=== PATIENT | female | born 2000 | race Caucasian/White ===

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

== ENCOUNTER → 2018-03-22 | Outpatient (CLI) | payer BC, OTHER ==
[2018-03-22 15:35] LABS: Basophils % (A) 0 %; Eosinophils % (A) 1 %; HCT 37.1 % (34.0-46.0); HGB 12.5 gm/dL (11.4-16.0); Lymphocytes # (A) 1.5 k/uL (1.0-4.8); Lymphocytes % (A) 26 %; MCH 30.4 pg (25.0-35.0); MCHC 33.5 g/dL (31.0-37.0); MCV 90.7 fL (80.0-100.0); Mean Platelet Volume 7.8; Monocytes # (A) 0.2 k/uL (0-1.0); Monocytes % (A) 4 %; Neutrophils # (A) 3.8 k/uL (1.3-7.7); Neutrophils % (A) 68 %; Platelet Count 226 k/uL (150-450); RBC 4.09 m/uL (3.80-5.40); RDW 12.9 % (11.5-15.5); WBC 5.6 k/uL (4.0-11.0)
== END | disposition home or self-care (01) ==
LOC: LABPAT 15:04
PROVIDERS: ATTEND Obstetrics & Gynecology
DX: Z01.812 Encounter for preprocedural laboratory examination (principal)
CPT/HCPCS: 36415; 85025

== ENCOUNTER → 2018-04-02 | Day surgery (SDC) | payer BC, OTHER ==
[2018-04-01 11:06] VITALS: BMI 29.2
[~2018-04-02] MED LIST: ACETAMINOPHEN IV (For NPO) 1,000 MG/100 ML VIAL ONE; BUPIVACAINE (PF) 0.25% 30 ML VIAL SQ ONE; DEXAMETHASONE SOD PHOSPHATE 10 MG/ML 1 ML VIAL IV ONE; GLYCOPYRROLATE 0.2 MG/ML 2 ML VIAL ONE; HYDROcodone/APAP 5-325MG 1 EACH TAB PO ONE; KETOROLAC 30 MG/ML 1 ML VIAL ONE; LACTATED RINGERS 1,000 ML IV SCH; LIDOCAINE 1% 20 ML VIAL (10MG/ML) FOR IV START INTRADERMA ONE; LIDOCAINE 1% INJ 10MG/ML (20 ML MDV) ONE; MEPERIDINE 50 MG/ML SYRINGE ONE; MIDAZOLAM 2 MG/2 ML VIAL IV PRN; MIDAZOLAM 2 MG/2 ML VIAL ONE; NEOSTIGMINE 1 MG/ML 10 ML VIAL ONE; ONDANSETRON 4 MG/2 ML VIAL IVP ONE; ONDANSETRON ODT 4 MG TAB PO ONE; PROPOFOL 10 MG/ML 20 ML VIAL IV ONE; Pre Op ABX Message 1 EACH MISC MISCELLANE ONE; ROCURONIUM BROMIDE 10 MG/ML 10 ML VIAL IV ONE; SCOPOLAMINE 1.5MG/72HR PATCH TRANSDERM ONE; fentaNYL (PF) 50 MCG/ML 2 ML AMP ONE
--- NOTE | 2018-04-02 08:24 | P.HPOB ---
History of Present Illness H&P Date: 04/02/18 Chief Complaint: ovarian cyst 17 year old G0 presents for laparoscopic aspiration of right ovarian cyst and possible oopherectomy, possible laparotomy. She has a 5.5cm right ovarian cyst. Review of Systems All systems: negative Constitutional: Denies chills, Denies fever Eyes: denies blurred vision, denies pain Ears, nose, mouth and throat: Denies headache, Denies sore throat Cardiovascular: Denies chest pain, Denies shortness of breath Respiratory: Denies cough Gastrointestinal: Denies abdominal pain, Denies diarrhea, Denies nausea, Denies vomiting Genitourinary: Denies dysuria, Denies hematuria Musculoskeletal: Denies myalgias Integumentary: Denies pruritus, Denies rash Neurological: Denies numbness, Denies weakness Psychiatric: Denies anxiety, Denies depression Endocrine: Denies fatigue, Denies weight change Past Medical History Past Medical History: No Reported History Additional Past Medical History / Comment(s): Hx bronchitis. History of Any Multi-Drug Resistant Organisms: MRSA Date of last positivie culture/infection: 2012 MDRO Source:: Right rib area Past Surgical History: No Surgical Hx Reported Additional Past Surgical History / Comment(s): Plastic surgery below right eye as an . Past Anesthesia/Blood Transfusion Reactions: No Reported Reaction Past Psychological History: No Psychological Hx Reported Smoking Status: Never smoker Past Alcohol Use History: None Reported Past Drug Use History: None Reported - Past Family History Mother Family Medical History: No Reported History Medications and Allergies Home Medications Medication Instructions Recorded Confirmed Type Acetaminophen Tab [Tylenol Tab] 650 mg PO Q4H PRN 04/01/18 04/01/18 History Allergies Allergy/AdvReac Type Severity Reaction Status Date / Time No Known Allergies Allergy Verified 04/01/18 10:55 Exam Osteopathic Statement: *. No significant issues noted on an osteopathic structural exam other than those noted in the History and Physical/Consult. Heart: Regular rate and rhythm Lungs: Clear to auscultation bilaterally Abdomen: Soft, mildly tender Extremities: Negative Homans sign Assessment and Plan (1) Right ovarian cyst Status: Acute Code(s): N83.201 - UNSPECIFIED OVARIAN CYST, RIGHT SIDE SNOMED Code(s): 59974311 Plan: 1. laparoscopic aspiration of right ovarian cyst, possible oopherectomy, possible laparotomy
[2018-04-02 10:56] VITALS: RESP 16
--- NOTE | 2018-04-02 12:47 | P.OP ---
Date of Procedure: 04/02/18 Preoperative Diagnosis: 1. right ovarian cyst Postoperative Diagnosis: 1. endometriosis Procedure(s) Performed: Diagnostic laparoscopy with cauterization of endometriosis Anesthesia: BREANN Surgeon: Maddy Plunkett Estimated Blood Loss (ml): 5 IV fluids (ml): 700 Urine output (ml): 150 Pathology: none sent Condition: stable Disposition: PACU Operative Findings: Evidence of ruptured right ovarian cyst, fluid in posterior cul-de-sac, endometriosis along the right uterosacral ligament and in the left ovarian fossa , and in the posterior cul-de-sac. Description of Procedure: Patient was taken to the operating room where general anesthesia was obtained without difficulty. She was prepped and draped in normal sterile fashion in the dorsal lithotomy position, legs placed in the Yoav stirrups. Bladder drained of all urine. [place] speculum placed in the vagina and the anterior lip the cervix was grasped with single-tooth tenaculum. The uterus is sounded to 7 cm and the kroner manipulator was placed. Attention was then turned to the abdomen and gloves were changed. A 10 mm infraumbilical incision was made the scalpel and 10 mm optical trocar was placed under direct visualization. A 5 mm suprapubic Incision was made and a 5 mm optical trocar was placed under direct visualization. Survey of the pelvis revealed enlarged bilateral ovaries. There was evidence of ruptured right ovarian cyst, with some areas of erythema on the right ovary. There was endometriosis seen on the right uterosacral ligaments, the left ovarian fossa and the posterior cul-de-sac. These areas were cauterized with the hook cautery. There was a moderate amount of clear fluid and the posterior cul-de-sac. The fluid was removed with suction. All instruments were then removed from the abdomen and vagina. The 10 mm infraumbilical incision was closed with 0 Vicryl and the fascial layer and then 4-0 Vicryl in a subcuticular fashion. The 5 mm incision was closed with 4-0 Vicryl in a subcuticular fashion. Patient tolerated procedure well, sponge and instrument counts correct 2 and she was taken to recovery room in stable condition.
[2018-04-02 13:03] VITALS: TEMP 97
[2018-04-02] MEDS: fentaNYL (PF) 50 MCG/ML 2 ML AMP IV PRN ×2 (13:08→13:19)
[2018-04-02 13:59] VITALS: BP 140/71; PULSE 70
== END | disposition home or self-care (01) ==
LOC: OR 09:41
PROVIDERS: ATTEND Obstetrics & Gynecology
DX: N80.1 Endometriosis of ovary (principal); Z86.14 Personal history of Methicillin resistant Staphylococcus aureus infection
CPT/HCPCS: 81025; 58662; J2250; J1100; J2710; J2175; J2405; J2001; J3010; J1885; J0131; J2704

== ENCOUNTER 2018-06-01 14:51 | Emergency (ER) | payer BC, OTHER ==
[2018-06-01 15:02] VITALS: BP 135/96; PULSE 62; RESP 16; TEMP 98.4
[2018-06-01] MEDS ORDERED: DIPH,PERTUS(ACELL)TETVAC-LF 0.5 ML VIAL IM ONE (15:11)
--- NOTE | 2018-06-01 15:23 | ED ---
General Adult HPI - General Chief complaint: Wound/Laceration Stated complaint: Foot laceration Time Seen by Provider: 06/01/18 15:09 Source: patient, RN notes reviewed Mode of arrival: ambulatory Limitations: no limitations - History of Present Illness Initial comments: Patient 17-year-old female presenting to the emergency room today with a chief complaint of needing a tetanus shot. Patient's does admit that 2 days ago she scraped her left pinky toe on a [place]roy car. She does admit that it did break the skin. She states appears to be healing well. She states that she knows that her tetanus is not up to date. Patient denies any other complaints or symptoms. - Related Data Home Medications Medication Instructions Recorded Confirmed Acetaminophen Tab [Tylenol Tab] 650 mg PO Q4H PRN 04/01/18 04/02/18 Previous Rx's Medication Instructions Recorded HYDROcodone/APAP 5-325MG [[place] 1 - 2 tab PO Q6HR PRN #20 tab 04/02/18 5-325] Ibuprofen [Motrin] 600 mg PO Q6HR PRN #30 tab 04/02/18 Allergies Allergy/AdvReac Type Severity Reaction Status Date / Time No Known Allergies Allergy Verified 06/01/18 15:02 Review of Systems ROS Statement: Those systems with pertinent positive or pertinent negative responses have been documented in the HPI. ROS Other: All systems not noted in ROS Statement are negative. Past Medical History Past Medical History: No Reported History History of Any Multi-Drug Resistant Organisms: None Reported Past Surgical History: No Surgical Hx Reported Past Psychological History: No Psychological Hx Reported Smoking Status: Never smoker Past Alcohol Use History: None Reported Past Drug Use History: None Reported General Exam - General Exam Comments Initial Comments: General: The patient is awake and alert, in no distress, and does not appear acutely ill. Neck: The neck is supple, there is no tenderness or JVD. Musculoskeletal: Full range of motion. Sensations intact. Pedal pulse 2+. Neurological: A&O x 3. CN II-XII intact, There are no obvious motor or sensory deficits. Coordination appears grossly intact. Speech is normal. Skin: Superficial abrasion to the lateral aspect of the left fifth toe. No redness, swelling or sign of infection. Psychiatric: Normal mood and affect. Limitations: no limitations Course Vital Signs 06/01/18 14:59 Temperature 98.4 F Pulse Rate 62 Respiratory 16 Rate Blood Pressure 135/96 O2 Sat by Pulse 100 Oximetry Medical Decision Making - Medical Decision Making Patient's left fifth toe healing well. Patient's no sign of infection. Tetanus Updated patient advised continue watch for signs of infection. Disposition Clinical Impression: Toe abrasion Disposition: HOME SELF-CARE Condition: Good Instructions: Abrasion (ED) Additional Instructions: Please continue to watch for any signs of infection which may include increased pain, swelling, redness, fever or chills. Is patient prescribed a controlled substance at d/c from ED?: No Referrals: Cristina Winter MD [Primary Care Provider] - 1-2 days Time of Disposition: 15:22
== END 2018-06-01 15:36 | disposition home or self-care (01) ==
LOC: EC 14:51
DX: S90.415A Abrasion, left lesser toe(s), initial encounter (principal); Z23 Encounter for immunization; W22.8XXA Striking against or struck by other objects, initial encounter
CPT/HCPCS: 90471; 90715; 99282

== ENCOUNTER 2018-12-23 21:52 | Inpatient (IN) | payer BC, OTHER ==
[2018-12-23] MEDS ORDERED: SODIUM CHLORIDE 0.9% 1,000 ML IV STA (21:58)
--- NOTE | 2018-12-23 22:00 | ED ---
General Adult HPI - General Stated complaint: Fall Time Seen by Provider: 12/23/18 21:57 - History of Present Illness Initial comments: Laura is a pleasant 18-year-old female who is brought to the emergency department today for evaluation of syncopal episode. Patient reports that she was preparing to leave her brother's home, she states that she stood up and was walking up the stairs when she began to feel very lightheaded. She walked out the front door and felt like she may pass out so she sat down. Patient states that she doesn't recall exactly what happened after sitting down but she was feeling as though she was very lightheaded and her heart was racing she felt like her vision was darkening. Patient's significant other at bedside states the patient then fell backwards from a sitting position onto the ground, her eyes were open and her pupils appear to be dilated. Significant mother reports that the patient was nonresponsive for about 20 seconds and then came around and was a little bit confused about what happened but otherwise back to baseline immediately. There was no seizure-like or shaking activity. Patient and witnesses became concerned and called 911 for transport to the hospital. Patient reports she's been lightheaded in the past but never had a syncopal episode. She has no history of known cardiac disease. No history of DVT or PE. She does state that she was evaluated an outside hospital on Sunday for generalized malaise nausea and vomiting was diagnosed with a urinary tract infection. Patient had not yet obtained her antibiotic prescription for treatment of the urinary tract infection. - Related Data Previous Rx's Medication Instructions Recorded Ibuprofen [Motrin] 600 mg PO Q6HR PRN #30 tab 04/02/18 Allergies Allergy/AdvReac Type Severity Reaction Status Date / Time No Known Allergies Allergy Verified 12/23/18 22:23 Review of Systems ROS Statement: Those systems with pertinent positive or pertinent negative responses have been documented in the HPI. ROS Other: All systems not noted in ROS Statement are negative. Past Medical History Past Medical History: No Reported History History of Any Multi-Drug Resistant Organisms: None Reported Past Surgical History: No Surgical Hx Reported Past Psychological History: No Psychological Hx Reported Smoking Status: Never smoker Past Alcohol Use History: None Reported Past Drug Use History: None Reported General Exam - General Exam Comments Initial Comments: Physical Exam GENERAL: Patient is well-developed and well-nourished. Patient is nontoxic and well- hydrated and is in no distress. HENT: Normocephalic, Atraumatic. EYES: PERRL, EOMI PULMONARY: Unlabored respirations. No audible rales rhonchi or wheezing was noted. CARDIOVASCULAR: There is a regular rate and rhythm without any murmurs gallops or rubs. ABDOMEN: Soft and nontender with normal bowel sounds. SKIN: Skin is clear with no lesions or rashes and otherwise unremarkable. : Deferred NEUROLOGIC: Patient is alert and oriented x3. Moving all extremities spontaneously MUSCULOSKELETAL: Normal extremities with adequate strength and full range of motion. No lower extremity swelling or edema. No calf tenderness. PSYCHIATRIC: Normal psychiatric evaluation. Limitations: no limitations Course Vital Signs 12/23/18 12/23/18 21:54 23:58 Temperature 99.3 F Pulse Rate 84 83 Respiratory 16 16 Rate Blood Pressure 110/59 122/69 O2 Sat by Pulse 98 100 Oximetry EKG Findings - EKG Comments: EKG Findings:: EKG obtained at 2235, rate is 84, there is a P-wave before each QRS, rhythm is sinus, there is normal axis, there are normal intervals, [place] 176, QRS 88, QTC 4:15. There are T-wave inversions in V1 through V4 with some minimal ST depression. There are no ST elevations. There is no evidence of acute infarction. Medical Decision Making - Medical Decision Making Patient was seen and evaluated, vital signs were reviewed history was obtained from patient and EMS Previously healthy 18-year-old female currently diagnosed with urinary tract infection was experiencing nausea and vomiting earlier in the week presents with a syncopal episode. Patient did fall from a seated position backwards however there is no obvious signs of head trauma L feel this warrants further imaging for head trauma. We'll pursue further workup for syncope Labs resulted with an elevated troponin at 0.4, d-dimer is negative however given the patient's age gender and presentation with syncope I will pursue further workup for pulmonary embolism CT pulmonary embolism was negative Patient care was discussed with cardiology on-call doctor per week who recommends admission to hospital continued trending of the troponin, hold heparin at this time This plan was discussed with the patient who is agreeable Admission orders were placed, repeat troponin and cardiac profiles were ordered as well as an echo for tomorrow morning - Lab Data Result diagrams: 12/23/18 22:08 12/23/18 22:08 Lab Results 12/23/18 12/23/18 12/23/18 Range/Units 22:08 22:08 22:08 WBC 6.8 (4.0-11.0) k/uL RBC 3.79 L (3.80-5.40) m/uL Hgb 11.2 L (11.4-16.0) gm/dL Hct 34.2 (34.0-46.0) % MCV 90.3 (80.0-100.0) fL MCH 29.4 (25.0-35.0) pg MCHC 32.6 (31.0-37.0) g/dL RDW 13.7 (11.5-15.5) % Plt Count 184 (150-450) k/uL Neutrophils % 69 % Lymphocytes % 21 % Monocytes % 6 % Eosinophils % 0 % Basophils % 0 % Neutrophils # 4.7 (1.3-7.7) k/uL Lymphocytes # 1.4 (1.0-4.8) k/uL Monocytes # 0.4 (0-1.0) k/uL Eosinophils # 0.0 (0-0.7) k/uL Basophils # 0.0 (0-0.2) k/uL PT (9.0-12.0) sec INR (<1.2) APTT (22.0-30.0) sec D-Dimer (<0.60) mg/L FEU Sodium 138 (137-145) mmol/L Potassium 3.3 L (3.5-5.1) mmol/L Chloride 105 (98-107) mmol/L Carbon Dioxide 22 (22-30) mmol/L Anion Gap 11 mmol/L BUN 10 (7-17) mg/dL Creatinine 0.51 L (0.52-1.04) mg/dL Est GFR (CKD-EPI)AfAm >90 (>60 ml/min/1.73 sqM) Est GFR (CKD-EPI)NonAf >90 (>60 ml/min/1.73 sqM) Glucose 150 H (74-99) mg/dL Calcium 9.1 (8.4-10.2) mg/dL Magnesium 1.9 (1.6-2.3) mg/dL Total Bilirubin 0.6 (0.2-1.3) mg/dL AST 29 (14-36) U/L ALT 38 (9-52) U/L Alkaline Phosphatase 50 (38-126) U/L Total Creatine Kinase 60 (30-135) U/L CK-MB (CK-2) 0.8 (0.0-2.4) ng/mL CK-MB (CK-2) Rel Index 1.3 Troponin I 0.421 H* (0.000-0.034) ng/mL Total Protein 6.5 (6.3-8.2) g/dL Albumin 3.7 (3.5-5.0) g/dL Urine Color Urine Appearance (Clear) Urine pH (5.0-8.0) Ur Specific [place] (1.001-1.035) Urine Protein (Negative) Urine Glucose (UA) (Negative) Urine Ketones (Negative) Urine Blood (Negative) Urine Nitrite (Negative) Urine Bilirubin (Negative) Urine Urobilinogen (<2.0) mg/dL Ur Leukocyte Esterase (Negative) Urine RBC (0-5) /hpf Urine WBC (0-5) /hpf Urine WBC Clumps (None) /hpf Ur Squamous Epith Cells (0-4) /hpf Urine Bacteria (None) /hpf Hyaline Casts (0-2) /lpf Urine Mucus (None) /hpf Urine Opiates Screen (NotDetected) Ur Oxycodone Screen (NotDetected) Urine Methadone Screen (NotDetected) Ur Propoxyphene Screen (NotDetected) Ur Barbiturates Screen (NotDetected) U Tricyclic Antidepress (NotDetected) Ur Phencyclidine Scrn (NotDetected) Ur Amphetamines Screen (NotDetected) U Methamphetamines Scrn (NotDetected) U Benzodiazepines Scrn (NotDetected) Urine Cocaine Screen (NotDetected) U Marijuana (THC) Screen (NotDetected) 12/23/18 12/23/18 12/23/18 Range/Units 22:08 22:40 22:40 WBC (4.0-11.0) k/uL RBC (3.80-5.40) m/uL Hgb (11.4-16.0) gm/dL Hct (34.0-46.0) % MCV (80.0-100.0) fL MCH (25.0-35.0) pg MCHC (31.0-37.0) g/dL RDW (11.5-15.5) % Plt Count (150-450) k/uL Neutrophils % % Lymphocytes % % Monocytes % % Eosinophils % % Basophils % % Neutrophils # (1.3-7.7) k/uL Lymphocytes # (1.0-4.8) k/uL Monocytes # (0-1.0) k/uL Eosinophils # (0-0.7) k/uL Basophils # (0-0.2) k/uL PT 10.3 (9.0-12.0) sec INR 1.0 (<1.2) APTT 24.2 (22.0-30.0) sec D-Dimer 0.45 (<0.60) mg/L FEU Sodium (137-145) mmol/L Potassium (3.5-5.1) mmol/L Chloride (98-107) mmol/L Carbon Dioxide (22-30) mmol/L Anion Gap mmol/L BUN (7-17) mg/dL Creatinine (0.52-1.04) mg/dL Est GFR (CKD-EPI)AfAm (>60 ml/min/1.73 sqM) Est GFR (CKD-EPI)NonAf (>60 ml/min/1.73 sqM) Glucose (74-99) mg/dL Calcium (8.4-10.2) mg/dL Magnesium (1.6-2.3) mg/dL Total Bilirubin (0.2-1.3) mg/dL AST (14-36) U/L ALT (9-52) U/L Alkaline Phosphatase (38-126) U/L Total Creatine Kinase (30-135) U/L CK-MB (CK-2) (0.0-2.4) ng/mL CK-MB (CK-2) Rel Index Troponin I (0.000-0.034) ng/mL Total Protein (6.3-8.2) g/dL Albumin (3.5-5.0) g/dL Urine Color Yellow Urine Appearance Cloudy H (Clear) Urine pH 6.0 (5.0-8.0) Ur Specific [place] 1.011 (1.001-1.035) Urine Protein 1+ H (Negative) Urine Glucose (UA) Negative (Negative) Urine Ketones Trace H (Negative) Urine Blood Moderate H (Negative) Urine Nitrite Negative (Negative) Urine Bilirubin Negative (Negative) Urine Urobilinogen <2.0 (<2.0) mg/dL Ur Leukocyte Esterase Large H (Negative) Urine RBC 31 H (0-5) /hpf Urine WBC >182 H (0-5) /hpf Urine WBC Clumps Few H (None) /hpf Ur Squamous Epith Cells 4 (0-4) /hpf Urine Bacteria Many H (None) /hpf Hyaline Casts 3 H (0-2) /lpf Urine Mucus Many H (None) /hpf Urine Opiates Screen Not Detected (NotDetected) Ur Oxycodone Screen Not Detected (NotDetected) Urine Methadone Screen Not Detected (NotDetected) Ur Propoxyphene Screen Not Detected (NotDetected) Ur Barbiturates Screen Not Detected (NotDetected) U Tricyclic Antidepress Not Detected (NotDetected) Ur Phencyclidine Scrn Not Detected (NotDetected) Ur Amphetamines Screen Not Detected (NotDetected) U Methamphetamines Scrn Not Detected (NotDetected) U Benzodiazepines Scrn Not Detected (NotDetected) Urine Cocaine Screen Not Detected (NotDetected) U Marijuana (THC) Screen Detected H (NotDetected) Critical Care Time Critical Care Time: Yes Total Critical Care Time: 20 Critical Care Time: Critical Care Critical care time was exclusive of separately billable procedures and treating other patients Critical care was necessary to treat or prevent imminent or life-threatening deterioration. Critical care was time spent personally by me on the following activities: development of treatment plan with patient or surrogate, discussions with consultants, discussions with primary provider, evaluation of patient's response to treatment, examination of patient, obtaining history from patient or surrogate, ordering and performing treatments and interventions, ordering and review of laboratory studies, ordering and review of radiographic studies, pulse oximetry, re-evaluation of patient's condition and review of old charts. Disposition Clinical Impression: Syncope Disposition: ADMITTED IP TO THIS [facility] Condition: Good Is patient prescribed a controlled substance at d/c from ED?: No Referrals: Cristina Winter MD [Primary Care Provider] - 1-2 days
[2018-12-23 22:28] LABS: Basophils % (A) 0 %; Eosinophils % (A) 0 %; HCT 34.2 % (34.0-46.0); HGB 11.2 gm/dL (11.4-16.0); Lymphocytes # (A) 1.4 k/uL (1.0-4.8); Lymphocytes % (A) 21 %; MCH 29.4 pg (25.0-35.0); MCHC 32.6 g/dL (31.0-37.0); MCV 90.3 fL (80.0-100.0); Mean Platelet Volume 7.3; Monocytes # (A) 0.4 k/uL (0-1.0); Monocytes % (A) 6 %; Neutrophils # (A) 4.7 k/uL (1.3-7.7); Neutrophils % (A) 69 %; Platelet Count 184 k/uL (150-450); RBC 3.79 m/uL (3.80-5.40); RDW 13.7 % (11.5-15.5); WBC 6.8 k/uL (4.0-11.0)
[2018-12-23 22:33] LABS: ALT 38 U/L (9-52); AST 29 U/L (14-36); Albumin 3.7 g/dL (3.5-5.0); Alkaline Phosphatase 50 U/L (38-126); Anion Gap 11 mmol/L; Blood Urea Nitrogen 10 mg/dL (7-17); Calcium 9.1 mg/dL (8.4-10.2); Carbon Dioxide 22 mmol/L (22-30); Chloride 105 mmol/L (98-107); Glucose 150 mg/dL (74-99); Magnesium 1.9 mg/dL (1.6-2.3); Potassium 3.3 mmol/L (3.5-5.1); Sodium 138 mmol/L (137-145); Total Bilirubin 0.6 mg/dL (0.2-1.3); Total Protein 6.5 g/dL (6.3-8.2)
[2018-12-23 22:41] LABS: D-Dimer 0.45 mg/L FEU (<0.60); Partial Thromboplastin Time 24.2 sec (22.0-30.0); Prothrombin Time 10.3 sec (9.0-12.0)
[2018-12-23 22:49] LABS: Creatine Kinase MB 0.8 ng/mL (0.0-2.4)
[2018-12-23 22:52] LABS: Troponin I 0.421 ng/mL (0.000-0.034)
[2018-12-23 23:02] LABS: Appearance,Urine Cloudy (Clear); Bacteria,Urine Many /hpf; Bilirubin,Urine Negative (Negative); Blood,Urine Moderate (Negative); Color,Urine Yellow; Glucose,Urine (UA) Negative (Negative); Hyaline Casts,Urine 3 /lpf (0-2); Ketones,Urine Trace (Negative); Leukocyte Esterase,Urine Large (Negative); Mucus,Urine Many /hpf; Nitrite,Urine Negative (Negative); Protein,Urine 1+ (Negative); RBC,Urine 31 /hpf (0-5); Specific Gravity,Urine 1.011 (1.001-1.035); Squamous Epithelial Cell,Urine 4 /hpf (0-4); Urobilinogen,Urine <2.0 mg/dL (<2.0); WBC,Urine >182 /hpf (0-5)
[2018-12-23 23:31] LABS: Amphetamine Screen,Urine Not Detected (NotDetected); Barbiturate Screen,Urine Not Detected (NotDetected); Benzodiazepines Screen,Urine Not Detected (NotDetected); Cocaine Screen,Urine Not Detected (NotDetected); Methadone Screen, Urine Not Detected (NotDetected); Opiate Screen,Urine Not Detected (NotDetected); Oxycodone Screen, Urine Not Detected (NotDetected); Phencyclidine Screen,Urine Not Detected (NotDetected); Tricyclic Antidepressant,Urine Not Detected (NotDetected); Urn Cannabinoid Scrn Detected (NotDetected)
--- NOTE | 2018-12-23 23:53 | CT ---
EXAMINATION TYPE: CT chest angio for PE DATE OF EXAM: 12/23/2018 COMPARISON: None HISTORY: R/O PE chest pain CT DLP: 238.30 mGycm Automated exposure control for dose reduction was used. CONTRAST: CT Chest for pulmonary embolism performed with with IV Contrast, patient injected with 60 mL of Isovu e 370. FINDINGS: There are 3-D post processed images. The heart and mediastinum are normal. Lungs are clear of infiltrate. There is no mediastinal adenopat hy. There are no hilar masses. Thoracic aorta appears normal. Heart size is normal. There is no pleur al effusion. There is no pericardial effusion. There is normal contrast opacification of the pulmonary arteries. There are no filling defects. IMPRESSION: Negative exam. No evidence of pulmonary embolism.
--- NOTE | 2018-12-24 04:21 | XR ---
EXAMINATION TYPE: XR chest 2V DATE OF EXAM: 12/23/2018 COMPARISON: 01/19/2017 HISTORY: Syncope TECHNIQUE: Frontal and lateral views of the chest are obtained. FINDINGS: Heart and mediastinum are normal. Lungs are clear. Diaphragm is normal. Bony thorax appear s normal. IMPRESSION: Normal chest. No change.
[2018-12-24 04:32] VITALS: BMI 26.6
[2018-12-24 06:06] LABS: Creatine Kinase MB 0.6 ng/mL (0.0-2.4)
[2018-12-24 06:09] LABS: Troponin I 0.21 ng/mL (0.000-0.034)
[2018-12-24] MEDS ORDERED: Potassium Replacement Protocol 1 EACH MISC MISCELLANE PRN (06:19)
[2018-12-24] MEDS: POTASSIUM CHLORIDE ER 20 MEQ TAB.ER PO SCH ×2 (06:50→09:00)
--- NOTE | 2018-12-24 08:18 | CT ---
EXAMINATION TYPE: CT brain wo con DATE OF EXAM: 12/24/2018 COMPARISON: None HISTORY: syncope CT DLP: 1040.[address] of the brain was performed. The ventricles, basal cisterns and sulci overlying the cerebral convexities demonstrate a normal appe arance. There is no evidence for intracranial hemorrhage or sulcal effacement. No mass effects are seen. Osseous calvarium is intact. If symptoms persist consider MRI as clinically warranted. IMPRESSION: 1. No acute intracranial process is seen at this time.
[2018-12-24 10:17] LABS: Creatine Kinase MB 0.8 ng/mL (0.0-2.4)
[2018-12-24 10:20] LABS: Troponin I 0.406 ng/mL (0.000-0.034)
--- NOTE | 2018-12-24 11:41 | P.CRDCN ---
History of Present Illness Consult date: 12/24/18 Chief complaint: Syncope History of present illness: This is a pleasant 1-year-old female patient with no previous medical history who was admitted to the hospital with syncopal episode. The patient was in her usual state of health until yesterday when she was preparing to leave home and then she stood up and suddenly she felt weak as well as she felt dizzy and lightheaded. She sat down and after that she did have a syncopal episode witnessed right the people around her. The syncopal episode lasted for about 20 seconds and according to people around her the patient did have dilate the pupil. No symptoms of chest pain or chest discomfort. No incontinence. No seizure like activity noted. The patient does not have any past medical history and she does not take any medications for any medical problem. The past surgical history is also not significant. She states she does not smoke but apparently the urine drug screen came in positive for marijuana. She does have very significant family history of coronary artery disease with her father who at age 50 because of massive heart attack. We get involved in the care of the patient because her troponin came in to be slightly abnormal with 3 abnormal sets. The EKG showed sinus rhythm with T- wave inversion in the anteroseptal leads. The computed tomography scan of the brain did not show any acute abnormalities. The UA came in to be positive for UTI. Currently the patient is on antibiotic. The urine drug screen came in to be also positive for marijuana. Past Medical History Past Medical History: No Reported History Additional Past Medical History / Comment(s): endometriosis History of Any Multi-Drug Resistant Organisms: None Reported Past Surgical History: No Surgical Hx Reported Additional Past Surgical History / Comment(s): laprascopic ovarian cyst removal Past Anesthesia/Blood Transfusion Reactions: No Reported Reaction Smoking Status: Never smoker - Past Family History Mother Additional Family Medical History / Comment(s): ovarian cysts Father Family Medical History: Myocardial Infarction ([place]) Additional Family Medical History / Comment(s): father in june from a heart attack Medications and Allergies Home Medications Medication Instructions Recorded Confirmed Type Ibuprofen [Motrin] 600 mg PO Q6HR PRN #30 tab 04/02/18 12/23/18 Rx Allergies Allergy/AdvReac Type Severity Reaction Status Date / Time No Known Allergies Allergy Verified 12/23/18 22:23 Physical Exam Vitals: Vital Signs Temp Pulse Pulse Resp BP BP Pulse Ox 12/24/18 09:06 89 16 12/24/18 09:05 99.3 F 89 16 111/57 96 12/24/18 04:31 97.8 F 89 18 129/70 100 12/24/18 04:00 97.8 F 89 18 129/70 100 12/24/18 03:33 75 20 113/80 97 12/24/18 00:00 79 22 122/69 99 12/23/18 23:58 83 16 122/69 100 12/23/18 21:54 99.3 F 84 16 110/59 98 Intake and Output 12/23/18 12/24/18 12/24/18 22:59 06:59 14:59 Intake Total 1050 Balance 1050 Intake: Amount of Fluid Infused ( 1050 ml) Other: Voiding Method Toilet Toilet Weight 69.853 kg 68.4 kg - Constitutional General appearance: no acute distress - Respiratory Respiratory: bilateral: CTA - Cardiovascular Rhythm: regular Heart sounds: normal: S1, S2 Results 12/23/18 22:08 12/23/18 22:08 Cardiac Enzymes 12/23/18 12/23/18 12/24/18 Range/Units 22:08 22:08 04:01 AST 29 (14-36) U/L CK-MB (CK-2) 0.8 0.6 (0.0-2.4) ng/mL Troponin I 0.421 H* 0.210 H* (0.000-0.034) ng/mL 12/24/18 Range/Units 09:16 AST (14-36) U/L CK-MB (CK-2) 0.8 (0.0-2.4) ng/mL Troponin I 0.406 H* (0.000-0.034) ng/mL Coagulation 12/23/18 Range/Units 22:08 PT 10.3 (9.0-12.0) sec APTT 24.2 (22.0-30.0) sec CBC 12/23/18 Range/Units 22:08 WBC 6.8 (4.0-11.0) k/uL RBC 3.79 L (3.80-5.40) m/uL Hgb 11.2 L (11.4-16.0) gm/dL Hct 34.2 (34.0-46.0) % Plt Count 184 (150-450) k/uL Comprehensive Metabolic Panel 12/23/18 Range/Units 22:08 Sodium 138 (137-145) mmol/L Potassium 3.3 L (3.5-5.1) mmol/L Chloride 105 (98-107) mmol/L Carbon Dioxide 22 (22-30) mmol/L BUN 10 (7-17) mg/dL Creatinine 0.51 L (0.52-1.04) mg/dL Glucose 150 H (74-99) mg/dL Calcium 9.1 (8.4-10.2) mg/dL AST 29 (14-36) U/L ALT 38 (9-52) U/L Alkaline Phosphatase 50 (38-126) U/L Total Protein 6.5 (6.3-8.2) g/dL Albumin 3.7 (3.5-5.0) g/dL Current Medications Generic Name Dose Route Start Last Admin Trade Name Freq PRN Reason Stop Dose Admin Aspirin 325 mg 12/25/18 09:00 Aspirin PO DAILY MELISSA Ceftriaxone Sodium 1,000 mg/ 50 mls @ 100 mls/hr 12/24/18 21:00 Sodium Chloride IVPB HS MELISSA Miscellaneous Information 1 each 12/24/18 06:19 Potassium Per Protocol MISCELLANE DAILY PRN Per Protocol Protocol Intake and Output 12/23/18 12/24/18 12/24/18 22:59 06:59 14:59 Intake Total 1050 Balance 1050 Intake: Amount of Fluid Infused ( 1050 ml) Other: Voiding Method Toilet Toilet Weight 69.853 kg 68.4 kg 12/23/18 22:08 12/23/18 22:08 Assessment and Plan Assessment: Assessment #1 syncopal episode of unknown etiology at this point #2 mildly abnormal cardiac enzymes Plan #1 the syncopal episode could be secondary to orthostatic hypotension #2 I am concerned about a cardiac etiology giving her abnormal troponin. #3 I am going to obtain an echocardiogram was Doppler. #4 check the TSH free T4 #5 follow-up with the patient.
[2018-12-24 15:24] VITALS: RESP 16
[2018-12-24] MEDS: SODIUM CHLORIDE 0.9% 1,000 ML IV SCH (15:50)
--- NOTE | 2018-12-24 18:26 | P.HPIM ---
History of Present Illness Pleasant 18-year-old female came in with complaints of syncope and significantly abnormal urine and fever of high-grade although she doesn't have any high-grade fever here patient is single abnormal urine. Patient was lightheaded and lost consciousness denied any seizure-like activity loss of bowel or bladder continence patient's troponins are minimally elevated EKG did not show any acute ST-T wave changes patient has pleuritic chest pain negative for pulmonary embolism troponins are 0.2 and 0.4 respectively. Patient doesn't have any premature coronary artery disease. Patient denied any cough patient denied any dysuria. Patient sees his urine is independent normal with elevated leukocyte esterase nitrate and increased white blood cell count and WBC clumps Review of Systems REVIEW OF SYSTEMS: CONSTITUTIONAL: No fever, no malaise, no fatigue. HEENT: No recent visual problems or hearing problems. Denied any sore throat. CARDIOVASCULAR: No orthopnea, PND, no palpitations, PULMONARY: No shortness of breath, no cough, no hemoptysis. GASTROINTESTINAL: No diarrhea, no nausea, no vomiting, no abdominal pain. NEUROLOGICAL: No headaches, no weakness, no numbness. HEMATOLOGICAL: Denies any bleeding or petechiae. GENITOURINARY: Denies any burning micturition, frequency, or urgency. MUSCULOSKELETAL/RHEUMATOLOGICAL: Denies any joint pain, swelling, or any muscle pain. ENDOCRINE: Denies any polyuria or polydipsia. The rest of the 14-point review of systems is negative. Past Medical History Past Medical History: No Reported History Additional Past Medical History / Comment(s): endometriosis History of Any Multi-Drug Resistant Organisms: None Reported Past Surgical History: No Surgical Hx Reported Additional Past Surgical History / Comment(s): laprascopic ovarian cyst removal Past Anesthesia/Blood Transfusion Reactions: No Reported Reaction Smoking Status: Never smoker - Past Family History Mother Additional Family Medical History / Comment(s): ovarian cysts Father Family Medical History: Myocardial Infarction ([place]) Additional Family Medical History / Comment(s): father in june from a heart attack Medications and Allergies Home Medications Medication Instructions Recorded Confirmed Type Ibuprofen [Motrin] 600 mg PO Q6HR PRN #30 tab 04/02/18 12/23/18 Rx Allergies Allergy/AdvReac Type Severity Reaction Status Date / Time No Known Allergies Allergy Verified 12/23/18 22:23 Physical Exam Vitals: Vital Signs Temp Pulse Pulse Resp BP BP Pulse Ox 12/24/18 15:24 90 16 12/24/18 15:23 99.9 F H 90 16 120/72 96 12/24/18 12:04 89 18 12/24/18 12:03 98.4 F 89 18 127/61 96 12/24/18 09:06 89 16 12/24/18 09:05 99.3 F 89 16 111/57 96 12/24/18 04:31 97.8 F 89 18 129/70 100 12/24/18 04:00 97.8 F 89 18 129/70 100 12/24/18 03:33 75 20 113/80 97 12/24/18 00:00 79 22 122/69 99 12/23/18 23:58 83 16 122/69 100 12/23/18 21:54 99.3 F 84 16 110/59 98 Intake and Output 12/24/18 12/24/18 12/24/18 06:59 14:59 22:59 Intake Total 1050 1070 Output Total 500 Balance 1050 570 Intake: Amount of Fluid Infused ( 1050 ml) Intake, IV Titration 400 Amount Sodium Chloride 0.9% 1, 400 000 ml @ 100 mls/hr IV . Q10H [facility] Rx#:[id number] Oral 670 Output: Urine 500 Other: Voiding Method Toilet Toilet Toilet # Voids 1 Weight 68.4 kg PHYSICAL EXAMINATION: GENERAL: The patient is alert and oriented x3, not in any acute distress. Well developed, well nourished. HEENT: Pupils are round and equally reacting to light. EOMI. No scleral icterus. No conjunctival pallor. Normocephalic, atraumatic. No pharyngeal erythema. No thyromegaly. CARDIOVASCULAR: S1 and S2 present. No murmurs, rubs, or gallops. PULMONARY: Chest is clear to auscultation, no wheezing or crackles. ABDOMEN: Soft, nontender, nondistended, normoactive bowel sounds. No palpable organomegaly. MUSCULOSKELETAL: No joint swelling or deformity. EXTREMITIES: No cyanosis, clubbing, or pedal edema. NEUROLOGICAL: Gross neurological examination did not reveal any focal deficits. SKIN: No rashes. Results CBC & Chem 7: 12/23/18 22:08 12/23/18 22:08 Labs: Abnormal Lab Results - Last 24 Hours (Table) 12/23/18 12/23/18 12/23/18 Range/Units 22:08 22:08 22:08 RBC 3.79 L (3.80-5.40) m/uL Hgb 11.2 L (11.4-16.0) gm/dL ESR (0-20) mm/hr Potassium 3.3 L (3.5-5.1) mmol/L Creatinine 0.51 L (0.52-1.04) mg/dL Glucose 150 H (74-99) mg/dL Troponin I 0.421 H* (0.000-0.034) ng/mL Urine Appearance (Clear) Urine Protein (Negative) Urine Ketones (Negative) Urine Blood (Negative) Ur Leukocyte Esterase (Negative) Urine RBC (0-5) /hpf Urine WBC (0-5) /hpf Urine WBC Clumps (None) /hpf Urine Bacteria (None) /hpf Hyaline Casts (0-2) /lpf Urine Mucus (None) /hpf U Marijuana (THC) Screen (NotDetected) 12/23/18 12/23/18 12/24/18 Range/Units 22:40 22:40 04:01 RBC (3.80-5.40) m/uL Hgb (11.4-16.0) gm/dL ESR (0-20) mm/hr Potassium (3.5-5.1) mmol/L Creatinine (0.52-1.04) mg/dL Glucose (74-99) mg/dL Troponin I 0.210 H* (0.000-0.034) ng/mL Urine Appearance Cloudy H (Clear) Urine Protein 1+ H (Negative) Urine Ketones Trace H (Negative) Urine Blood Moderate H (Negative) Ur Leukocyte Esterase Large H (Negative) Urine RBC 31 H (0-5) /hpf Urine WBC >182 H (0-5) /hpf Urine WBC Clumps Few H (None) /hpf Urine Bacteria Many H (None) /hpf Hyaline Casts 3 H (0-2) /lpf Urine Mucus Many H (None) /hpf U Marijuana (THC) Screen Detected H (NotDetected) 12/24/18 12/24/18 Range/Units 09:16 09:16 RBC (3.80-5.40) m/uL Hgb (11.4-16.0) gm/dL ESR 54 H (0-20) mm/hr Potassium (3.5-5.1) mmol/L Creatinine (0.52-1.04) mg/dL Glucose (74-99) mg/dL Troponin I 0.406 H* (0.000-0.034) ng/mL Urine Appearance (Clear) Urine Protein (Negative) Urine Ketones (Negative) Urine Blood (Negative) Ur Leukocyte Esterase (Negative) Urine RBC (0-5) /hpf Urine WBC (0-5) /hpf Urine WBC Clumps (None) /hpf Urine Bacteria (None) /hpf Hyaline Casts (0-2) /lpf Urine Mucus (None) /hpf U Marijuana (THC) Screen (NotDetected) Microbiology - Last 24 Hours (Table) 12/23/18 22:40 Urine Culture - Preliminary Urine,Voided Assessment and Plan Plan: -Sepsis secondary to urinary tract infection for which patient on Rocephin which will be continued -Syncope probably due to UTI and the hypotension related to UTI patient will be started on IV fluids and will be continued on IV fluids - Hyperkalemia: Potassium will be supplemented -Minimally elevated troponin secondary to sepsis and elevated ESR secondary to sepsis. Cardiology evaluated the patient because of minimally elevated troponins -Pleuritic chest pain Musko skeletal in nature PE was ruled out.
--- NOTE | 2018-12-24 20:20 | ECHOF ---
Referral Reason:syncope, elevated trop MEASUREMENTS -------- HEIGHT: 160.0 cm WEIGHT: 68.0 kg BP: 129/70 IVSd: 1.0 cm (0.6 - 1.1) LVIDd: 4.7 cm (3.9 - 5.3) LVPWd: 1.0 cm (0.6 - 1.1) IVSs: 1.4 cm LVIDs: 2.9 cm LVPWs: 1.4 cm RVIDd: 3.1 cm (< 3.3) LAESV Index (A-L): 14.68 ml/m Ao Diam: 2.5 cm (2.0 - 3.7) LA Diam: 3.0 cm (2.7 - 3.8) AV Cusp: 1.8 cm (1.5 - 2.6) EPSS: 0.5 cm MV E Sonny: 1.27 m/s MV DecT: 244 ms MV A Sonny: 0.84 m/s MV E/A Ratio: 1.52 RAP: 5.00 mmHg RVSP: 24.22 mmHg MV EF SLOPE: 132.56 mm/s (70 - 150) MV EXCURSION: 1.94 cm (> 18.000) FINDINGS -------- Sinus rhythm. This was a technically good study. The left ventricular size is normal. Left ventricular wall thickness is normal. Overall left vent ricular systolic function is normal with, an EF between 55 - 60 %. The right ventricle is normal in size and function. Normal LA size by volume 22+/-6 ml/m2. The right atrium is normal in size. The aortic valve is trileaflet, and appears structurally normal. No aortic stenosis or regurgitation. The mitral valve leaflets are mildly thickened. There is trace to mild mitral regurgitation. Trace tricuspid regurgitation present. Right ventricular systolic pressure is normal at < 35 mmHg. There is no evidence of pulmonary hypertension. Trace/mild (physiologic) pulmonic regurgitation. The aortic root size is normal. Normal inferior vena cava with normal inspiratory collapse consistent with estimated right atrial pre ssure of 5 mmHg. There is no pericardial effusion. CONCLUSIONS -------- 1. Sinus rhythm. 2. This was a technically good study. 3. The left ventricular size is normal. 4. Left ventricular wall thickness is normal. 5. Overall left ventricular systolic function is normal with, an EF between 55 - 60 %. 6. Normal LA size by volume 22+/-6 ml/m2. 7. The aortic valve is trileaflet, and appears structurally normal. No aortic stenosis or regurgitati on. 8. The mitral valve leaflets are mildly thickened. 9. There is trace to mild mitral regurgitation. 10. Trace tricuspid regurgitation present. 11. Right ventricular systolic pressure is normal at < 35 mmHg. 12. There is no evidence of pulmonary hypertension. 13. Trace/mild (physiologic) pulmonic regurgitation. 14. The aortic root size is normal. 15. There is no pericardial effusion. GRAVITY METER OPERATOR: Wilner Rodriguez RDCS
[2018-12-24] MEDS: IBUPROFEN 600 MG TAB PO SCH (22:23)
[2018-12-25 06:10] LABS: HCT 30.6 % (34.0-46.0); HGB 9.8 gm/dL (11.4-16.0); MCH 29.8 pg (25.0-35.0); MCHC 32.1 g/dL (31.0-37.0); MCV 92.7 fL (80.0-100.0); Mean Platelet Volume 6.8; Platelet Count 196 k/uL (150-450); RDW 13.8 % (11.5-15.5); WBC 3.9 k/uL (4.0-11.0)
[2018-12-25 06:27] LABS: Anion Gap 7 mmol/L; Blood Urea Nitrogen 6 mg/dL (7-17); Calcium 8.9 mg/dL (8.4-10.2); Carbon Dioxide 26 mmol/L (22-30); Chloride 110 mmol/L (98-107); Cholesterol 112 mg/dL (<200); Glucose 99 mg/dL (74-99); HDL Cholesterol 21 mg/dL (40-60); LDL Cholesterol,Calculated 76 mg/dL (0-99); Potassium 4.1 mmol/L (3.5-5.1); Sodium 143 mmol/L (137-145); Triglycerides 74 mg/dL (<150)
[2018-12-25] MEDS: SODIUM CHLORIDE 0.9% 1,000 ML IV SCH ×3 (07:14→21:01)
--- NOTE | 2018-12-25 07:20 | P.PN ---
Subjective Progress Note Date: 12/25/18 Principal diagnosis: Abnormal cardiac enzymes This is a pleasant 1-year-old female patient with no previous medical history who was admitted to the hospital with syncopal episode. The patient was in her usual state of health until yesterday when she was preparing to leave home and then she stood up and suddenly she felt weak as well as she felt dizzy and lightheaded. She sat down and after that she did have a syncopal episode witnessed right the people around her. The syncopal episode lasted for about 20 seconds and according to people around her the patient did have dilate the pupil. No symptoms of chest pain or chest discomfort. No incontinence. No seizure like activity noted. The patient does not have any past medical history and she does not take any medications for any medical problem. The past surgical history is also not significant. She states she does not smoke but apparently the urine drug screen came in positive for marijuana. She does have very significant family history of coronary artery disease with her father who at age 50 because of massive heart attack. We get involved in the care of the patient because her troponin came in to be slightly abnormal with 3 abnormal sets. The EKG showed sinus rhythm with T- wave inversion in the anteroseptal leads. The computed tomography scan of the brain did not show any acute abnormalities. The UA came in to be positive for UTI. Currently the patient is on antibiotic. The urine drug screen came in to be also positive for marijuana. On follow-up with the patient today, 12/25/2018, she did have an episode of pleuritic chest discomfort which has resolved with ibuprofen. 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 No anginal chest pain or chest discomfort. I did review the troponin trend which does not seem to be consistent with acute myocardial infarction. I would monitor the patient for additional 24 hours. Get the patient up and around. I would rather obtain a cardiac CTA probably as an outpatient to rule out any coronary anomaly more than atherosclerosis coronary arteries. Also the echocardiogram revealed normal LV function without any evidence of pericardial effusion. Objective - Vital Signs Vital signs: Vital Signs Temp 98.7 F 12/25/18 04:00 Pulse 76 12/25/18 04:00 Resp 16 12/25/18 04:00 BP 105/62 12/25/18 04:00 Pulse Ox 98 12/25/18 04:00 Intake & Output 12/24/18 12/25/18 12/25/18 18:59 06:59 18:59 Intake Total 1070 125 Output Total 500 Balance 570 125 Weight 68.2 kg Intake: Intake, IV Titration 400 Amount Sodium Chloride 0.9% 1, 400 000 ml @ 100 mls/hr IV . Q10H [facility] Rx#:[id number] Oral 670 125 Output: Urine 500 Other: Voiding Method Toilet Toilet # Voids 1 1 - Constitutional General appearance: Present: no acute distress - Respiratory Respiratory: bilateral: CTA - Cardiovascular Rhythm: regular Heart sounds: normal: S1, S2 - Labs CBC & Chem 7: 12/25/18 05:32 12/25/18 05:32 Labs: Abnormal Lab Results - Last 24 Hours (Table) 12/24/18 12/24/18 12/25/18 Range/Units 09:16 09:16 05:32 WBC (4.0-11.0) k/uL RBC (3.80-5.40) m/uL Hgb (11.4-16.0) gm/dL Hct (34.0-46.0) % ESR 54 H (0-20) mm/hr Chloride 110 H (98-107) mmol/L BUN 6 L (7-17) mg/dL Creatinine 0.46 L (0.52-1.04) mg/dL Troponin I 0.406 H* (0.000-0.034) ng/mL HDL Cholesterol 21 L (40-60) mg/dL 12/25/18 Range/Units 05:32 WBC 3.9 L (4.0-11.0) k/uL RBC 3.30 L (3.80-5.40) m/uL Hgb 9.8 L (11.4-16.0) gm/dL Hct 30.6 L (34.0-46.0) % ESR (0-20) mm/hr Chloride (98-107) mmol/L BUN (7-17) mg/dL Creatinine (0.52-1.04) mg/dL Troponin I (0.000-0.034) ng/mL HDL Cholesterol (40-60) mg/dL Microbiology - Last 24 Hours (Table) 12/23/18 22:40 Urine Culture - Preliminary Urine,Voided Assessment and Plan Assessment: Assessment #1 syncopal episode of unknown etiology at this point #2 mildly abnormal cardiac enzymes Plan #1 the cardiac enzymes trend does not consistent with acute myocardial injury #2 the abnormal enzymes could be related to kaley/myocarditis #3 continue the aspirin for now #4 CTA of the coronary arteries to rule out any coronary anomaly #5 recommended keeping the patient for additional 24 hours
[2018-12-25] MEDS: IBUPROFEN 600 MG TAB PO SCH ×4 (08:10→21:12)
[2018-12-25] MEDS: ASPIRIN 325 MG TAB PO SCH (08:11)
--- NOTE | 2018-12-25 12:14 | P.PN ---
Subjective 18-year-old admitted for urinary tract infection I am awaiting urine cultures. Constitutional: Denied any fatigue denied any fever. Cardio vascular: denied any chest pain, palpitations Gastrointestinal denied any nausea vomiting Pulmonary: Denied any shortness of breath cough Neurologic denied any new focal deficits All inpatient medications were reviewed and appropriate changes in these medications as dictated in the interval history and assessment and plan. Objective - Vital Signs Vital signs: Vital Signs Temp 97.3 F L 12/25/18 07:55 Pulse 72 12/25/18 07:55 Resp 16 12/25/18 07:55 BP 112/71 12/25/18 07:55 Pulse Ox 98 12/25/18 07:55 Intake & Output 12/24/18 12/25/18 12/25/18 18:59 06:59 18:59 Intake Total 1070 125 360 Output Total 500 Balance 570 125 360 Weight 68.2 kg Intake: Intake, IV Titration 400 Amount Sodium Chloride 0.9% 1, 400 000 ml @ 100 mls/hr IV . Q10H [facility] Rx#:[id number] Oral 670 125 360 Output: Urine 500 Other: Voiding Method Toilet Toilet # Voids 1 1 - Exam PHYSICAL EXAMINATION: GENERAL: The patient is alert and oriented x3, not in any acute distress. Well developed, well nourished. HEENT: Pupils are round and equally reacting to light. EOMI. No scleral icterus. No conjunctival pallor. Normocephalic, atraumatic. No pharyngeal erythema. No thyromegaly. CARDIOVASCULAR: S1 and S2 present. No murmurs, rubs, or gallops. PULMONARY: Chest is clear to auscultation, no wheezing or crackles. ABDOMEN: Soft, nontender, nondistended, normoactive bowel sounds. No palpable organomegaly. MUSCULOSKELETAL: No joint swelling or deformity. EXTREMITIES: No cyanosis, clubbing, or pedal edema. NEUROLOGICAL: Gross neurological examination did not reveal any focal deficits. SKIN: No rashes. - Labs CBC & Chem 7: 12/25/18 05:32 12/25/18 05:32 Labs: Abnormal Lab Results - Last 24 Hours (Table) 12/24/18 12/25/18 12/25/18 Range/Units 09:16 05:32 05:32 WBC 3.9 L (4.0-11.0) k/uL RBC 3.30 L (3.80-5.40) m/uL Hgb 9.8 L (11.4-16.0) gm/dL Hct 30.6 L (34.0-46.0) % ESR 54 H (0-20) mm/hr Chloride 110 H (98-107) mmol/L BUN 6 L (7-17) mg/dL Creatinine 0.46 L (0.52-1.04) mg/dL HDL Cholesterol 21 L (40-60) mg/dL Microbiology - Last 24 Hours (Table) 12/23/18 22:40 Urine Culture - Preliminary Urine,Voided Assessment and Plan Plan: -Sepsis secondary to urinary tract infection for which patient on Rocephin which will be continued awaiting urine cultures -Syncope probably due to UTI and the hypotension related to UTI patient will be started on IV fluids and will be continued on IV fluids - Hyperkalemia: Potassium was supplemented -Minimally elevated troponin secondary to sepsis and elevated ESR secondary to sepsis. Cardiology evaluated the patient because of minimally elevated troponins -Pleuritic chest pain Musko skeletal in nature PE was ruled out.
[2018-12-26] MEDS: SODIUM CHLORIDE 0.9% 1,000 ML IV SCH (00:27)
[2018-12-26 07:26] LABS: HCT 30.2 % (34.0-46.0); MCH 30.5 pg (25.0-35.0); MCV 92.5 fL (80.0-100.0); Mean Platelet Volume 6.8; Platelet Count 202 k/uL (150-450); RBC 3.27 m/uL (3.80-5.40); RDW 13.8 % (11.5-15.5); WBC 3.1 k/uL (4.0-11.0)
[2018-12-26 07:40] LABS: Anion Gap 4 mmol/L; Blood Urea Nitrogen 4 mg/dL (7-17); Calcium 8.9 mg/dL (8.4-10.2); Carbon Dioxide 26 mmol/L (22-30); Chloride 110 mmol/L (98-107); Glucose 93 mg/dL (74-99); Potassium 3.9 mmol/L (3.5-5.1); Sodium 140 mmol/L (137-145)
--- NOTE | 2018-12-26 08:11 | P.PN ---
Subjective Progress Note Date: 12/26/18 Principal diagnosis: Abnormal cardiac enzymes This is a pleasant 1-year-old female patient with no previous medical history who was admitted to the hospital with syncopal episode. The patient was in her usual state of health until yesterday when she was preparing to leave home and then she stood up and suddenly she felt weak as well as she felt dizzy and lightheaded. She sat down and after that she did have a syncopal episode witnessed right the people around her. The syncopal episode lasted for about 20 seconds and according to people around her the patient did have dilate the pupil. No symptoms of chest pain or chest discomfort. No incontinence. No seizure like activity noted. The patient does not have any past medical history and she does not take any medications for any medical problem. The past surgical history is also not significant. She states she does not smoke but apparently the urine drug screen came in positive for marijuana. She does have very significant family history of coronary artery disease with her father who at age 50 because of massive heart attack. We get involved in the care of the patient because her troponin came in to be slightly abnormal with 3 abnormal sets. The EKG showed sinus rhythm with T- wave inversion in the anteroseptal leads. The computed tomography scan of the brain did not show any acute abnormalities. The UA came in to be positive for UTI. Currently the patient is on antibiotic. The urine drug screen came in to be also positive for marijuana. On follow-up with the patient today, December 262018, the patient remains asymptomatic from the cardiac risk standpoint overview. No chest pain or chest discomfort. No shortness of breath. The echo revealed normal LV function. Overall the troponin trend does not reflect acute myocardial injury. Having said that, the patient can be discharged home and I will follow-up with the patient in the office as an outpatient or possible coronary CTA to be done Objective - Vital Signs Vital signs: Vital Signs Temp 98.7 F 12/26/18 03:27 Pulse 58 L 12/26/18 03:27 Resp 16 12/26/18 03:27 BP 111/77 12/26/18 03:27 Pulse Ox 99 12/26/18 03:27 Intake & Output 12/25/18 12/26/18 12/26/18 18:59 06:59 18:59 Intake Total 720 900 Balance 720 900 Weight 69.5 kg Intake: IV 900 [id number] 1,000 mg In 900 Sodium Chloride 0.9% 50 ml @ 100 mls/hr IVPB HS [facility] Rx#:[id number] Oral 720 Other: Voiding Method Toilet Toilet # Voids 3 - Constitutional General appearance: Present: no acute distress - Respiratory Respiratory: bilateral: CTA - Cardiovascular Rhythm: regular Heart sounds: normal: S1, S2 - Labs CBC & Chem 7: 12/26/18 06:23 12/26/18 06:23 Labs: Abnormal Lab Results - Last 24 Hours (Table) 12/26/18 12/26/18 Range/Units 06:23 06:23 WBC 3.1 L (4.0-11.0) k/uL RBC 3.27 L (3.80-5.40) m/uL Hgb 10.0 L (11.4-16.0) gm/dL Hct 30.2 L (34.0-46.0) % Chloride 110 H (98-107) mmol/L BUN 4 L (7-17) mg/dL Creatinine 0.44 L (0.52-1.04) mg/dL Microbiology - Last 24 Hours (Table) 12/23/18 22:40 Urine Culture - Preliminary Urine,Voided Gram Neg Bacilli Assessment and Plan Assessment: Assessment #1 syncopal episode of unknown etiology at this point #2 mildly abnormal cardiac enzymes Plan #1 the cardiac enzymes trend does not consistent with acute myocardial injury #2 the abnormal enzymes could be related to kaley/myocarditis #3 continue the aspirin for now #4 CTA of the coronary arteries to rule out any coronary anomaly #5 recommended DC the patient later on today
[2018-12-26] MEDS: ASPIRIN 325 MG TAB PO SCH (08:20)
[2018-12-26] MEDS: IBUPROFEN 600 MG TAB PO SCH (08:20)
[2018-12-26 11:06] VITALS: BP 127/76; PULSE 79; TEMP 98.4
== END 2018-12-26 11:50 | disposition home or self-care (01) | DRG 872 ==
LOC: EC 21:52 → 3SCARD 12-24 00:22
PROVIDERS: ADMIT Hospitalist; ATTEND Hospitalist
DX: A41.9 Sepsis, unspecified organism (principal); N39.0 Urinary tract infection, site not specified; I95.9 Hypotension, unspecified; E87.5 Hyperkalemia; R07.81 Pleurodynia; W18.39XA Other fall on same level, initial encounter; Z82.49 Family history of ischemic heart disease and other diseases of the circulatory system; Y92.009 Unspecified place in unspecified non-institutional (private) residence as the place of occurrence of the external cause
CPT/HCPCS: 36415; 70450; 71046; 71275; 80048; 80053; 80061; 80306; 81001; 82550; 82553; 83735; 84132; 84484; 85025; 85027; 85379; 85610; 85652; 85730; 87077; 87086; 87186; 93005; 93306; 96361; 96365; 96366; 99285

== ENCOUNTER 2018-12-26 23:58 | Emergency (ER) | payer BC ==
[2018-12-27] MEDS ORDERED: SODIUM CHLORIDE 0.9% 1,000 ML IV STA (01:49)
[2018-12-27] MEDS ORDERED: KETOROLAC 30 MG/ML 1 ML VIAL IVP STA (01:52)
[2018-12-27] MEDS ORDERED: ONDANSETRON 4 MG/2 ML VIAL IVP STA (01:52)
--- NOTE | 2018-12-27 02:17 | ED ---
Nausea/Vomiting/Diarrhea HPI - General Chief complaint: Nausea/Vomiting/Diarrhea Stated complaint: vomiting,syncope Time Seen by Provider: 12/27/18 00:34 Source: patient, family Mode of arrival: wheelchair Limitations: no limitations - History of Present Illness Initial comments: This patient is a 18-year-old woman who presents to be evaluated for vomiting and diarrhea as well as some associated right-sided abdominal pain. The patient states she had been admitted in the hospital for suspected sepsis and went home on this afternoon. Shortly after she was home she started developing diarrhea. She states she had greater than 4 episodes of watery bowel movement, and then she also was having nausea and vomiting. She vomited over 3 times. There was no blood. She also describes having some right-sided abdominal pain that has been going on. MD complaint: nausea, vomiting, diarrhea, abdominal pain -: hour(s) Description of Vomiting: watery Description of Diarrhea: water Associated Abdominal Pain: Yes Location: RUQ Severity: moderate Quality: stabbing, aching Consistency: constant Improves with: none Worsens with: none - Related Data Previous Rx's Medication Instructions Recorded Ibuprofen [Motrin] 600 mg PO Q6HR PRN #30 tab 04/02/18 Aspirin 81 mg PO DAILY #30 chewable 12/26/18 Ciprofloxacin HCl [Cipro] 500 mg PO Q12H 7 Days #14 tab 12/26/18 Ondansetron Odt [Zofran ODT] 4 mg PO Q8HR PRN #10 tab 12/27/18 Allergies Allergy/AdvReac Type Severity Reaction Status Date / Time No Known Allergies Allergy Verified 12/23/18 22:23 Review of Systems ROS Statement: Those systems with pertinent positive or pertinent negative responses have been documented in the HPI. ROS Other: All systems not noted in ROS Statement are negative. Constitutional: Reports: chills. Denies: fever Respiratory: Denies: cough, dyspnea Cardiovascular: Denies: chest pain, palpitations, edema, syncope Gastrointestinal: Reports: abdominal pain, nausea, vomiting, diarrhea. Denies: hematemesis, melena, hematochezia Genitourinary: Denies: dysuria, hematuria, abnormal menses Musculoskeletal: Denies: back pain Skin: Denies: rash Neurological: Denies: headache, weakness, numbness Past Medical History Past Medical History: No Reported History Additional Past Medical History / Comment(s): endometriosis History of Any Multi-Drug Resistant Organisms: None Reported Past Surgical History: No Surgical Hx Reported Additional Past Surgical History / Comment(s): laprascopic ovarian cyst removal Past Anesthesia/Blood Transfusion Reactions: No Reported Reaction Past Psychological History: No Psychological Hx Reported Smoking Status: Never smoker - Past Family History Mother Family Medical History: No Reported History Father Family Medical History: Myocardial Infarction ([place]) Additional Family Medical History / Comment(s): father in june from a heart attack General Exam Limitations: no limitations General appearance: alert, in no apparent distress Head exam: Present: atraumatic, normocephalic Eye exam: Present: normal appearance. Absent: scleral icterus, conjunctival injection ENT exam: Present: normal oropharynx Respiratory exam: Present: normal lung sounds bilaterally. Absent: respiratory distress, wheezes, rales, rhonchi, stridor Cardiovascular Exam: Present: regular rate, normal rhythm, normal heart sounds. Absent: systolic murmur, diastolic murmur, rubs, gallop GI/Abdominal exam: Present: tenderness. Absent: distended, guarding, rebound, rigid, mass, pulsatile mass, hernia Extremities exam: Present: normal inspection, normal capillary refill. Absent: pedal edema, calf tenderness Back exam: Present: normal inspection. Absent: CVA tenderness (R), CVA tenderness (L) Neurological exam: Present: alert Skin exam: Present: warm, dry, intact, normal color. Absent: rash Course Vital Signs 12/27/18 12/27/18 12/27/18 00:11 04:08 05:26 Temperature 97.7 F 97.8 F Pulse Rate 80 72 68 Respiratory 16 18 16 Rate Blood Pressure 121/81 124/64 122/75 O2 Sat by Pulse 98 98 100 Oximetry Medical Decision Making - Lab Data Result diagrams: 12/27/18 02:10 12/27/18 02:10 Lab Results 12/27/18 12/27/18 12/27/18 Range/Units 02:10 02:10 02:10 WBC 5.5 (4.0-11.0) k/uL RBC 3.73 L (3.80-5.40) m/uL Hgb 10.9 L (11.4-16.0) gm/dL Hct 33.5 L (34.0-46.0) % MCV 89.9 (80.0-100.0) fL MCH 29.1 (25.0-35.0) pg MCHC 32.4 (31.0-37.0) g/dL RDW 13.5 (11.5-15.5) % Plt Count 258 (150-450) k/uL Neutrophils % 75 % Lymphocytes % 17 % Monocytes % 7 % Eosinophils % 1 % Basophils % 0 % Neutrophils # 4.1 (1.3-7.7) k/uL Lymphocytes # 0.9 L (1.0-4.8) k/uL Monocytes # 0.4 (0-1.0) k/uL Eosinophils # 0.0 (0-0.7) k/uL Basophils # 0.0 (0-0.2) k/uL Sodium 141 (137-145) mmol/L Potassium 3.6 (3.5-5.1) mmol/L Chloride 107 (98-107) mmol/L Carbon Dioxide 24 (22-30) mmol/L Anion Gap 10 mmol/L BUN 6 L (7-17) mg/dL Creatinine 0.41 L (0.52-1.04) mg/dL Est GFR (CKD-EPI)AfAm >90 (>60 ml/min/1.73 sqM) Est GFR (CKD-EPI)NonAf >90 (>60 ml/min/1.73 sqM) Glucose 112 H (74-99) mg/dL Plasma Lactic Acid Joseph 1.3 (0.7-2.0) mmol/L Calcium 9.5 (8.4-10.2) mg/dL Total Bilirubin 0.4 (0.2-1.3) mg/dL AST 15 (14-36) U/L ALT 39 (9-52) U/L Alkaline Phosphatase 52 (38-126) U/L Total Protein 6.9 (6.3-8.2) g/dL Albumin 4.0 (3.5-5.0) g/dL Urine Color Urine Appearance (Clear) Urine pH (5.0-8.0) Ur Specific [place] (1.001-1.035) Urine Protein (Negative) Urine Glucose (UA) (Negative) Urine Ketones (Negative) Urine Blood (Negative) Urine Nitrite (Negative) Urine Bilirubin (Negative) Urine Urobilinogen (<2.0) mg/dL Ur Leukocyte Esterase (Negative) 12/27/18 Range/Units 03:31 WBC (4.0-11.0) k/uL RBC (3.80-5.40) m/uL Hgb (11.4-16.0) gm/dL Hct (34.0-46.0) % MCV (80.0-100.0) fL MCH (25.0-35.0) pg MCHC (31.0-37.0) g/dL RDW (11.5-15.5) % Plt Count (150-450) k/uL Neutrophils % % Lymphocytes % % Monocytes % % Eosinophils % % Basophils % % Neutrophils # (1.3-7.7) k/uL Lymphocytes # (1.0-4.8) k/uL Monocytes # (0-1.0) k/uL Eosinophils # (0-0.7) k/uL Basophils # (0-0.2) k/uL Sodium (137-145) mmol/L Potassium (3.5-5.1) mmol/L Chloride (98-107) mmol/L Carbon Dioxide (22-30) mmol/L Anion Gap mmol/L BUN (7-17) mg/dL Creatinine (0.52-1.04) mg/dL Est GFR (CKD-EPI)AfAm (>60 ml/min/1.73 sqM) Est GFR (CKD-EPI)NonAf (>60 ml/min/1.73 sqM) Glucose (74-99) mg/dL Plasma Lactic Acid Joseph (0.7-2.0) mmol/L Calcium (8.4-10.2) mg/dL Total Bilirubin (0.2-1.3) mg/dL AST (14-36) U/L ALT (9-52) U/L Alkaline Phosphatase (38-126) U/L Total Protein (6.3-8.2) g/dL Albumin (3.5-5.0) g/dL Urine Color Yellow Urine Appearance Clear (Clear) Urine pH 6.5 (5.0-8.0) Ur Specific [place] 1.012 (1.001-1.035) Urine Protein Trace H (Negative) Urine Glucose (UA) Negative (Negative) Urine Ketones 2+ H (Negative) Urine Blood Negative (Negative) Urine Nitrite Negative (Negative) Urine Bilirubin Negative (Negative) Urine Urobilinogen <2.0 (<2.0) mg/dL Ur Leukocyte Esterase Negative (Negative) Disposition Clinical Impression: Gastroenteritis Disposition: HOME SELF-CARE Condition: Good Instructions (If sedation given, give patient instructions): Acute Nausea and Vomiting (ED), Acute Diarrhea (ED) Prescriptions: Ondansetron Odt [Zofran ODT] 4 mg PO Q8HR PRN #10 tab PRN Reason: Nausea Is patient prescribed a controlled substance at d/c from ED?: No Referrals: Cristina Winter MD [Primary Care Provider] - 1-2 days
[2018-12-27 02:23] LABS: Basophils % (A) 0 %; Eosinophils % (A) 1 %; HCT 33.5 % (34.0-46.0); HGB 10.9 gm/dL (11.4-16.0); Lymphocytes # (A) 0.9 k/uL (1.0-4.8); Lymphocytes % (A) 17 %; MCH 29.1 pg (25.0-35.0); MCHC 32.4 g/dL (31.0-37.0); MCV 89.9 fL (80.0-100.0); Mean Platelet Volume 7.3; Monocytes # (A) 0.4 k/uL (0-1.0); Monocytes % (A) 7 %; Neutrophils # (A) 4.1 k/uL (1.3-7.7); Neutrophils % (A) 75 %; Platelet Count 258 k/uL (150-450); RBC 3.73 m/uL (3.80-5.40); RDW 13.5 % (11.5-15.5); WBC 5.5 k/uL (4.0-11.0)
[2018-12-27 02:37] LABS: ALT 39 U/L (9-52); AST 15 U/L (14-36); Alkaline Phosphatase 52 U/L (38-126); Anion Gap 10 mmol/L; Blood Urea Nitrogen 6 mg/dL (7-17); Calcium 9.5 mg/dL (8.4-10.2); Carbon Dioxide 24 mmol/L (22-30); Chloride 107 mmol/L (98-107); Glucose 112 mg/dL (74-99); Potassium 3.6 mmol/L (3.5-5.1); Sodium 141 mmol/L (137-145); Total Bilirubin 0.4 mg/dL (0.2-1.3); Total Protein 6.9 g/dL (6.3-8.2)
[2018-12-27 03:44] LABS: Appearance,Urine Clear (Clear); Bilirubin,Urine Negative (Negative); Blood,Urine Negative (Negative); Color,Urine Yellow; Glucose,Urine (UA) Negative (Negative); Ketones,Urine 2+ (Negative); Leukocyte Esterase,Urine Negative (Negative); Nitrite,Urine Negative (Negative); PH, Urine 6.5 (5.0-8.0); Protein,Urine Trace (Negative); Specific Gravity,Urine 1.012 (1.001-1.035); Urobilinogen,Urine <2.0 mg/dL (<2.0)
[2018-12-27] MEDS ORDERED: METOCLOPRAMIDE 5 MG/ML 2 ML VIAL IVP STA (05:39)
[2018-12-27 05:56] VITALS: BP 119/72; PULSE 77; RESP 18; TEMP 98
== END 2018-12-27 06:13 | disposition home or self-care (01) ==
LOC: EC 23:58
DX: K52.9 Noninfective gastroenteritis and colitis, unspecified (principal)
CPT/HCPCS: 36415; 80053; 83605; 85025; 81003; 99284; 96374; 96375 ×2; 96361 ×3; J2765; J2405; J1885

== ENCOUNTER 2019-08-13 05:29 | Emergency (ER) | payer BC ==
[2019-08-13] MEDS ORDERED: SODIUM CHLORIDE 0.9% 1,000 ML IV ONE (06:02)
[2019-08-13] MEDS ORDERED: ONDANSETRON 4 MG/2 ML VIAL IVP STA (06:02)
--- NOTE | 2019-08-13 06:07 | ED ---
Nausea/Vomiting/Diarrhea HPI - General Chief complaint: Nausea/Vomiting/Diarrhea Stated complaint: Nausea Time Seen by Provider: 08/13/19 05:48 Source: patient Mode of arrival: ambulatory Limitations: no limitations - History of Present Illness Initial comments: This patient is 18-year-old woman who presents with complaints of vomiting and diarrhea that started a number of hours ago this morning. The patient states that she had been in her usual state of health until yesterday afternoon when she noticed that she was feeling more tired and worn out than his usual. She states that over the course of tonight she did have a number of episodes of [place] and vomiting. She states she had similar episode at the end of November and was found to be septic due to urinary tract infection. Patient has not noted urinary symptoms, but she has had 3 days of a mild nonproductive cough usually in the morning after she wakes up. MD complaint: nausea, vomiting -: hour(s) Description of Vomiting: food contents Associated Abdominal Pain: No Improves with: none Worsens with: none Associated Symptoms: malaise - Related Data Previous Rx's Medication Instructions Recorded Ibuprofen [Motrin] 600 mg PO Q6HR PRN #30 tab 04/02/18 Aspirin 81 mg PO DAILY #30 chewable 12/26/18 Ciprofloxacin HCl [Cipro] 500 mg PO Q12H 7 Days #14 tab 12/26/18 Ondansetron Odt [Zofran ODT] 4 mg PO Q8HR PRN #10 tab 12/27/18 Sulfamethox-Tmp 800-160Mg [Bactrim 1 each PO Q12HR #6 tab 08/13/19 Ds] Allergies Allergy/AdvReac Type Severity Reaction Status Date / Time No Known Allergies Allergy Verified 12/23/18 22:23 Review of Systems ROS Statement: Those systems with pertinent positive or pertinent negative responses have been documented in the HPI. ROS Other: All systems not noted in ROS Statement are negative. Constitutional: Denies: fever, chills, weakness Respiratory: Reports: as per HPI, cough. Denies: dyspnea, wheezes Cardiovascular: Denies: chest pain, edema, syncope Gastrointestinal: Reports: nausea, vomiting. Denies: abdominal pain, diarrhea, constipation, hematemesis, melena, hematochezia Genitourinary: Denies: dysuria, hematuria Musculoskeletal: Denies: back pain Skin: Denies: rash Neurological: Denies: headache, weakness Past Medical History Past Medical History: No Reported History Additional Past Medical History / Comment(s): endometriosis History of Any Multi-Drug Resistant Organisms: None Reported Past Surgical History: No Surgical Hx Reported Additional Past Surgical History / Comment(s): laprascopic ovarian cyst removal Past Anesthesia/Blood Transfusion Reactions: No Reported Reaction Past Psychological History: No Psychological Hx Reported Smoking Status: Never smoker Past Alcohol Use History: None Reported Past Drug Use History: None Reported - Past Family History Mother Family Medical History: No Reported History Father Family Medical History: Myocardial Infarction ([place]) Additional Family Medical History / Comment(s): father in june from a heart attack General Exam Limitations: no limitations General appearance: alert, in no apparent distress Head exam: Present: atraumatic, normocephalic Eye exam: Present: normal appearance. Absent: scleral icterus, conjunctival injection ENT exam: Present: mucous membranes dry Neck exam: Present: normal inspection Respiratory exam: Present: normal lung sounds bilaterally. Absent: respiratory distress, wheezes, rales, rhonchi, stridor Cardiovascular Exam: Present: regular rate, normal rhythm, normal heart sounds. Absent: systolic murmur, diastolic murmur, rubs, gallop GI/Abdominal exam: Present: soft. Absent: distended, tenderness, guarding, rebound, rigid, mass Extremities exam: Present: normal inspection, normal capillary refill. Absent: pedal edema, calf tenderness Back exam: Present: normal inspection. Absent: CVA tenderness (R), CVA tenderness (L) Neurological exam: Present: alert Skin exam: Present: warm, dry, intact, normal color. Absent: rash Course Vital Signs 08/13/19 08/13/19 05:30 07:00 Temperature 97.6 F 98.2 F Pulse Rate 78 82 Respiratory 18 18 Rate Blood Pressure 127/84 121/78 O2 Sat by Pulse 100 100 Oximetry Medical Decision Making - Lab Data Result diagrams: 08/13/19 06:15 08/13/19 06:15 Lab Results 08/13/19 08/13/19 08/13/19 Range/Units 06:15 06:15 06:15 WBC 7.1 (4.0-11.0) k/uL RBC 4.10 (3.80-5.40) m/uL Hgb 12.1 (11.4-16.0) gm/dL Hct 36.6 (34.0-46.0) % MCV 89.2 (80.0-100.0) fL MCH 29.4 (25.0-35.0) pg MCHC 33.0 (31.0-37.0) g/dL RDW 14.2 (11.5-15.5) % Plt Count 200 (150-450) k/uL Neutrophils % 80 % Lymphocytes % 11 % Monocytes % 7 % Eosinophils % 1 % Basophils % 0 % Neutrophils # 5.7 (1.3-7.7) k/uL Lymphocytes # 0.8 L (1.0-4.8) k/uL Monocytes # 0.5 (0-1.0) k/uL Eosinophils # 0.1 (0-0.7) k/uL Basophils # 0.0 (0-0.2) k/uL Sodium 143 (137-145) mmol/L Potassium 3.6 (3.5-5.1) mmol/L Chloride 108 H (98-107) mmol/L Carbon Dioxide 26 (22-30) mmol/L Anion Gap 9 mmol/L BUN 10 (7-17) mg/dL Creatinine 0.68 (0.52-1.04) mg/dL Est GFR (CKD-EPI)AfAm >90 (>60 ml/min/1.73 sqM) Est GFR (CKD-EPI)NonAf >90 (>60 ml/min/1.73 sqM) Glucose 103 H (74-99) mg/dL Calcium 9.7 (8.4-10.2) mg/dL Urine Color Urine Appearance (Clear) Urine pH (5.0-8.0) Ur Specific [place] (1.001-1.035) Urine Protein (Negative) Urine Glucose (UA) (Negative) Urine Ketones (Negative) Urine Blood (Negative) Urine Nitrite (Negative) Urine Bilirubin (Negative) Urine Urobilinogen (<2.0) mg/dL Ur Leukocyte Esterase (Negative) Urine RBC (0-5) /hpf Urine WBC (0-5) /hpf Ur Squamous Epith Cells (0-4) /hpf Urine Bacteria (None) /hpf Hyaline Casts (0-2) /lpf Urine Mucus (None) /hpf Urine HCG, Qual Not Detected (Not Detectd) 08/13/19 Range/Units 06:15 WBC (4.0-11.0) k/uL RBC (3.80-5.40) m/uL Hgb (11.4-16.0) gm/dL Hct (34.0-46.0) % MCV (80.0-100.0) fL MCH (25.0-35.0) pg MCHC (31.0-37.0) g/dL RDW (11.5-15.5) % Plt Count (150-450) k/uL Neutrophils % % Lymphocytes % % Monocytes % % Eosinophils % % Basophils % % Neutrophils # (1.3-7.7) k/uL Lymphocytes # (1.0-4.8) k/uL Monocytes # (0-1.0) k/uL Eosinophils # (0-0.7) k/uL Basophils # (0-0.2) k/uL Sodium (137-145) mmol/L Potassium (3.5-5.1) mmol/L Chloride (98-107) mmol/L Carbon Dioxide (22-30) mmol/L Anion Gap mmol/L BUN (7-17) mg/dL Creatinine (0.52-1.04) mg/dL Est GFR (CKD-EPI)AfAm (>60 ml/min/1.73 sqM) Est GFR (CKD-EPI)NonAf (>60 ml/min/1.73 sqM) Glucose (74-99) mg/dL Calcium (8.4-10.2) mg/dL Urine Color Light Yellow Urine Appearance Cloudy H (Clear) Urine pH 6.0 (5.0-8.0) Ur Specific [place] 1.011 (1.001-1.035) Urine Protein Trace H (Negative) Urine Glucose (UA) Negative (Negative) Urine Ketones Negative (Negative) Urine Blood Negative (Negative) Urine Nitrite Negative (Negative) Urine Bilirubin Negative (Negative) Urine Urobilinogen <2.0 (<2.0) mg/dL Ur Leukocyte Esterase Moderate H (Negative) Urine RBC 2 (0-5) /hpf Urine WBC 16 H (0-5) /hpf Ur Squamous Epith Cells 20 H (0-4) /hpf Urine Bacteria Rare H (None) /hpf Hyaline Casts 6 H (0-2) /lpf Urine Mucus Rare H (None) /hpf Urine HCG, Qual (Not Detectd) Disposition Clinical Impression: Urinary tract infection Disposition: HOME SELF-CARE Condition: Good Instructions (If sedation given, give patient instructions): Acute Nausea and Vomiting (ED), Urinary Tract Infection in Women (DC) Prescriptions: Sulfamethox-Tmp 800-160Mg [Bactrim Ds] 1 each PO Q12HR #6 tab Is patient prescribed a controlled substance at d/c from ED?: No Referrals: Cristina Winter MD [Primary Care Provider] - 1-2 days
[2019-08-13 06:25] LABS: Basophils % (A) 0 %; Eosinophils # (A) 0.1 k/uL (0-0.7); Eosinophils % (A) 1 %; HCT 36.6 % (34.0-46.0); HGB 12.1 gm/dL (11.4-16.0); Lymphocytes # (A) 0.8 k/uL (1.0-4.8); Lymphocytes % (A) 11 %; MCH 29.4 pg (25.0-35.0); MCV 89.2 fL (80.0-100.0); Monocytes # (A) 0.5 k/uL (0-1.0); Monocytes % (A) 7 %; Neutrophils # (A) 5.7 k/uL (1.3-7.7); Neutrophils % (A) 80 %; Platelet Count 200 k/uL (150-450); RDW 14.2 % (11.5-15.5); WBC 7.1 k/uL (4.0-11.0)
[2019-08-13 06:39] LABS: Appearance,Urine Cloudy (Clear); Bacteria,Urine Rare /hpf; Bilirubin,Urine Negative (Negative); Blood,Urine Negative (Negative); Color,Urine Light Yellow; Glucose,Urine (UA) Negative (Negative); Hyaline Casts,Urine 6 /lpf (0-2); Ketones,Urine Negative (Negative); Leukocyte Esterase,Urine Moderate (Negative); Mucus,Urine Rare /hpf; Nitrite,Urine Negative (Negative); Protein,Urine Trace (Negative); RBC,Urine 2 /hpf (0-5); Specific Gravity,Urine 1.011 (1.001-1.035); Squamous Epithelial Cell,Urine 20 /hpf (0-4); Urobilinogen,Urine <2.0 mg/dL (<2.0); WBC,Urine 16 /hpf (0-5)
[2019-08-13 06:43] LABS: African American GFR (CKD) >90 (>60 ml/min/1.73 sqM); Anion Gap 9 mmol/L; Blood Urea Nitrogen 10 mg/dL (7-17); Calcium 9.7 mg/dL (8.4-10.2); Carbon Dioxide 26 mmol/L (22-30); Chloride 108 mmol/L (98-107); Glucose 103 mg/dL (74-99); Potassium 3.6 mmol/L (3.5-5.1); Sodium 143 mmol/L (137-145)
[2019-08-13 07:01] VITALS: BP 121/78; TEMP 98.2
[2019-08-13] MEDS ORDERED: SULFAMETHOX-TMP 800-160MG 1 EACH TAB PO STA (07:06)
[2019-08-13] MEDS: SULFAMETHOX-TMP 800-160MG 1 EACH TAB PO STA ×2 (07:19→07:20)
[2019-08-13 07:22] VITALS: PULSE 69; RESP 16
== END 2019-08-13 07:20 | disposition home or self-care (01) ==
LOC: EC 05:29
DX: N39.0 Urinary tract infection, site not specified (principal); R11.2 Nausea with vomiting, unspecified; R19.7 Diarrhea, unspecified; R53.81 Other malaise
CPT/HCPCS: 36415; 80048; 85025; 81001; 81025; 99284; 96374; 96361; J2405

== ENCOUNTER 2020-01-18 17:36 | Emergency (ER) | payer BC ==
[2020-01-18 17:43] VITALS: BP 156/91; PULSE 86; RESP 18; TEMP 100.8
--- NOTE | 2020-01-18 18:14 | XR ---
EXAMINATION TYPE: XR chest 2V DATE OF EXAM: 01/18/2020 COMPARISON: 12/23/2018 HISTORY: Dizziness. Fever cough. TECHNIQUE: FINDINGS: Heart and mediastinum are normal. Lungs are clear. Diaphragm is normal. Bony thorax appears normal. IMPRESSION: Normal chest. No change.
--- NOTE | 2020-01-18 18:25 | ED ---
URI HPI - General Chief Complaint: Upper Respiratory Infection Stated Complaint: allergic reaction Time Seen by Provider: 01/18/20 17:44 Source: patient, family Mode of arrival: wheelchair Limitations: no limitations - History of Present Illness Initial Comments: Patient is a 19-year-old female presenting to the emergency Department with complaints of a cough and fever that increased today. Patient states she's had a mild cough for the past 2 days and then her symptoms increased today. Patient states she's been taking Tylenol for her fever. She did go to her PCPs office, Dr. Winter's today. Dr. Winter started patient on Tamiflu, azithromycin and an inhaler. Patient states she took one dose of the Z-Stuart and then vomited shortly after. She came in to the ER thinking she was having ALLERGIC reaction to the medicine. She states she did not have a flu swab or chest x-ray. She denies diarrhea, abdominal pain. She is complaining of overall body aches and fatigue. She has no other complaints at this time. Upon arrival to the ER, patient's temperatures 100.8, rest of vitals normal. - Related Data Previous Rx's Medication Instructions Recorded Ibuprofen [Motrin] 600 mg PO Q6HR PRN #30 tab 04/02/18 Aspirin 81 mg PO DAILY #30 chewable 12/26/18 Ciprofloxacin HCl [Cipro] 500 mg PO Q12H 7 Days #14 tab 12/26/18 Ondansetron Odt [Zofran ODT] 4 mg PO Q8HR PRN #10 tab 12/27/18 Sulfamethox-Tmp 800-160Mg [Bactrim 1 each PO Q12HR #6 tab 08/13/19 Ds] Allergies Allergy/AdvReac Type Severity Reaction Status Date / Time No Known Allergies Allergy Verified 12/23/18 22:23 Review of Systems ROS Statement: Those systems with pertinent positive or pertinent negative responses have been documented in the HPI. ROS Other: All systems not noted in ROS Statement are negative. Past Medical History Past Medical History: No Reported History Additional Past Medical History / Comment(s): endometriosis History of Any Multi-Drug Resistant Organisms: None Reported Past Surgical History: No Surgical Hx Reported Additional Past Surgical History / Comment(s): laprascopic ovarian cyst removal Past Anesthesia/Blood Transfusion Reactions: No Reported Reaction Past Psychological History: Anxiety, Depression Smoking Status: Never smoker Past Alcohol Use History: None Reported Past Drug Use History: None Reported - Past Family History Mother Family Medical History: No Reported History Father Family Medical History: Myocardial Infarction ([place]) Additional Family Medical History / Comment(s): father in june from a heart attack General Exam - General Exam Comments Initial Comments: GENERAL: Well-appearing, well-nourished and in no acute distress. HEAD: Atraumatic, normocephalic. EYES: Pupils equal round and reactive to light, extraocular movements intact, sclera anicteric, conjunctiva are normal. ENT: TMs normal, nares patent, oropharynx clear without exudates. Moist mucous membranes. NECK: Normal range of motion, supple without lymphadenopathy or JVD. LUNGS: Breath sounds clear to auscultation bilaterally and equal. No wheezes rales or rhonchi. HEART: Regular rate and rhythm without murmurs, rubs or gallops. ABDOMEN: Soft, nontender, normoactive bowel sounds. No guarding, no rebound. No masses appreciated. : Deferred EXTREMITIES: Normal range of motion, no pitting or edema. No clubbing or cyanosis. SKIN: Warm, Dry, normal turgor, no rashes or lesions noted. Limitations: no limitations Course Vital Signs 01/18/20 01/18/20 17:38 18:01 Temperature 100.8 F H Pulse Rate 86 Respiratory 18 18 Rate Blood Pressure 156/91 O2 Sat by Pulse 98 Oximetry Medical Decision Making - Medical Decision Making Patient is a 19-year-old female presenting with flulike symptoms increased today. Patient went to Dr. Gregory's office today received azithromycin, Tamiflu, and inhaler. Patient was slightly febrile upon arrival here today. Patient's exam is unremarkable. Chest x-ray shows no acute abnormalities. Patient's influenza swab is positive for influenza B. I discussed these findings with the patient. She may discontinue the azithromycin. She will continue with the Tamiflu and an inhaler. She will also continue alternating between Tylenol and Motrin for fever control. She is in agreement this plan of care. She is stable for discharge. Return parameters were discussed with the patient and she verbalized understanding. - Lab Data Lab Results 01/18/20 Range/Units 17:45 Influenza Type A RNA Not Detected (Not Detectd) Influenza Type B (PCR) Detected H (Not Detectd) Disposition Clinical Impression: Influenza Disposition: HOME SELF-CARE Condition: Stable Instructions (If sedation given, give patient instructions): Influenza (ED) Additional Instructions: Please return to the Emergency Department if symptoms worsen or any other concerns. Continue with our he prescribed Tamiflu and inhaler. Discontinue antibiotics. Continue to alternate between Tylenol and Motrin for fever control and body aches. Follow-up with PCP. Is patient prescribed a controlled substance at d/c from ED?: No Referrals: Cristina Winter MD [Primary Care Provider] - 1-2 days
== END 2020-01-18 18:30 | disposition home or self-care (01) ==
LOC: EC 17:36
DX: J10.1 Influenza due to other identified influenza virus with other respiratory manifestations (principal)
CPT/HCPCS: 71046; 87502; 99283

== ENCOUNTER 2020-10-11 16:54 | Emergency (ER) | payer BC, OTHER ==
[2020-10-11 17:09] VITALS: BP 127/79; PULSE 72; RESP 18; TEMP 97.6
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
== END 2020-10-11 19:04 | disposition home or self-care (01) ==
LOC: EC 16:54
DX: R07.89 Other chest pain (principal); Z82.49 Family history of ischemic heart disease and other diseases of the circulatory system; V47.6XXA Car passenger injured in collision with fixed or stationary object in traffic accident, initial encounter; Y92.410 Unspecified street and highway as the place of occurrence of the external cause; Y93.89 Activity, other specified
CPT/HCPCS: 71046; 71120; 99284

== ENCOUNTER 2021-12-14 17:15 | Observation (INO) | payer BC, OTHER ==
[2021-12-14 18:22] LABS: Appearance,Urine Turbid (Clear); Bacteria,Urine Occasional /hpf; Bilirubin,Urine Negative (Negative); Blood,Urine Moderate (Negative); Color,Urine Yellow; Glucose,Urine (UA) Negative (Negative); Ketones,Urine 4+ (Negative); Leukocyte Esterase,Urine Large (Negative); Mucus,Urine Many /hpf; Nitrite,Urine Positive (Negative); Protein,Urine 3+ (Negative); RBC,Urine 25 /hpf (0-5); Specific Gravity,Urine 1.017 (1.001-1.035); Squamous Epithelial Cell,Urine 11 /hpf (0-4); Urobilinogen,Urine <2.0 mg/dL (<2.0); WBC,Urine >182 /hpf (0-5)
[2021-12-14] MEDS ORDERED: SODIUM CHLORIDE 0.9% 1,000 ML IV ONE (18:59)
[2021-12-14] MEDS ORDERED: METOCLOPRAMIDE 5 MG/ML 2 ML VIAL IVP STA (18:59)
[2021-12-14] MEDS ORDERED: diphenhydrAMINE 50 MG/ML 1 ML VIAL IVP STA (18:59)
--- NOTE | 2021-12-14 18:59 | ED ---
General Adult HPI - General Chief complaint: Weakness Stated complaint: Covid exposure, 7wks preg, vomiting Source: patient Mode of arrival: ambulatory Limitations: no limitations - History of Present Illness Initial comments: 21-year-old female who is approximately 7 weeks presents emergency department for right flank pain states that she's had nausea, vomiting with i nability to hold down any foods. She also noted that her urine was dark in color. She was seen in our emergency department on the . Obstetric ultrasound was performed which demonstrated a single live intrauterine at 5 weeks 6 days. Heart rate 108. Patient denies any vaginal bleeding or cramping. She did make an appointment with Dr. Plunkett but has yet to see her in office. Eyes hematuria. No history of renal stones. Patient concerned for Covid. Patient not vaccinated. 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 ROS Other: All systems not noted in ROS Statement are negative. Past Medical History Past Medical History: No Reported History Additional Past Medical History / Comment(s): endometriosis History of Any Multi-Drug Resistant Organisms: None Reported Past Surgical History: No Surgical Hx Reported Additional Past Surgical History / Comment(s): laprascopic ovarian cyst removal Past Anesthesia/Blood Transfusion Reactions: No Reported Reaction Past Psychological History: Anxiety, Depression Smoking Status: Never smoker Past Alcohol Use History: None Reported Past Drug Use History: Marijuana - Past Family History Mother Family Medical History: No Reported History Father Family Medical History: Myocardial Infarction ([place]) Additional Family Medical History / Comment(s): father in june from a heart attack General Exam Limitations: no limitations Course Vital Signs 12/14/21 12/14/21 17:45 21:01 Temperature 100.7 F H 98.4 F Pulse Rate 117 H 88 Respiratory 20 18 Rate Blood Pressure 96/66 112/57 O2 Sat by Pulse 98 99 Oximetry EKG Findings - EKG Comments: EKG Findings:: EKG demonstrates a sinus rhythm with a ventricular rate of 95. SD interval 168. QRS 82. QTC of 434. No acute ST segment elevations or depressions concerning for ischemic changes Medical Decision Making - Medical Decision Making Upon arrival patient placed into room 2. Patient has a fever of 100.7. IV is established the patient is given a 2 L bolus of normal saline, 10 mg Reglan and 25 mg of Benadryl. Laboratory studies reveal a white count of 15.3. Sodium 131, potassium 3.3. Urine is grossly infected and nitrite positive Covid not detected. She is started on D5 normal saline with 20 mEq KCl. Patient given a gram of Rocephin. Did recommend admission for acute pyelonephritis. Spoke with daniel from [facility] who will admit the patient. Dr. Plunkett will be placed on consult. She remained in stable condition and transferred to the floor - Lab Data Result diagrams: 12/14/21 19:43 12/14/21 19:43 Lab Results 12/14/21 12/14/21 12/14/21 Range/Units 17:50 18:01 19:43 WBC 15.3 H (3.8-10.6) k/uL RBC 3.99 (3.80-5.40) m/uL Hgb 12.7 (11.4-16.0) gm/dL Hct 36.8 (34.0-46.0) % MCV 92.3 (80.0-100.0) fL MCH 31.9 (25.0-35.0) pg MCHC 34.5 (31.0-37.0) g/dL RDW 12.6 (11.5-15.5) % Plt Count 237 (150-450) k/uL MPV 7.5 Neutrophils % 89 % Lymphocytes % 3 % Monocytes % 7 % Eosinophils % 0 % Basophils % 0 % Neutrophils # 13.7 H (1.3-7.7) k/uL Lymphocytes # 0.4 L (1.0-4.8) k/uL Monocytes # 1.1 H (0-1.0) k/uL Eosinophils # 0.1 (0-0.7) k/uL Basophils # 0.0 (0-0.2) k/uL Sodium (137-145) mmol/L Potassium (3.5-5.1) mmol/L Chloride (98-107) mmol/L Carbon Dioxide (22-30) mmol/L Anion Gap mmol/L BUN (7-17) mg/dL Creatinine (0.52-1.04) mg/dL Est GFR (CKD-EPI)AfAm (>60 ml/min/1.73 sqM) Est GFR (CKD-EPI)NonAf (>60 ml/min/1.73 sqM) Glucose (74-99) mg/dL Plasma Lactic Acid Joseph (0.7-2.0) mmol/L Calcium (8.4-10.2) mg/dL Total Bilirubin (0.2-1.3) mg/dL AST (14-36) U/L ALT (4-34) U/L Alkaline Phosphatase (38-126) U/L Total Protein (6.3-8.2) g/dL Albumin (3.5-5.0) g/dL Urine Color Yellow Urine Appearance Turbid H (Clear) Urine pH 6.0 (5.0-8.0) Ur Specific [place] 1.017 (1.001-1.035) Urine Protein 3+ H (Negative) Urine Glucose (UA) Negative (Negative) Urine Ketones 4+ H (Negative) Urine Blood Moderate H (Negative) Urine Nitrite Positive H (Negative) Urine Bilirubin Negative (Negative) Urine Urobilinogen <2.0 (<2.0) mg/dL Ur Leukocyte Esterase Large H (Negative) Urine RBC 25 H (0-5) /hpf Urine WBC >182 H (0-5) /hpf Urine WBC Clumps Many H (None) /hpf Ur Squamous Epith Cells 11 H (0-4) /hpf Urine Bacteria Occasional H (None) /hpf Urine Mucus Many H (None) /hpf Coronavirus (PCR) Not Detected (Not Detectd) 12/14/21 12/14/21 Range/Units 19:43 19:43 WBC (3.8-10.6) k/uL RBC (3.80-5.40) m/uL Hgb (11.4-16.0) gm/dL Hct (34.0-46.0) % MCV (80.0-100.0) fL MCH (25.0-35.0) pg MCHC (31.0-37.0) g/dL RDW (11.5-15.5) % Plt Count (150-450) k/uL MPV Neutrophils % % Lymphocytes % % Monocytes % % Eosinophils % % Basophils % % Neutrophils # (1.3-7.7) k/uL Lymphocytes # (1.0-4.8) k/uL Monocytes # (0-1.0) k/uL Eosinophils # (0-0.7) k/uL Basophils # (0-0.2) k/uL Sodium 131 L (137-145) mmol/L Potassium 3.3 L (3.5-5.1) mmol/L Chloride 100 (98-107) mmol/L Carbon Dioxide 18 L (22-30) mmol/L Anion Gap 13 mmol/L BUN 7 (7-17) mg/dL Creatinine 0.46 L (0.52-1.04) mg/dL Est GFR (CKD-EPI)AfAm >90 (>60 ml/min/1.73 sqM) Est GFR (CKD-EPI)NonAf >90 (>60 ml/min/1.73 sqM) Glucose 113 H (74-99) mg/dL Plasma Lactic Acid Joseph 1.0 (0.7-2.0) mmol/L Calcium 9.6 (8.4-10.2) mg/dL Total Bilirubin 1.0 (0.2-1.3) mg/dL AST 16 (14-36) U/L ALT 11 (4-34) U/L Alkaline Phosphatase 55 (38-126) U/L Total Protein 6.9 (6.3-8.2) g/dL Albumin 4.1 (3.5-5.0) g/dL Urine Color Urine Appearance (Clear) Urine pH (5.0-8.0) Ur Specific [place] (1.001-1.035) Urine Protein (Negative) Urine Glucose (UA) (Negative) Urine Ketones (Negative) Urine Blood (Negative) Urine Nitrite (Negative) Urine Bilirubin (Negative) Urine Urobilinogen (<2.0) mg/dL Ur Leukocyte Esterase (Negative) Urine RBC (0-5) /hpf Urine WBC (0-5) /hpf Urine WBC Clumps (None) /hpf Ur Squamous Epith Cells (0-4) /hpf Urine Bacteria (None) /hpf Urine Mucus (None) /hpf Coronavirus (PCR) (Not Detectd) Disposition Clinical Impression: First trimester , Pyelonephritis, Sepsis, Ketonuria, Pyrexia Disposition: ADMITTED IP TO THIS HOSP Condition: Stable Is patient prescribed a controlled substance at d/c from ED?: No Decision to Admit Reason: Admit from EC Decision Date: 12/14/21 Decision Time: 20:30
[2021-12-14] MEDS ORDERED: ACETAMINOPHEN TAB 500 MG TAB PO STA (19:00)
[2021-12-14 19:51] LABS: Basophils % (A) 0 %; Eosinophils # (A) 0.1 k/uL (0-0.7); Eosinophils % (A) 0 %; HCT 36.8 % (34.0-46.0); HGB 12.7 gm/dL (11.4-16.0); Lymphocytes # (A) 0.4 k/uL (1.0-4.8); Lymphocytes % (A) 3 %; MCH 31.9 pg (25.0-35.0); MCHC 34.5 g/dL (31.0-37.0); MCV 92.3 fL (80.0-100.0); Mean Platelet Volume 7.5; Monocytes # (A) 1.1 k/uL (0-1.0); Monocytes % (A) 7 %; Neutrophils # (A) 13.7 k/uL (1.3-7.7); Neutrophils % (A) 89 %; Platelet Count 237 k/uL (150-450); RBC 3.99 m/uL (3.80-5.40); RDW 12.6 % (11.5-15.5); WBC 15.3 k/uL (3.8-10.6)
[2021-12-14 20:00] LABS: ALT 11 U/L (4-34); AST 16 U/L (14-36); African American GFR (CKD) >90 (>60 ml/min/1.73 sqM); Albumin 4.1 g/dL (3.5-5.0); Alkaline Phosphatase 55 U/L (38-126); Anion Gap 13 mmol/L; Blood Urea Nitrogen 7 mg/dL (7-17); Calcium 9.6 mg/dL (8.4-10.2); Carbon Dioxide 18 mmol/L (22-30); Chloride 100 mmol/L (98-107); Glucose 113 mg/dL (74-99); Non-African American GFR(CKD) >90 (>60 ml/min/1.73 sqM); Potassium 3.3 mmol/L (3.5-5.1); Sodium 131 mmol/L (137-145); Total Protein 6.9 g/dL (6.3-8.2)
[2021-12-14] MEDS ORDERED: cefTRIAXone IN SWFI 1,000 MG/10 ML SYRINGE IVP STA (20:08)
[2021-12-14] MEDS ORDERED: ACETAMINOPHEN TAB 325 MG TAB PO PRN (20:30)
[2021-12-14] MEDS ORDERED: NALOXONE 0.4 MG/ML 1 ML VIAL IV PRN (20:30)
[2021-12-14] MEDS ORDERED: METOCLOPRAMIDE 5 MG/ML 2 ML VIAL IVP PRN (20:33)
[2021-12-14] MEDS: D5-0.9% NACL WITH KCL 20 MEQ/L 1,000 ML IV SCH (21:22)
[2021-12-15] MEDS: D5-0.9% NACL WITH KCL 20 MEQ/L 1,000 ML IV SCH (08:32)
[2021-12-15] MEDS: PRENATAL VIT-IRON-FOLIC ACID 1 EACH CAP PO SCH (08:35)
[2021-12-15] MEDS ORDERED: cefTRIAXone IN SWFI 1,000 MG/10 ML SYRINGE IVP SCH (09:00)
[2021-12-15 09:13] LABS: Basophils # (A) 0.01 X 10*3/uL (0.00-0.10); Basophils % (A) 0.1 %; Eosinophils # (A) 0 X 10*3/uL (0.04-0.35); Eosinophils % (A) 0 %; HCT 30.1 % (37.2-46.3); HGB 10.3 g/dL (12.0-15.0); Lymphocytes # (A) 0.66 X 10*3/uL (0.90-5.00); Lymphocytes % (A) 6.2 %; MCH 31.5 pg (27.0-32.0); MCHC 34.2 g/dL (32.0-37.0); Mean Platelet Volume 11.1 fL (9.5-12.2); Monocytes # (A) 1.15 X 10*3/uL (0.20-1.00); Monocytes % (A) 10.7 %; Neutrophils # (A) 8.86 X 10*3/uL (1.80-7.70); Neutrophils % (A) 82.5 %; Platelet Count 193 X 10*3/uL (140-440); RBC 3.27 X 10*6/uL (4.10-5.20); RDW 12.8 % (11.5-14.5); WBC 10.73 X 10*3/uL (4.50-10.00)
[2021-12-15 10:31] LABS: African American GFR (CKD) 158.1 (60.0-200.0); Anion Gap 12.6 mmol/L (10.00-18.00); BUN/Creat Ratio 7.8 Ratio (12.00-20.00); Blood Urea Nitrogen 3.9 mg/dL (9.0-27.0); Calcium 8.6 mg/dL (8.7-10.3); Carbon Dioxide 19.4 mmol/L (20.0-27.5); Non-African American GFR(CKD) 136.4 (60.0-200.0); Potassium 3.6 mmol/L (3.5-5.5)
[2021-12-15] MEDS ORDERED: POTASSIUM CHLORIDE ER 20 MEQ TAB.ER PO STA (11:39)
--- NOTE | 2021-12-15 11:41 | P.HPIM ---
History of Present Illness Patient is a pleasant 21-year-old female 7 weeks came in to emergency department with complaints of nausea vomiting for about 3 days for and also right flank pain which started about 2-3 days. Patient denied any dysuria but did have some increased urinary frequency. Patient is found to have significant abnormal urine and fever. Patient the is also 7 weeks. Patient is negative for Covid 19. And is not vaccinated. Patient pain is sharp in nature moderate severity nonradiating in the right flank area. Patient will also complaining dark-colored urine. Patient did have leukocytosis, hyponatremia and hypokalemia REVIEW OF SYSTEMS: CONSTITUTIONAL: No fever, no malaise, no fatigue. HEENT: No recent visual problems or hearing problems. Denied any sore throat. CARDIOVASCULAR: No chest pain, orthopnea, PND, no palpitations, no syncope. PULMONARY: No shortness of breath, no cough, no hemoptysis. GASTROINTESTINAL: No diarrheaNEUROLOGICAL: No headaches, no weakness, no numbness. HEMATOLOGICAL: Denies any bleeding or petechiae. GENITOURINARY: As mentioned in HPI MUSCULOSKELETAL/RHEUMATOLOGICAL: Denies any joint pain, swelling, or any muscle pain. ENDOCRINE: Denies any polyuria or polydipsia. The rest of the 14-point review of systems is negative. PHYSICAL EXAMINATION: GENERAL: The patient is alert and oriented x3, not in any acute distress. Well developed, well nourished. HEENT: Pupils are round and equally reacting to light. EOMI. No scleral icterus. No conjunctival pallor. Normocephalic, atraumatic. No pharyngeal erythema. No thyromegaly. CARDIOVASCULAR: S1 and S2 present. No murmurs, rubs, or gallops. PULMONARY: Chest is clear to auscultation, no wheezing or crackles. ABDOMEN: Soft, right-sided flank tenderness nondistended, normoactive bowel sounds. No palpable organomegaly. MUSCULOSKELETAL: No joint swelling or deformity. EXTREMITIES: No cyanosis, clubbing, or pedal edema. NEUROLOGICAL: Gross neurological examination did not reveal any focal deficits. SKIN: No rashes. Assessment and plan 1 sepsis: Secondary to urinary tract infection and pyelonephritis patient will be continued on Rocephin awaiting urine cultures and blood cultures. -7 weeks -Hyponatremia: Secondary to sepsis and hypovolemia and he with IV fluids -Hypokalemia -Anion gap metabolic ACIDOSIS secondary to possible lactic is doses for sepsis continue with IV fluids as mentioned above -Tachycardia: Sepsis and fever DVT prophylaxis: Early ambulation Past Medical History Past Medical History: No Reported History Additional Past Medical History / Comment(s): endometriosis History of Any Multi-Drug Resistant Organisms: None Reported Past Surgical History: No Surgical Hx Reported Additional Past Surgical History / Comment(s): laprascopic ovarian cyst removal Past Anesthesia/Blood Transfusion Reactions: No Reported Reaction Past Psychological History: Anxiety, Depression Smoking Status: Never smoker Past Alcohol Use History: None Reported Past Drug Use History: Marijuana - Past Family History Mother Family Medical History: No Reported History Additional Family Medical History / Comment(s): ovarian cysts Father Family Medical History: Myocardial Infarction ([place]) Additional Family Medical History / Comment(s): father in june from a heart attack Medications and Allergies Home Medications Medication Instructions Recorded Confirmed Type Acetaminophen [Tylenol] 1,000 mg PO Q4-6H PRN 12/05/21 12/14/21 History Pmp-Fgsz-Sfahz Acid 1 cap PO DAILY 12/14/21 12/14/21 History [-U Capsule (formulary)] Allergies Allergy/AdvReac Type Severity Reaction Status Date / Time azithromycin Allergy Rash/Hives Verified 12/14/21 20:42 Physical Exam Vitals: Vital Signs Temp Pulse Pulse Resp BP BP Pulse Ox 12/15/21 07:00 100.7 F H 103 H 18 99/55 100 12/15/21 03:39 99.2 F 12/15/21 01:58 103.1 F H 120 H 16 110/64 98 12/14/21 22:05 98.4 F 91 16 95/60 98 12/14/21 21:01 98.4 F 88 18 112/57 99 12/14/21 17:45 100.7 F H 117 H 20 96/66 98 Intake and Output 12/14/21 12/15/21 12/15/21 22:59 06:59 14:59 Intake Total 118 Balance 118 Intake: Oral 118 Other: Voiding Method Toilet # Voids 1 Weight 68.039 kg Results CBC & Chem 7: 12/15/21 05:47 12/15/21 05:47 Labs: Abnormal Lab Results - Last 24 Hours (Table) 12/14/21 12/14/21 12/14/21 Range/Units 18:01 19:43 19:43 WBC 15.3 H (3.8-10.6) k/uL RBC (4.10-5.20) X 10*6/uL Hgb (12.0-15.0) g/dL Hct (37.2-46.3) % Immature Gran # (0.00-0.04) X 10*3/uL Neutrophils # 13.7 H (1.3-7.7) k/uL Lymphocytes # 0.4 L (1.0-4.8) k/uL Monocytes # 1.1 H (0-1.0) k/uL Eosinophils # (0.04-0.35) X 10*3/uL Sodium 131 L (137-145) mmol/L Potassium 3.3 L (3.5-5.1) mmol/L Carbon Dioxide 18 L (22-30) mmol/L BUN (9.0-27.0) mg/dL Creatinine 0.46 L (0.52-1.04) mg/dL BUN/Creatinine Ratio (12.00-20.00) Ratio Glucose 113 H (74-99) mg/dL Calcium (8.7-10.3) mg/dL Urine Appearance Turbid H (Clear) Urine Protein 3+ H (Negative) Urine Ketones 4+ H (Negative) Urine Blood Moderate H (Negative) Urine Nitrite Positive H (Negative) Ur Leukocyte Esterase Large H (Negative) Urine RBC 25 H (0-5) /hpf Urine WBC >182 H (0-5) /hpf Urine WBC Clumps Many H (None) /hpf Ur Squamous Epith Cells 11 H (0-4) /hpf Urine Bacteria Occasional H (None) /hpf Urine Mucus Many H (None) /hpf 12/15/21 12/15/21 Range/Units 05:47 05:47 WBC 10.73 H (3.8-10.6) k/uL RBC 3.27 L (4.10-5.20) X 10*6/uL Hgb 10.3 L (12.0-15.0) g/dL Hct 30.1 L (37.2-46.3) % Immature Gran # 0.05 H (0.00-0.04) X 10*3/uL Neutrophils # 8.86 H (1.3-7.7) k/uL Lymphocytes # 0.66 L (1.0-4.8) k/uL Monocytes # 1.15 H (0-1.0) k/uL Eosinophils # 0 L (0.04-0.35) X 10*3/uL Sodium 133 L (137-145) mmol/L Potassium (3.5-5.1) mmol/L Carbon Dioxide 19.4 L (22-30) mmol/L BUN 3.9 L (9.0-27.0) mg/dL Creatinine 0.5 L (0.52-1.04) mg/dL BUN/Creatinine Ratio 7.80 L (12.00-20.00) Ratio Glucose 117 H (74-99) mg/dL Calcium 8.6 L (8.7-10.3) mg/dL Urine Appearance (Clear) Urine Protein (Negative) Urine Ketones (Negative) Urine Blood (Negative) Urine Nitrite (Negative) Ur Leukocyte Esterase (Negative) Urine RBC (0-5) /hpf Urine WBC (0-5) /hpf Urine WBC Clumps (None) /hpf Ur Squamous Epith Cells (0-4) /hpf Urine Bacteria (None) /hpf Urine Mucus (None) /hpf Microbiology - Last 24 Hours (Table) 12/14/21 18:01 Urine Culture - Preliminary Urine,Voided Thrombosis Risk Factor Assmnt - Choose All That Apply Any of the Below Risk Factors Present?: Yes Each Factor Represents 1 point: or Thrombosis Risk Factor Assessment Total Risk Factor Score: 1 Thrombosis Risk Factor Assessment Level: Low Risk
[2021-12-15] MEDS: SODIUM CHLORIDE 0.9% 1,000 ML IV SCH ×2 (12:07→23:52)
[2021-12-15] MEDS: FAMOTIDINE 20 MG TAB PO SCH ×2 (12:09→19:41)
[2021-12-15] MEDS: KETOROLAC 30 MG/ML 1 ML VIAL IVP PRN ×2 (13:03→19:40)
[2021-12-16] MEDS: PRENATAL VIT-IRON-FOLIC ACID 1 EACH CAP PO SCH (08:54)
[2021-12-16] MEDS: FAMOTIDINE 20 MG TAB PO SCH ×2 (08:54→19:13)
[2021-12-16] MEDS: SODIUM CHLORIDE 0.9% 1,000 ML IV SCH ×2 (08:54→19:12)
--- NOTE | 2021-12-16 08:57 | P.OBCN ---
History of Present Illness Consult date: 12/16/21 Reason for consult: other (. pyelonephritis) Chief complaint: pyelonephritis History of present illness: 21 year old at 7 weeks gestation presents with flank pain, leukocystosis and signs of UTI. She was admitted to medicine for pyelonephritis and put on IV antibiotics. She was feeling better after 24 hours of IV antibiotics. Her white blood cell count has come down from 15-10. I advised she stay and IV a ntibiotics for 24-48 hours of being afebrile and no leukocytosis. Review of Systems All systems: negative Constitutional: Denies chills, Denies fever Eyes: denies blurred vision, denies pain Ears, nose, mouth and throat: Denies headache, Denies sore throat Cardiovascular: Denies chest pain, Denies shortness of breath Respiratory: Denies cough Gastrointestinal: Denies abdominal pain, Denies diarrhea, Denies nausea, Denies vomiting Genitourinary: Denies dysuria, Denies hematuria Musculoskeletal: Denies myalgias Integumentary: Denies pruritus, Denies rash Neurological: Denies numbness, Denies weakness Psychiatric: Denies anxiety, Denies depression Endocrine: Denies fatigue, Denies weight change Past Medical History Past Medical History: No Reported History Additional Past Medical History / Comment(s): endometriosis History of Any Multi-Drug Resistant Organisms: None Reported Past Surgical History: No Surgical Hx Reported Additional Past Surgical History / Comment(s): laprascopic ovarian cyst removal Past Anesthesia/Blood Transfusion Reactions: No Reported Reaction Past Psychological History: Anxiety, Depression Smoking Status: Never smoker Past Alcohol Use History: None Reported Past Drug Use History: Marijuana - Past Family History Mother Family Medical History: No Reported History Additional Family Medical History / Comment(s): ovarian cysts Father Family Medical History: Myocardial Infarction ([place]) Additional Family Medical History / Comment(s): father in june from a heart attack Medications and Allergies Home Medications Medication Instructions Recorded Confirmed Type Acetaminophen [Tylenol] 1,000 mg PO Q4-6H PRN 12/05/21 12/14/21 History Jho-Onqm-Hzfqa Acid 1 cap PO DAILY 12/14/21 12/14/21 History [-U Capsule (formulary)] Allergies Allergy/AdvReac Type Severity Reaction Status Date / Time azithromycin Allergy Rash/Hives Verified 12/14/21 20:42 Exam Osteopathic Statement: *. No significant issues noted on an osteopathic structural exam other than those noted in the History and Physical/Consult. Vital Signs Temp Pulse Resp BP Pulse Ox 12/16/21 07:00 99.0 F 89 18 93/57 99 12/16/21 02:14 99.3 F 98 15 104/58 99 12/15/21 19:14 98.8 F 101 H 16 108/64 100 12/15/21 14:22 98.8 F 99 18 110/69 99 Intake and Output 12/15/21 12/16/21 12/16/21 22:59 06:59 14:59 Intake Total 118 Balance 118 Intake: Oral 118 Other: Voiding Method Toilet Toilet # Voids 1 2 Heart: Regular rate and rhythm Lungs: Clear to auscultation bilaterally Abdomen: Soft, nontender Extremities: Negative Homans sign Results Result Diagrams: 12/15/21 05:47 12/15/21 05:47 Abnormal Lab Results - Last 24 Hours (Table) 12/15/21 12/15/21 Range/Units 05:47 05:47 WBC 10.73 H (4.50-10.00) X 10*3/uL RBC 3.27 L (4.10-5.20) X 10*6/uL Hgb 10.3 L (12.0-15.0) g/dL Hct 30.1 L (37.2-46.3) % Immature Gran # 0.05 H (0.00-0.04) X 10*3/uL Neutrophils # 8.86 H (1.80-7.70) X 10*3/uL Lymphocytes # 0.66 L (0.90-5.00) X 10*3/uL Monocytes # 1.15 H (0.20-1.00) X 10*3/uL Eosinophils # 0 L (0.04-0.35) X 10*3/uL Sodium 133 L (135-145) mmol/L Carbon Dioxide 19.4 L (20.0-27.5) mmol/L BUN 3.9 L (9.0-27.0) mg/dL Creatinine 0.5 L (0.6-1.5) mg/dL BUN/Creatinine Ratio 7.80 L (12.00-20.00) Ratio Glucose 117 H (70-110) mg/dL Calcium 8.6 L (8.7-10.3) mg/dL Assessment and Plan (1) 7 weeks gestation of Current Visit: Yes Status: Acute Code(s): Z3A.01 - LESS THAN 8 WEEKS GESTATION OF SNOMED Code(s): 48022714 (2) Pyelonephritis Current Visit: Yes Status: Acute Code(s): N12 - TUBULO-INTERSTITIAL NEPHRITIS, NOT SPCF ACUTE OR CHRONIC SNOMED Code(s): 81916272 Plan: 1. DC Toradol as that has not appropriate to give someone in 2. She can have pain control with Tylenol and ice packs and heating pads 3. Regular diet 4. vitamin 5. Follow-up with [place] when she is discharged
[2021-12-16 11:03] LABS: Basophils # (A) 0.01 X 10*3/uL (0.00-0.10); Basophils % (A) 0.2 %; Eosinophils # (A) 0.01 X 10*3/uL (0.04-0.35); Eosinophils % (A) 0.2 %; HCT 28.9 % (37.2-46.3); HGB 9.4 g/dL (12.0-15.0); Lymphocytes # (A) 0.63 X 10*3/uL (0.90-5.00); Lymphocytes % (A) 12.8 %; MCH 30.5 pg (27.0-32.0); MCHC 32.5 g/dL (32.0-37.0); MCV 93.8 fL (80.0-97.0); Mean Platelet Volume 10.9 fL (9.5-12.2); Monocytes # (A) 0.66 X 10*3/uL (0.20-1.00); Monocytes % (A) 13.4 %; Neutrophils # (A) 3.61 X 10*3/uL (1.80-7.70); Platelet Count 175 X 10*3/uL (140-440); RBC 3.08 X 10*6/uL (4.10-5.20); WBC 4.94 X 10*3/uL (4.50-10.00)
--- NOTE | 2021-12-16 16:25 | P.PN ---
Subjective Progress Note Date: 12/16/21 Patient is a pleasant 21-year-old female 7 weeks came in to emergency department with complaints of nausea vomiting for about 3 days for and also right flank pain which started about 2-3 days. Patient denied any dysuria but did have some increased urinary frequency. Patient is found to have significant abnormal urine and fever. Patient the is also 7 weeks. Patient is negative for Covid 19. And is not vaccinated. Patient pain is sharp in nature moderate severity nonradiating in the right flank area. Patient will also complaining dark-colored urine. Patient did have leukocytosis, hyponatremia and hypokalemia 12/16/2021 This is a pleasant 21-year-old female who is 7 weeks gestation. Patient is sitting in bed. She reports that her right-sided flank pain is much improved an d is nontender to palpation today. She denies any burning or discomfort with urination. No abdominal pain. She had some form of diarrhea yesterday. She is being followed by OB services patient is on IV antibiotics and will await finalized cultures prior to discharge. No acute events overnight and no further complaints. Vital signs show low-grade temp of 99.3, heart rate 89, blood pressure on the softer side at 93/57 99% on room air. Labs today show white count 4.4, hemoglobin 9.4. ROS Constitutional: Denied any fatigue denied any fever. Cardio vascular: denied any chest pain, palpitations Gastrointestinal denied any nausea vomiting Pulmonary: Denied any shortness of breath cough Neurologic denied any new focal deficits All inpatient medications were reviewed and appropriate changes in these medications as dictated in the interval history and assessment and plan. PHYSICAL EXAMINATION: GENERAL: The patient is alert and oriented x3, not in any acute distress. Well developed, well nourished. HEENT: Pupils are round and equally reacting to light. EOMI. No scleral icterus. No conjunctival pallor. Normocephalic, atraumatic. No pharyngeal erythema. No thyromegaly. CARDIOVASCULAR: S1 and S2 present. No murmurs, rubs, or gallops. PULMONARY: Chest is clear to auscultation, no wheezing or crackles. ABDOMEN: Soft, right-sided flank tenderness improving, nondistended, normoactive bowel sounds. No palpable organomegaly. MUSCULOSKELETAL: No joint swelling or deformity. EXTREMITIES: No cyanosis, clubbing, or pedal edema. NEUROLOGICAL: Gross neurological examination did not reveal any focal deficits. SKIN: No rashes. Assessment and plan -Sepsis: Secondary to urinary tract infection and pyelonephritis patient will be continued on Rocephin awaiting urine cultures -7 weeks -Hyponatremia: Secondary to sepsis and hypovolemia, slowly improving with IV fluids -Hypokalemia: improving -Anion gap metabolic acidosis secondary to possible lactic acidosis for sepsis continue with IV fluids -Tachycardia: Sepsis and fever, improved DVT prophylaxis: Early ambulation Continue with pain management in the form of Tylenol Discharge on antibiotics when cultures are finalized Objective - Vital Signs Vital signs: Vital Signs Temp 99.0 F 12/16/21 07:00 Pulse 89 12/16/21 07:00 Resp 18 12/16/21 07:00 BP 93/57 12/16/21 07:00 Pulse Ox 99 12/16/21 07:00 Intake & Output 12/15/21 12/16/21 12/16/21 18:59 06:59 18:59 Intake Total 354 Balance 354 Intake: Oral 354 Other: Voiding Method Toilet Toilet # Voids 3 2 # Bowel Movements 1 - Labs CBC & Chem 7: 12/16/21 06:59 12/15/21 05:47
[2021-12-17] MEDS: SODIUM CHLORIDE 0.9% 1,000 ML IV SCH (05:38)
[2021-12-17] MEDS: FAMOTIDINE 20 MG TAB PO SCH (09:34)
[2021-12-17] MEDS: PRENATAL VIT-IRON-FOLIC ACID 1 EACH CAP PO SCH (09:34)
[2021-12-17 12:25] LABS: African American GFR (CKD) 170.2 (60.0-200.0); Anion Gap 11.7 mmol/L (10.00-18.00); BUN/Creat Ratio 7.5 Ratio (12.00-20.00); Calcium 8.5 mg/dL (8.7-10.3); Carbon Dioxide 20.3 mmol/L (20.0-27.5); Non-African American GFR(CKD) 146.8 (60.0-200.0); Potassium 3.6 mmol/L (3.5-5.5)
[2021-12-17] MEDS ORDERED: POTASSIUM CHLORIDE ER 20 MEQ TAB.ER PO STA (13:34)
[2021-12-17 14:27] VITALS: BP 103/66; PULSE 84; RESP 22; TEMP 99.1
--- NOTE | 2021-12-17 15:21 | P.DS ---
Providers Date of admission: 12/14/21 20:30 Attending physician: Lan Díaz Consults: 12/14/21 20:32 Consult Physician Urgent Consulting Provider: Maddy Plunkett Consult Reason/Comments: first trimester , acute pyelo Do you want consulting provider notified?: Yes Primary care physician: Maggy Evans [facility] Course: -Sepsis: Secondary to urinary tract infection and pyelonephritis patient will be continued on Rocephin, prelim cultures show gram neg bacilli should have finalized cultures around dinnertime tonight -7 weeks -Hyponatremia: Secondary to sepsis and hypovolemia, resolved -Hypokalemia: resolved -Anion gap metabolic acidosis secondary to possible lactic acidosis for sepsis, resolved -Tachycardia: Sepsis and fever, improved Discharge Disposition Patient is stable for discharge home from medical standpoint on oral antibiotics once cultures are finalized. She will need to follow up with OB for routine care and follow up with PCP. Hospital Course This is a pleasant 21 year old female with past medical history significant for endometriosis and laparoscopic ovarian cyst removal, she is a never smoker, anxiety depression. Patient is 7 weeks gestation. She presented to the with right flank pain, nausea, vomiting, inability to tolerate oral intake as well as dark color urine. Patient also presented with fever of 100.7 with a T-max of 103.1 this admission. There has been no complaints of vaginal bleeding or cramping. She follows with Dr. Plunkett in the OB office and her PCP is Dr. Winter. Urinalysis on admission shows turbid urine, 3+ protein, 4+ ketones, moderate blood, positive nitrate, large leukocyte esterase, 25 RBC, greater than 182 WBC, many WBC clumps, 11 squamous epithelial cells, occasional bacteria and many mucus. Patient was admitted to the hospital with acute pyelonephritis consult OB and started on IV Rocephin. Urine cultures are pending they are currently showing gram-negative bacilli patient will be cleared for discharge once cultures are finalized. Labs on admission show a white count of 15.3, sodium 131, potassium 3.3, CO2 18, anion 13, creatinine 0.46, glucose 113. [place] virus PCR is not detected. She had one episode of diarrhea this admission. 12/17/2021 Patient evaluated today in the bed. She states that her flank pain has improved she is not having any abdominal pain, denies nausea vomiting or diarrhea. She is tolerating diet well. She denies any dysuria, burning, urgency, frequency, or blood in the urine. Urine is now yellow and clear. Vital signs reviewed, patient has been afebrile in the last 48 hours, heart rate 82 sinus rhythm, blood pressure 93/54 and she is 99% on room air. Most recent labs show white count of 4.4, hemoglobin 9.4, sodium 136, potassium 3.6, anion 11.7, CO2 20.3, BUN 3.0, creatinine 0.4, calcium 8.5. Lungs are clear there is no tenderness to the flank on palpation, S1-S2 auscultated. Positive bowel sounds. Focal neurological exam is negative. Please see medication reconciliation for list of current medications. Thank you for allowing us to participate in the care of this patient. Patient Condition at Discharge: Stable Plan - Discharge Summary Discharge Rx Participant: No New Discharge Prescriptions: New Famotidine [Pepcid] 20 mg PO BID 14 Days #28 tab Acetaminophen Tab [Tylenol] 650 mg PO Q6HR PRN tab PRN Reason: Mild Pain Or Fever > 100.5 Continue Tgi-Dcnl-Htpko Acid [-U Capsule (formulary)] 1 cap PO DAILY Discontinued Acetaminophen [Tylenol] 1,000 mg PO Q4-6H PRN PRN Reason: Pain Or Fever > 100.5 Discharge Medication List Kiw-Efya-Sljif Acid [-U Capsule (formulary)] 1 cap PO DAILY 12/14/21 [History] Acetaminophen Tab [Tylenol] 650 mg PO Q6HR PRN tab 12/17/21 [Rx] Famotidine [Pepcid] 20 mg PO BID 14 Days #28 tab 12/17/21 [Rx] Follow up Appointment(s)/Referral(s): Cristina Winter MD [Primary Care Provider] - 1-2 days Maddy Plunkett DO [Doctor of Osteopathic Medicine] - 1 Week Patient Instructions/Handouts: Urinary Tract Infection in (DC) Discharge Disposition: HOME SELF-CARE
== END 2021-12-17 17:41 | disposition home or self-care (01) ==
LOC: EC 17:15 → 6NMEDSUR 20:30
PROVIDERS: ADMIT Hospitalist; ATTEND Hospitalist
DX: O23.01 Infections of kidney in pregnancy, first trimester (principal); A41.59 Other Gram-negative sepsis; N10 Acute pyelonephritis; Z3A.01 Less than 8 weeks gestation of pregnancy; Z20.822 Contact with and (suspected) exposure to COVID-19; O99.281 Endocrine, nutritional and metabolic diseases complicating pregnancy, first trimester; E87.6 Hypokalemia; E86.1 Hypovolemia; E87.1 Hypo-osmolality and hyponatremia; E87.2 Acidosis; O99.891 Other specified diseases and conditions complicating pregnancy; N80.9 Endometriosis, unspecified; O99.341 Other mental disorders complicating pregnancy, first trimester; F32.A Depression, unspecified; F41.9 Anxiety disorder, unspecified; Z88.1 Allergy status to other antibiotic agents; Z87.42 Personal history of other diseases of the female genital tract; Z82.49 Family history of ischemic heart disease and other diseases of the circulatory system
CPT/HCPCS: 99285; 96376 ×2; 96361 ×3; 96366 ×2; 96367; 96368; 96365; 96375 ×2; 36415; 93005; 86900; 86901; 80053; 80048 ×2; 83605; 85025 ×3; 81001; 87086; 87077; 87186; 87635; G0378 ×4; J1200; J2765; J0696 ×4; J1885; S0197 ×3

== ENCOUNTER 2022-06-06 12:30 | Outpatient (CLI) | payer BC ==
[2022-06-06 12:49] VITALS: PULSE 85; RESP 16
[2022-06-06 13:20] VITALS: BP 122/60; TEMP 97.5
[2022-06-06 13:22] LABS: Amorphous Sediment,Urine Rare /hpf; Appearance,Urine Cloudy (Clear); Bacteria,Urine Occasional /hpf; Bilirubin,Urine Negative (Negative); Blood,Urine Negative (Negative); Color,Urine Light Yellow; Glucose,Urine (UA) Negative (Negative); Ketones,Urine Negative (Negative); Leukocyte Esterase,Urine Small (Negative); Mucus,Urine Occasional /hpf; Nitrite,Urine Negative (Negative); PH, Urine 7.5 (5.0-8.0); Protein,Urine Negative (Negative); RBC,Urine 1 /hpf (0-5); Specific Gravity,Urine 1.009 (1.001-1.035); Squamous Epithelial Cell,Urine 10 /hpf (0-4); Urobilinogen,Urine <2.0 mg/dL (<2.0); WBC,Urine 3 /hpf (0-5)
--- NOTE | 2022-06-07 07:21 | P.MSEPDOC ---
Presenting Problems - Arrival Data Date of Arrival on Unit: 06/06/22 Time of Arrival on Unit: 12:30 Mode of Transport: Ambulatory - Complaint OB-Reason for Admission/Chief Complaint: Acute Nausea/Vomiting Comment: pt reports hx of epigastric pain with that was associated with 4 episodes of emesis today starting at 0730, pt denies taking tums which normally helps reduce the epigastric pain, denies complications with pregnany Medical History - Information : 1 Para: 0 Term: 0 : 0 Abortions: Spontaneous or Elective: 0 Number of Living Children: 0 - Gestational Age Gestational Age by SONI (wks/days): 32 Weeks and 0 Days - History Comment: uses marijuana occasionally for nausea Review of Systems - Review of Systems Constitutional: No problems Breast: No problems ENT: No problems Cardiovascular: No problems Respiratory: No problems Gastrointestinal: Pain Genitourinary: No problems Musculoskeletal: No problems Neurological: No problems Skin: No problems Vital Signs - Temperature Temperature: 97.5 F Temperature Source: Oral - Pulse Right Brachial Pulse Rate: 85 Pulse Assessment Method: Automatic Cuff - Respirations Respiratory Rate: 16 Oxygen Delivery Method: Room Air O2 Sat by Pulse Oximetry: 99 - Blood Pressure Right Arm Blood Pressure: 122/60 Blood Pressure Mean: 80 Blood Pressure Source: Automatic Cuff Medical Screen Scoring - Assessment - Baby A Baseline FHR: 145 Heart Rate - NICHD Category: Category I (Normal) NST: Reactive Physician Notification - Physician Notified Physician Notified Date: 06/06/22 Physician Notified Time: 13:00 Physician: Maikel Mendoza New Order Received: Yes (dc home, send urine for u/a and c+s) Maternal Triage Index - Non-Urgent/Priority 4 Non-Urgent Priority 4: Yes Criteria Met for Priority 4: u/a sent, pt to follow up with dr gan Disposition - Disposition OB Disposition: Discharge to home, Written follow up instructions reviewed Discharge Date: 06/06/22 Discharge Time: 13:15 I agree with the RN Medical Screening Exam: Yes Case reviewed; plan agreed upon as documented in EMR&OBIX.: Yes Diagnosis: ACUTE GASTRITIS WITHOUT BLEEDING
== END 2022-06-06 13:15 | disposition home or self-care (01) ==
LOC: FBPOP 12:30
PROVIDERS: ATTEND Obstetrics & Gynecology
DX: O99.613 Diseases of the digestive system complicating pregnancy, third trimester (principal); K29.00 Acute gastritis without bleeding; Z3A.32 32 weeks gestation of pregnancy; Z88.1 Allergy status to other antibiotic agents
CPT/HCPCS: 59025; 81001; 99213

== ENCOUNTER 2022-07-27 06:15 | Inpatient (IN) | payer OTHER ==
[2022-07-27] MEDS ORDERED: CARBOPROST TROMETHAMINE 250 MCG/ML 1 ML AMP IM PRN (06:42)
[2022-07-27] MEDS ORDERED: METHYLERGONOVINE 0.2 MG/ML 1 ML AMP IM PRN (06:42)
[2022-07-27] MEDS ORDERED: OXYTOCIN 10 UNIT/ML 1 ML VIAL IM PRN (06:42)
[2022-07-27] MEDS ORDERED: TERBUTALINE 1 MG/ML VIAL SQ PRN (06:42)
[2022-07-27] MEDS ORDERED: LIDOCAINE 0.5% (PF) 5 MG/ML (50 ML SDV) SQ PRN (06:42)
[2022-07-27] MEDS ORDERED: OXYTOCIN 30 UNITS/500 ML NS 30 UNIT in SALINE 1 500ML.BAG IV SCH ×2 (06:45→19:30)
[2022-07-27 07:07] VITALS: RESP 16
[2022-07-27] MEDS: LACTATED RINGERS 1,000 ML IV SCH ×3 (07:10→18:45)
[2022-07-27 07:34] LABS: Basophils % (A) 0 %; Eosinophils % (A) 1 %; HCT 34.2 % (34.0-46.0); HGB 10.7 gm/dL (11.4-16.0); Hypochromasia Slight; Lymphocytes # (A) 1.6 k/uL (1.0-4.8); Lymphocytes % (A) 25 %; MCH 28.3 pg (25.0-35.0); MCHC 31.3 g/dL (31.0-37.0); MCV 90.5 fL (80.0-100.0); Mean Platelet Volume 8.7; Monocytes # (A) 0.4 k/uL (0-1.0); Monocytes % (A) 6 %; Neutrophils # (A) 4.1 k/uL (1.3-7.7); Neutrophils % (A) 66 %; Platelet Count 311 k/uL (150-450); RBC 3.78 m/uL (3.80-5.40); RDW 14.5 % (11.5-15.5); WBC 6.2 k/uL (3.8-10.6)
--- NOTE | 2022-07-27 07:48 | P.HPOB ---
History of Present Illness H&P Date: 07/27/22 Chief Complaint: Induction of labor 21 year old presents at 39 weeks 2 days for induction of labor. Her cervix is 1/70/-2. She is lynsey irregularly. Her heart tones are 135 with moderate variability and reactive. Review of Systems All systems: negative Constitutional: Denies chills, Denies fever Eyes: denies blurred vision, denies pain Ears, nose, mouth and throat: Denies headache, Denies sore throat Cardiovascular: Denies chest pain, Denies shortness of breath Respiratory: Denies cough Gastrointestinal: Denies abdominal pain, Denies diarrhea, Denies nausea, Denies vomiting Genitourinary: Denies dysuria, Denies hematuria Musculoskeletal: Denies myalgias Integumentary: Denies pruritus, Denies rash Neurological: Denies numbness, Denies weakness Psychiatric: Denies anxiety, Denies depression Endocrine: Denies fatigue, Denies weight change Past Medical History Past Medical History: No Reported History Additional Past Medical History / Comment(s): endometriosis History of Any Multi-Drug Resistant Organisms: None Reported Past Surgical History: No Surgical Hx Reported Additional Past Surgical History / Comment(s): laprascopic ovarian cyst removal Past Anesthesia/Blood Transfusion Reactions: No Reported Reaction Past Psychological History: Anxiety, Depression Additional Psychological History / Comment(s): anxiety, depression, bipolar run in family Smoking Status: Never smoker Past Alcohol Use History: None Reported Past Drug Use History: Marijuana - Past Family History Mother Family Medical History: No Reported History Additional Family Medical History / Comment(s): ovarian cysts Father Family Medical History: Myocardial Infarction ([place]) Additional Family Medical History / Comment(s): father in june from a heart attack Medications and Allergies Home Medications Medication Instructions Recorded Confirmed Type Xuw-Yyei-Agkwi Acid 1 cap PO DAILY 12/14/21 07/27/22 History [-U Capsule (formulary)] Acetaminophen Tab [Tylenol] 650 mg PO Q6HR PRN tab 12/17/21 07/27/22 Rx Allergies Allergy/AdvReac Type Severity Reaction Status Date / Time azithromycin AdvReac Nausea & Verified 07/27/22 06:41 Vomiting Exam Osteopathic Statement: *. No significant issues noted on an osteopathic structural exam other than those noted in the History and Physical/Consult. Vital Signs Temp Pulse Resp BP Pulse Ox 07/27/22 06:40 98.0 F 113 H 16 132/81 99 Intake and Output 07/26/22 07/27/22 07/27/22 22:59 06:59 14:59 Other: Weight 83.915 kg Heart: Regular rate and rhythm Lungs: Clear to auscultation bilaterally Abdomen: Soft, nontender Extremities: Negative Homans sign Results Result Diagrams: 07/27/22 06:34 Abnormal Lab Results - Last 24 Hours (Table) 07/27/22 Range/Units 06:34 RBC 3.78 L (3.80-5.40) m/uL Hgb 10.7 L (11.4-16.0) gm/dL Assessment and Plan (1) Encounter for induction of labor Current Visit: Yes Status: Acute Code(s): Z34.90 - ENCNTR FOR SUPRVSN OF NORMAL , UNSP, UNSP TRIMESTER SNOMED Code(s): 742679609 (2) 39 weeks gestation of Current Visit: Yes Status: Acute Code(s): Z3A.39 - 39 WEEKS GESTATION OF SNOMED Code(s): 64603541 Plan: 1 induction of labor with amniotomy and Pitocin 2. Anticipate normal vaginal delivery
[2022-07-27] MEDS ORDERED: BUTORPHANOL 1 MG/ML 1 ML VIAL IV PRN (14:16)
[2022-07-27] MEDS ORDERED: ZOLPIDEM 5 MG TAB PO PRN (19:20)
[2022-07-27] MEDS ORDERED: diphenhydrAMINE 50 MG CAP PO PRN (19:20)
[2022-07-27] MEDS ORDERED: diphenhydrAMINE 25 MG CAP PO PRN (19:20)
[2022-07-27] MEDS ORDERED: SIMETHICONE 80 MG CHEWABLE PO PRN (19:20)
[2022-07-27] MEDS ORDERED: BENZOCAINE/MENTHOL SPRAY 1 GM/SPRAY AEROSOL TOPICAL PRN (19:20)
[2022-07-27] MEDS ORDERED: ACETAMINOPHEN TAB 325 MG TAB PO PRN (19:20)
[2022-07-27] MEDS ORDERED: HYDROCORTISONE 2.5% RECTAL CREAM 30 GM TUBE RECTAL PRN (19:20)
[2022-07-27] MEDS ORDERED: LANOLIN CREAM 5 GM TUBE TOPICAL PRN (19:20)
[2022-07-27] MEDS ORDERED: diphenhydrAMINE 50 MG/ML 1 ML VIAL IVP PRN ×2 (19:20)
--- NOTE | 2022-07-27 19:20 | P.PROBDLV ---
Vaginal Delivery Note - . Vaginal Delivery Note: 21 year old presents at 39 weeks 2 days for induction of labor. Her cervix is 1/70/-2. She is lynsey irregularly. Her heart tones are 135 with moderate variability and reactive. Pitocin was started. Amniotomy performed at 7:44 AM and clear fluid noted. She progressed slowly throughout the day and when she was 5 cm and uncomfortable she got an epidural. Her cervix was completely dilated at 1835. She pushed, delivered a viable male infant over i ntact perineum under epidural anesthesia at 1907. Head delivered OA, nuchal cord 1 easily reduced, anterior shoulder delivered gentle downward guidance followed by posterior shoulder and rest of body. Nose and mouth bulb suctioned, cord clamped and cut, infant placed mother's abdomen. Apgars 9, 9, weight 6 pounds 13.9 ounces. Placenta delivered spontaneously, intact with three-vessel cord at 1909. Gen., cervix, perineum were inspected. Second-degree midline laceration was repaired with 3-0 Vicryl. Estimated blood loss 150 mL. Mother and baby in stable condition.
[2022-07-27] MEDS: IBUPROFEN 600 MG TAB PO PRN (19:37)
[2022-07-28] MEDS: IBUPROFEN 600 MG TAB PO PRN ×4 (02:59→21:00)
--- NOTE | 2022-07-28 07:39 | P.DS ---
Providers Date of admission: 07/27/22 06:20 Expected date of discharge: 07/28/22 Attending physician: Maddy Plunkett Primary care physician: Stated None - Discharge Diagnosis(es) (1) Encounter for induction of labor Current Visit: Yes Status: Resolved (2) 39 weeks gestation of Current Visit: Yes Status: Resolved (3) Normal vaginal delivery Current Visit: Yes Status: Acute Hospital Course: Patient presented for induction of labor. She underwent a normal vaginal delivery. course was uncomplicated. She denies nausea, vomiting, chest pain, shortness of breath or any calf pain. Patient will be discharged home day #1 in stable condition to follow-up with me in 6 weeks. Plan - Discharge Summary New Discharge Prescriptions: New Ibuprofen [Motrin] 600 mg PO Q6HR PRN #30 tab PRN Reason: Mild Pain (Scale 1 To 3) No Action Ham-Rjhb-Fxcza Acid [-U Capsule (formulary)] 1 cap PO DAILY Acetaminophen Tab [Tylenol] 650 mg PO Q6HR PRN tab PRN Reason: Mild Pain Or Fever > 100.5 Discharge Medication List Rqd-Rdof-Vsipx Acid [-U Capsule (formulary)] 1 cap PO DAILY 12/14/21 [History] Acetaminophen Tab [Tylenol] 650 mg PO Q6HR PRN tab 12/17/21 [Rx] Ibuprofen [Motrin] 600 mg PO Q6HR PRN #30 tab 07/28/22 [Rx] Follow up Appointment(s)/Referral(s): Maddy Plunkett DO [Doctor of Osteopathic Medicine] - 09/14/22 3:45 pm Discharge Disposition: HOME SELF-CARE
[2022-07-28] MEDS: SENNOSIDES-DOCUSATE SODIUM 1 EACH TAB PO SCH ×3 (07:44→21:01)
[2022-07-28 08:04] LABS: Basophils % (A) 0 %; Eosinophils % (A) 0 %; HCT 27.1 % (34.0-46.0); Hypochromasia Slight; Lymphocytes # (A) 1.6 k/uL (1.0-4.8); Lymphocytes % (A) 11 %; MCH 29.2 pg (25.0-35.0); MCHC 32.5 g/dL (31.0-37.0); MCV 89.8 fL (80.0-100.0); Mean Platelet Volume 8.6; Monocytes # (A) 0.8 k/uL (0-1.0); Monocytes % (A) 6 %; Neutrophils # (A) 12.1 k/uL (1.3-7.7); Neutrophils % (A) 83 %; Platelet Count 241 k/uL (150-450); RBC 3.02 m/uL (3.80-5.40); RDW 14.6 % (11.5-15.5); WBC 14.6 k/uL (3.8-10.6)
[2022-07-28 08:08] LABS: HGB 8.8 gm/dL (11.4-16.0)
[2022-07-28] MEDS ORDERED: ROPIVACAINE 100 MG, fentaNYL (PF). 200 MCG in SODIUM CHLORIDE 0.9% 76 ML EPIDURAL ONE (08:42)
[2022-07-29] MEDS: IBUPROFEN 600 MG TAB PO PRN ×2 (07:42→15:20)
[2022-07-29] MEDS: SENNOSIDES-DOCUSATE SODIUM 1 EACH TAB PO SCH (07:43)
[2022-07-29 08:19] VITALS: BP 135/89; PULSE 70; TEMP 97.5
--- NOTE | 2022-07-29 15:13 | P.PNOBGVD ---
Subjective - Subjective Patient reports: Reports appetite normal, Reports voiding normally, Reports pain well controlled, Reports ambulating normally : doing well Objective - Latest Vital Signs Latest vital signs: Vital Signs Temp Pulse Resp BP Pulse Ox 07/29/22 08:18 97.5 F L 70 16 135/89 07/29/22 00:00 97.6 F 80 16 139/63 99 07/28/22 16:10 98.1 F 70 16 130/83 100 Intake and Output 07/29/22 07/29/22 07/29/22 06:59 14:59 22:59 Other: # Voids 1 - Exam Lungs: bilateral: normal Chest: Normal S1, Normal S2 Extremities: Present: normal Abdomen: Present: normal appearance, soft Uterus: Present: normal, firm Assessment and Plan Assessment: day #2. Patient was discharged home yesterday but because her baby's jaundice she elected to stay. Plan is to continue routine care discharge home later today. (1) Normal vaginal delivery Current Visit: Yes Status: Acute Code(s): O80 - ENCOUNTER FOR FULL-TERM UNCOMPLICATED DELIVERY SNOMED Code(s): 16055102
== END 2022-07-29 16:11 | disposition home or self-care (01) | DRG 807 ==
LOC: 4FBP 06:20
PROVIDERS: ADMIT Obstetrics & Gynecology; ATTEND Obstetrics & Gynecology
PROC: 0KQM0ZZ Repair Perineum Muscle, Open Approach (ICD-10-PCS; principal; 2022-07-27)
PROC: 10E0XZZ Delivery of Products of Conception, External Approach (ICD-10-PCS; principal; 2022-07-27)
PROC: 3E033VJ Introduction of Other Hormone into Peripheral Vein, Percutaneous Approach (ICD-10-PCS; 2022-07-27)
PROC: 10907ZC Drainage of Amniotic Fluid, Therapeutic from Products of Conception, Via Natural or Artificial Opening (ICD-10-PCS; 2022-07-27)
DX: O69.81X0 Labor and delivery complicated by cord around neck, without compression, not applicable or unspecified (principal); Z37.0 Single live birth; N80.9 Endometriosis, unspecified; O70.1 Second degree perineal laceration during delivery; Z28.310 Unvaccinated for COVID-19; Z3A.39 39 weeks gestation of pregnancy; Z79.899 Other long term (current) drug therapy; Z86.59 Personal history of other mental and behavioral disorders
CPT/HCPCS: 85025; 86850; 86900; 86901; 88307

== ENCOUNTER 2022-12-05 20:09 | Emergency (ER) | payer OTHER ==
[2022-12-05] MEDS ORDERED: AMOXIC-POT CLAV 875-125MG 1 EACH TAB PO STA (21:29)
[2022-12-05] MEDS ORDERED: ACET/COD 300 MG/30 MG STARTER PACK 6 TAB BTL PO STA (21:30)
--- NOTE | 2022-12-05 21:33 | ED ---
ENT HPI - General Chief complaint: Dental/Oral Stated complaint: dental pain/infection Time Seen by Provider: 12/05/22 21:07 Source: patient, family Mode of arrival: ambulatory Limitations: no limitations - History of Present Illness Initial comments: Patient is a 22-year-old female who presents with left lower tooth pain. Pain started one week ago. Taking Tylenol and Motrin with some relief. She feels that the pain is worsening. No fever, chills, difficulty breathing. Patient states she broke her back left molar during but could not have the tooth pulled out at this time. Patient states she was referred to a dentist by primary care provider but has not made an appointment yet. - Related Data Home Medications Medication Instructions Recorded Confirmed Irn-Agmi-Wgczd Acid 1 cap PO DAILY 12/14/21 07/27/22 [-U Capsule (formulary)] Previous Rx's Medication Instructions Recorded Acetaminophen Tab [Tylenol] 650 mg PO Q6HR PRN tab 12/17/21 Ibuprofen [Motrin] 600 mg PO Q6HR PRN #30 tab 07/28/22 Amoxic-Pot Clav 875-125Mg 1 tab PO Q12HR 10 Days #20 tab 12/05/22 [Augmentin 875-125] Ibuprofen [Motrin] 800 mg PO Q8HR PRN #30 tab 12/05/22 Allergies Allergy/AdvReac Type Severity Reaction Status Date / Time azithromycin AdvReac Nausea & Verified 07/27/22 06:41 Vomiting Review of Systems ROS Statement: Those systems with pertinent positive or pertinent negative responses have been documented in the HPI. ROS Other: All systems not noted in ROS Statement are negative. Past Medical History Past Medical History: No Reported History Additional Past Medical History / Comment(s): endometriosis History of Any Multi-Drug Resistant Organisms: None Reported Past Surgical History: No Surgical Hx Reported Additional Past Surgical History / Comment(s): laprascopic ovarian cyst removal Past Anesthesia/Blood Transfusion Reactions: No Reported Reaction Past Psychological History: Anxiety, Depression Smoking Status: Never smoker Past Alcohol Use History: None Reported Past Drug Use History: Marijuana - Past Family History Mother Family Medical History: No Reported History Additional Family Medical History / Comment(s): ovarian cysts Father Family Medical History: Myocardial Infarction ([place]) Additional Family Medical History / Comment(s): father in june from a heart attack General Exam Limitations: no limitations General appearance: alert, in no apparent distress Head exam: Present: atraumatic, normocephalic, normal inspection ENT exam: Present: other (back left molar broken and decayed. Mild erythema of surrounding gingiva. No fluctuance, no drainable abscess ) Neck exam: Present: normal inspection. Absent: tenderness Respiratory exam: Present: normal lung sounds bilaterally. Absent: respiratory distress, wheezes, rales, rhonchi, stridor Cardiovascular Exam: Present: regular rate, normal rhythm, normal heart sounds. Absent: systolic murmur, diastolic murmur, rubs, gallop, clicks Neurological exam: Present: alert, oriented X3, CN II-XII intact Psychiatric exam: Present: normal affect, normal mood Skin exam: Present: warm, dry, intact, normal color. Absent: rash Course Vital Signs 12/05/22 12/05/22 20:22 21:59 Temperature 97.8 F 98 F Pulse Rate 79 80 Respiratory 16 18 Rate Blood Pressure 137/69 130/61 O2 Sat by Pulse 99 99 Oximetry Medical Decision Making - Medical Decision Making Was pt. sent in by a medical professional or institution (, PA, MANAGER TAX, urgent care, hospital, or retirement...) When possible be specific @ -[No] Did you speak to anyone other than the patient for history (EMS, parent, family, police, friend...)? What history was obtained from this source @ -[No] Did you review nursing and triage notes (agree or disagree)? Why? @ -[I reviewed and agree with nursing and triage notes] Were old charts reviewed (outside hosp., previous admission, EMS record, old EKG, old radiological studies, urgent care reports/EKG's, retirement records)? Report findings @ -[No old charts were reviewed] Differential Diagnosis (chest pain, altered mental status, abdominal pain women, abdominal pain men, vaginal bleeding, weakness, fever, dyspnea, syncope, headache, dizziness, GI bleed, back pain, seizure, CVA, palpatations, mental health)? @ -dental infection, dental abscess, osteomyelitis EKG interpreted by me (3pts min.). @ -[As above] X-rays interpreted by me (1pt min.). @ -[None done] CT interpreted by me (1pt min.). @ -[None done] U/S interpreted by me (1pt. min.). @ -[None done] What testing was considered but not performed or refused? (CT, X-rays, U/S, labs)? Why? @ -[None] What meds were considered but not given or refused? Why? @ -[None] Did you discuss the management of the patient with other professionals (professionals i.e. , PA, MANAGER TAX, lab, RT, psych nurse, social worker masters, account manager education, teacher, airport operations officer, vocational case manager)? Give summary @ -[No] Was smoking cessation discussed for >3mins.? @ -[No] Was critical care preformed (if so, how long)? @ -[No] Were there social determinants of health that impacted care today? How? (Homelessness, low income, unemployed, alcoholism, drug addiction, transportation, low edu. Level, literacy, decrease access to med. care, half-way, rehab)? @ -[No] Was there de-escalation of care discussed even if they declined (Discuss DNR or withdrawal of care, Hospice)? DNR status @ -[No] What co-morbidities impacted this encounter? (DM, HTN, Smoking, COPD, CAD, Cancer, CVA, ARF, Chemo, Hep., AIDS, mental health diagnosis, sleep apnea, morbid obesity)? @ -[None] Was patient admitted / discharged? Hospital course, mention meds given and route, prescriptions, significant lab abnormalities, going to OR and other pertinent info. @ This is a 22-year-old presenting for tooth pain. The left bottom back molar is fractured with dental decay. There is evidence of early infection. No abscess. No airway involvement. Patient will be discharged with Augmentin for tooth infection. She will follow-up with her dentist for further evaluation and management. Undiagnosed new problem with uncertain prognosis? @ -[No] Drug Therapy requiring intensive monitoring for toxicity (Heparin, Nitro, Insulin, Cardizem)? @ -[No] Were any procedures done? @ -[No] Diagnosis/symptom? @ -dental infection Acute, or Chronic, or Acute on Chronic? @ -acute Uncomplicated (without systemic symptoms) or Complicated (systemic symptoms)? @ uncomplicated Side effects of treatment? @ -[No] Exacerbation, Progression, or Severe Exacerbation? @ -[No] Poses a threat to life or bodily function? How? (Chest pain, [place], [place], pneumonia, PE, COPD, DKA, ARF, appy, cholecystitis, CVA, Diverticulitis, Homicidal, Suicidal, threat to staff... and all critical care pts) @ -[No] Dr. Hawkins is my attending. Disposition Clinical Impression: Dental infection Disposition: HOME SELF-CARE Condition: Good Instructions (If sedation given, give patient instructions): Dental Abscess (ED), Toothache (ED) Additional Instructions: Take medication as directed. Follow up with dentist in 1-2 days. Return to the ED if you experience new, concerning, or worsening symptoms. Prescriptions: Amoxic-Pot Clav 875-125Mg [Augmentin 875-125] 1 tab PO Q12HR 10 Days #20 tab Ibuprofen [Motrin] 800 mg PO Q8HR PRN #30 tab PRN Reason: Pain Is patient prescribed a controlled substance at d/c from ED?: No Referrals: None,Stated [Primary Care Provider] - 1-2 days Time of Disposition: 21:33
[2022-12-05 22:00] VITALS: BP 130/61; PULSE 80; RESP 18; TEMP 98
== END 2022-12-05 22:00 | disposition home or self-care (01) ==
LOC: EC 20:09
DX: K04.7 Periapical abscess without sinus (principal); F41.9 Anxiety disorder, unspecified; F32.A Depression, unspecified; F12.90 Cannabis use, unspecified, uncomplicated; Z88.1 Allergy status to other antibiotic agents
CPT/HCPCS: 99282

== ENCOUNTER 2023-04-12 19:14 | Emergency (ER) | payer OTHER ==
--- NOTE | 2023-04-12 20:14 | ED ---
URI HPI - General Chief Complaint: Upper Respiratory Infection Stated Complaint: COVID Time Seen by Provider: 04/12/23 20:13 Source: patient Mode of arrival: ambulatory Limitations: no limitations - History of Present Illness Initial Comments: Patient is a 22-year-old female who presents emergency department for COVID-19 symptoms. Patient had a positive at home test yesterday. Patient has fatigue, nasal congestion,dry cough, nausea. No abdominal pain or vomiting. She also complains of new tingling in the fingertips of her left hand. She denies any pain in the left upper extremity. Denies injury or issues with movement. Denies chest pain and shortness of breath. - Related Data Home Medications Medication Instructions Recorded Confirmed Cea-Niza-Otmdt Acid 1 cap PO DAILY 12/14/21 07/27/22 [-U Capsule (formulary)] Previous Rx's Medication Instructions Recorded Acetaminophen Tab [Tylenol] 650 mg PO Q6HR PRN tab 12/17/21 Ibuprofen [Motrin] 600 mg PO Q6HR PRN #30 tab 07/28/22 Amoxic-Pot Clav 875-125Mg 1 tab PO Q12HR 10 Days #20 tab 12/05/22 [Augmentin 875-125] Ibuprofen [Motrin] 800 mg PO Q8HR PRN #30 tab 12/05/22 Cephalexin [Keflex] 500 mg PO Q6HR #40 cap 12/26/22 Ketorolac [Toradol] 10 mg PO Q8HR #15 tab 12/26/22 Ibuprofen [Motrin] 800 mg PO Q8HR PRN #30 tab 04/12/23 Ondansetron Odt [Zofran Odt] 4 mg PO Q8HR PRN #10 tab 04/12/23 Allergies Allergy/AdvReac Type Severity Reaction Status Date / Time azithromycin AdvReac Nausea & Verified 12/26/22 13:54 Vomiting Review of Systems ROS Statement: Those systems with pertinent positive or pertinent negative responses have been documented in the HPI. ROS Other: All systems not noted in ROS Statement are negative. Past Medical History Past Medical History: No Reported History Additional Past Medical History / Comment(s): endometriosis History of Any Multi-Drug Resistant Organisms: None Reported Past Surgical History: No Surgical Hx Reported Additional Past Surgical History / Comment(s): laprascopic ovarian cyst removal Past Anesthesia/Blood Transfusion Reactions: No Reported Reaction Past Psychological History: Anxiety, Depression Smoking Status: Never smoker Past Alcohol Use History: None Reported Past Drug Use History: Marijuana - Past Family History Mother Family Medical History: No Reported History Additional Family Medical History / Comment(s): ovarian cysts Father Family Medical History: Myocardial Infarction ([place]) Additional Family Medical History / Comment(s): father in june from a heart attack General Exam - General Exam Comments Initial Comments: Visual Physical Exam Vital signs reviewed General: Well-appearing, nontoxic, no acute distress. Head: Normocephalic, atraumatic Eyes: PERRLA, EOMI ENT: Airway patent Chest: Nonlabored breathing Skin: No visual rash, normal skin tone Neuro: Alert and oriented 3 Musculoskeletal: No gross abnormalities Limitations: no limitations General appearance: alert, in no apparent distress Head exam: Present: atraumatic, normocephalic, normal inspection Eye exam: Present: normal appearance, PERRL, EOMI. Absent: scleral icterus, conjunctival injection, periorbital swelling Respiratory exam: Present: normal lung sounds bilaterally. Absent: respiratory distress, wheezes, rales, rhonchi, stridor Cardiovascular Exam: Present: regular rate, normal rhythm, normal heart sounds. Absent: systolic murmur, diastolic murmur, rubs, gallop, clicks GI/Abdominal exam: Present: soft, normal bowel sounds. Absent: distended, tenderness, guarding, rebound, rigid Left Hand Wrist exam: Present: normal inspection, full ROM. Absent: tenderness, swelling, abrasion, laceration, ecchymosis, deformity, crepitus, dislocation Neuro motor exam: Present: wrist extension intact, thumb opposition intact, thumb IP flexion intact, thumb adduction intact, fingers 2-5 abduction intact Vascular: Present: normal capillary refill Neurological exam: Present: alert, oriented X3, CN II-XII intact Expanded Sensory exam: Upper Extremity Light Touch: Normal, Lower Extremity Light Touch: Normal Motor strength exam: RUE: 5, LUE: 5, RLE: 5, LLE: 5 Psychiatric exam: Present: normal affect, normal mood Skin exam: Present: warm, dry, intact, normal color. Absent: rash Course Vital Signs 04/12/23 20:07 Temperature 101.9 F H Pulse Rate 103 H Respiratory 22 Rate Blood Pressure 112/58 O2 Sat by Pulse 98 Oximetry Medical Decision Making - Medical Decision Making Was pt. sent in by a medical professional or institution (AMARA Patrick, CRIBBING [employer]TER, urgent care, hospital, or long-term...) When possible be specific @ -No Did you speak to anyone other than the patient for history (EMS, parent, family, police, friend...)? What history was obtained from this source @ -No Did you review nursing and triage notes (agree or disagree)? Why? @ -[I reviewed and disagree. Patient does not have shortness of breath Were old charts reviewed (outside hosp., previous admission, EMS record, old EKG, old radiological studies, urgent care reports/EKG's, long-term records)? Report findings @ -No old charts were reviewed Differential Diagnosis (chest pain, altered mental status, abdominal pain women, abdominal pain men, vaginal bleeding, weakness, fever, dyspnea, syncope, headache, dizziness, GI bleed, back pain, seizure, CVA, palpatations, mental health)? @ -URI, sinusitus,strep pharyngitis, viral pharyngitis, pneumonia, bronchitis- this list is not meant to be all-inclusive EKG interpreted by me (3pts min.). @ -As above X-rays interpreted by me (1pt min.). @ -Yes, chest x-ray negative for acute process CT interpreted by me (1pt min.). @ -None done U/S interpreted by me (1pt. min.). @ -None done What testing was considered but not performed or refused? (CT, X-rays, U/S, labs)? Why? @ -None What meds were considered but not given or refused? Why? @ -None Did you discuss the management of the patient with other professionals (professionals i.e. AMARA Patrick, CRIBBING SETTER, lab, RT, psych nurse, social welfare research worker, cost clerk, teacher, hydrographical technical officer, caser)? Give summary @ -No Was smoking cessation discussed for >3mins.? @ -No Was critical care preformed (if so, how long)? @ -No Were there social determinants of health that impacted care today? How? (Homelessness, low income, unemployed, alcoholism, drug addiction, transportation, low edu. Level, literacy, decrease access to med. care, nursing home, rehab)? @ -No Was there de-escalation of care discussed even if they declined (Discuss DNR or withdrawal of care, Hospice)? DNR status @ -No What co-morbidities impacted this encounter? (DM, HTN, Smoking, COPD, CAD, C ancer, CVA, ARF, Chemo, Hep., AIDS, mental health diagnosis, sleep apnea, morbid obesity)? @ -None Was patient admitted / discharged? Hospital course, mention meds given and route, prescriptions, significant lab abnormalities, going to OR and other pertinent info. @ -Patient presenting with COVID-19 symptoms as well as tingling in left hand fingertips. She does not have pain in the left upper extremity. She is neurovascularly intact. Full range of motion of the left upper extremity. Discussed case in detail with patient. No explanation for new onset tingling. Patient does have a fever which is treated in the emergency department. Chest x-ray negative for acute process. She will be discharged with symptomatic management. She will follow-up with primary care provider who may need to refer her to neurologist if symptoms persist. Undiagnosed new problem with uncertain prognosis? @ -No Drug Therapy requiring intensive monitoring for toxicity (Heparin, Nitro, Insulin, Cardizem)? @ -No Were any procedures done? @ -No Diagnosis/symptom? @ -covid 19 Acute, or Chronic, or Acute on Chronic? @ -Acute Uncomplicated (without systemic symptoms) or Complicated (systemic symptoms)? @ -Uncomplicated Side effects of treatment? @ -No Exacerbation, Progression, or Severe Exacerbation? @ -No Poses a threat to life or bodily function? How? (Chest pain, [place], [place], pneumonia, PE, COPD, DKA, ARF, appy, cholecystitis, CVA, Diverticulitis, Homicidal, Suicidal, threat to staff... and all critical care pts) @ -No Dr. Hawkins is my attending Disposition Clinical Impression: COVID Disposition: HOME SELF-CARE Condition: Good Instructions (If sedation given, give patient instructions): COVID-19 (Coronavirus Disease 2019) (ED) Additional Instructions: Take medication as directed. Please follow-up with your primary care provider in 1-2 days. Return to the emergency department if you experience new, concerning, or worsening symptoms. Prescriptions: Ibuprofen [Motrin] 800 mg PO Q8HR PRN #30 tab PRN Reason: Pain Ondansetron Odt [Zofran Odt] 4 mg PO Q8HR PRN #10 tab PRN Reason: nausea Is patient prescribed a controlled substance at d/c from ED?: No Referrals: None,Stated [Primary Care Provider] - 1-2 days
--- NOTE | 2023-04-12 20:27 | XR ---
EXAMINATION TYPE: XR chest 2V DATE OF EXAM: 04/12/2023 8:21 PM COMPARISON: Chest radiographs from 10/11/2020 TECHNIQUE: XR chest 2V Frontal and lateral views of the chest. CLINICAL INDICATION:Female, 22 years old with history of SOB; FINDINGS: Lungs/Pleura: There is no evidence of pleural effusion, focal consolidation, or pneumothorax. Pulmonary vascularity: Unremarkable. Heart/mediastinum: Cardiomediastinal silhouette is unremarkable. Musculoskeletal: No acute osseous pathology. IMPRESSION: No acute cardiopulmonary disease/process.
[2023-04-12] MEDS ORDERED: IBUPROFEN 800 MG TAB PO STA (21:00)
[2023-04-12] MEDS ORDERED: ONDANSETRON ODT 4 MG TAB PO STA (21:05)
[2023-04-12] MEDS ORDERED: FLUTICASONE 50MCG/SPRAY NASAL 16GM EA NOSTRIL STA (21:05)
[2023-04-12 22:39] VITALS: BP 120/77; PULSE 86; RESP 16; TEMP 99.5
== END 2023-04-12 22:37 | disposition home or self-care (01) ==
LOC: EC 19:14
DX: U07.1 COVID-19 (principal); F12.90 Cannabis use, unspecified, uncomplicated; Z86.59 Personal history of other mental and behavioral disorders; Z88.1 Allergy status to other antibiotic agents
CPT/HCPCS: 71046; 99283

== ENCOUNTER 2023-12-06 14:27 | Emergency (ER) | payer OTHER ==
--- NOTE | 2023-12-06 14:38 | ED ---
General Adult HPI - General Source: patient, RN notes reviewed Mode of arrival: ambulatory Limitations: no limitations <Jalil Mosqueda - Last Filed: 12/06/23 14:37> - General Source: patient, RN notes reviewed <Marizol Wallis - Last Filed: 12/06/23 16:53> - General Stated complaint: Cough,Headaches Time Seen by Provider: 12/06/23 14:37 - History of Present Illness Initial comments: 23-year-old female presented emergency Department with chief complaint cough congestion shortness of breath. Patient states symptoms started over the for last 4-5 days increased nasal congestion, chest congestion possible fever. (Jalil Mosqueda) Patient is a 23-year-old female presenting to the ER with chief complaint of cough and congestion. Patient states it has been going on for the past 4-5 days. Patient has had increased shortness of breath and wheezing. Patient states that she has been using her sons albuterol nebulizer with slight improvement. Patient reports nightsweats, chills and possible fevers. Denies any chest pain, abdominal pain, urinary symptoms, or peripheral edema. (Marizol Wallis) - Related Data Home Medications Medication Instructions Recorded Confirmed Udf-Xmco-Rdiwt Acid 1 cap PO DAILY 12/14/21 07/27/22 [-U Capsule (formulary)] Previous Rx's Medication Instructions Recorded Acetaminophen Tab [Tylenol] 650 mg PO Q6HR PRN tab 12/17/21 Ibuprofen [Motrin] 600 mg PO Q6HR PRN #30 tab 07/28/22 Amoxic-Pot Clav 875-125Mg 1 tab PO Q12HR 10 Days #20 tab 12/05/22 [Augmentin 875-125] Ibuprofen [Motrin] 800 mg PO Q8HR PRN #30 tab 12/05/22 Cephalexin [Keflex] 500 mg PO Q6HR #40 cap 12/26/22 Ketorolac [Toradol] 10 mg PO Q8HR #15 tab 12/26/22 Ibuprofen [Motrin] 800 mg PO Q8HR PRN #30 tab 04/12/23 Ondansetron Odt [Zofran Odt] 4 mg PO Q8HR PRN #10 tab 04/12/23 Albuterol Inhaler [Ventolin Hfa 1 - 2 puff INHALATION Q6H PRN #1 12/06/23 Inhaler] each Albuterol Nebulized [Ventolin 2.5 mg INHALATION Q4H PRN #75 ml 12/06/23 Nebulized] Allergies Allergy/AdvReac Type Severity Reaction Status Date / Time azithromycin AdvReac Nausea & Verified 12/26/22 13:54 Vomiting Review of Systems ROS Other: All systems not noted in ROS Statement are negative. <Jalil Mosqueda - Last Filed: 12/06/23 14:37> ROS Other: All systems not noted in ROS Statement are negative. <Marizol Wallis - Last Filed: 12/06/23 16:53> ROS Statement: Those systems with pertinent positive or pertinent negative responses have been documented in the HPI. Past Medical History Past Medical History: No Reported History Additional Past Medical History / Comment(s): endometriosis History of Any Multi-Drug Resistant Organisms: None Reported Past Surgical History: No Surgical Hx Reported Additional Past Surgical History / Comment(s): laprascopic ovarian cyst removal Past Anesthesia/Blood Transfusion Reactions: No Reported Reaction Past Psychological History: Anxiety, Depression Smoking Status: Never smoker Past Alcohol Use History: None Reported Past Drug Use History: Marijuana - Past Family History Mother Family Medical History: No Reported History Additional Family Medical History / Comment(s): ovarian cysts Father Family Medical History: Myocardial Infarction ([place]) Additional Family Medical History / Comment(s): father in june from a heart attack <Jalil Mosqueda Sara - Last Filed: 12/06/23 14:37> General Exam <Jalil Mosqueda - Last Filed: 12/06/23 14:37> General appearance: alert, in no apparent distress Head exam: Present: atraumatic, normocephalic, normal inspection ENT exam: Present: normal exam, normal oropharynx, mucous membranes moist, TM's normal bilaterally Neck exam: Present: normal inspection. Absent: tenderness, meningismus, lymphadenopathy Respiratory exam: Present: normal lung sounds bilaterally, wheezes (harsh breathing sounds bilaterally). Absent: respiratory distress, rales, rhonchi, stridor Cardiovascular Exam: Present: regular rate, normal rhythm, normal heart sounds. Absent: systolic murmur, diastolic murmur, rubs, gallop, clicks Neurological exam: Present: alert, oriented X3, CN II-XII intact Psychiatric exam: Present: normal affect, normal mood Skin exam: Present: warm, dry, intact, normal color. Absent: rash <Marizol Wallis - Last Filed: 12/06/23 16:53> - General Exam Comments Initial Comments: Visual Physical Exam Vital signs reviewed General: Well-appearing, nontoxic, no acute distress. Head: Normocephalic, atraumatic Eyes: PERRLA, EOMI ENT: Airway patent Chest: Nonlabored breathing Skin: No visual rash, normal skin tone Neuro: Alert and oriented 3 Musculoskeletal: No gross abnormalities (Jalil Mosqueda) Course Vital Signs 12/06/23 14:34 Temperature 98 F Pulse Rate 60 Respiratory 16 Rate Blood Pressure 115/71 O2 Sat by Pulse 97 Oximetry Medical Decision Making <Jalil Mosqueda - Last Filed: 12/06/23 14:37> - Radiology Data Radiology results: report reviewed, image reviewed <Marizol Wallis - Last Filed: 12/06/23 16:53> - Medical Decision Making I completed the quick note portion of this chart signed Jalil Mosqueda PA-C (Jalil Mosqueda) Was pt. sent in by a medical professional or institution (AMARA Patrick, [employer], urgent care, hospital, or fpc...) When possible be specific @ -No Did you speak to anyone other than the patient for history (EMS, parent, family, police, friend...)? What history was obtained from this source @ -No Did you review nursing and triage notes (agree or disagree)? Why? @ -I reviewed and agree with nursing and triage notes Were old charts reviewed (outside hosp., previous admission, EMS record, old EKG, old radiological studies, urgent care reports/EKG's, fpc records)? Report findings @ -No old charts were reviewed Differential Diagnosis (chest pain, altered mental status, abdominal pain women, abdominal pain men, vaginal bleeding, weakness, fever, dyspnea, syncope, headache, dizziness, GI bleed, back pain, seizure, CVA, palpatations, mental health, musculoskeletal)? @ -COVID-19, RSV, influenza, pneumonia, viral sinusitis this list is not meant to be all-inclusive EKG interpreted by me (3pts min.). @ -None X-rays interpreted by me (1pt min.). @ -Chest x-ray shows no acute cardiopulmonary process. CT interpreted by me (1pt min.). @ -None done U/S interpreted by me (1pt. min.). @ -None done What testing was considered but not performed or refused? (CT, X-rays, U/S, labs)? Why? @ -None What meds were considered but not given or refused? Why? @ -None Did you discuss the management of the patient with other professionals (professionals i.e. , PA, [employer], lab, RT, psych nurse, social work program coordinator, lock operator, teacher, command center officer, keycase assembler)? Give summary @ -No Was smoking cessation discussed for >3mins.? @ -No Was critical care preformed (if so, how long)? @ -No Were there social determinants of health that impacted care today? How? (Homelessness, low income, unemployed, alcoholism, drug addiction, transportation, low edu. Level, literacy, decrease access to med. care, correction, rehab)? @ -No Was there de-escalation of care discussed even if they declined (Discuss DNR or withdrawal of care, Hospice)? DNR status @ -No What co-morbidities impacted this encounter? (DM, HTN, Smoking, COPD, CAD, Cancer, CVA, ARF, Chemo, Hep., AIDS, mental health diagnosis, sleep apnea, morbid obesity)? @ -None Was patient admitted / discharged? Hospital course, mention meds given and route, prescriptions, significant lab abnormalities, going to OR and other pertinent info. @ -Discharge. Patient is 23-year-old female presented ER with chief complaint of cough. Vitals stable. History and physical exam were completed. Patient had bilateral harsh breath sounds with mild wheezing. Patient was not in any acute distress. COVID-19, influenza, RSV negative. Chest x-ray showed no acute process. Patient will be discharged with a prescription of nebulized abuterol and an albuterol inhaler. I advised her to use [id number] Tylenol and Mo henrietta for fever control. Return parameters were discussed. Patient will be discharged in stable condition with follow-up to PCP. Patient expressed understanding and agreement with care plan. Undiagnosed new problem with uncertain prognosis? @ -No Drug Therapy requiring intensive monitoring for toxicity (Heparin, Nitro, Insulin, Cardizem)? @ -No Were any procedures done? @ -No Diagnosis/symptom? @ -Viral sinusitis/viral illness Acute, or Chronic, or Acute on Chronic? @ -Acute Uncomplicated (without systemic symptoms) or Complicated (systemic symptoms)? @ -Uncomplicated Side effects of treatment? @ -No Exacerbation, Progression, or Severe Exacerbation? @ -No Poses a threat to life or bodily function? How? (Chest pain, [place], [place], pneumonia, PE, COPD, DKA, ARF, appy, cholecystitis, CVA, Diverticulitis, Homicidal, Suicidal, threat to staff... and all critical care pts) @ -No (Marizol Wallis) - Lab Data Lab Results 12/06/23 Range/Units 14:40 Influenza Type A (PCR) Not Detected (Not Detectd) Influenza Type B (PCR) Not Detected (Not Detectd) RSV (PCR) Not Detected (Not Detectd) SARS-CoV-2 (PCR) Not Detected (Not Detectd) Disposition <Jalil Mosqueda - Last Filed: 12/06/23 14:37> Is patient prescribed a controlled substance at d/c from ED?: No Time of Disposition: 16:40 <Marizol Wallis - Last Filed: 12/06/23 16:53> Clinical Impression: Viral infection Disposition: HOME SELF-CARE Condition: Stable Instructions (If sedation given, give patient instructions): Upper Respiratory Infection (ED) Additional Instructions: Please follow-up with PCP. Return to ER for any new or worsening symptoms. Prescriptions: Albuterol Inhaler [Ventolin Hfa Inhaler] 1 - 2 puff INHALATION Q6H PRN #1 each PRN Reason: Shortness Of Breath Albuterol Nebulized [Ventolin Nebulized] 2.5 mg INHALATION Q4H PRN #75 ml PRN Reason: difficulty in breathing Referrals: None,Stated [Primary Care Provider] - 1-2 days
[2023-12-06 14:50] VITALS: BP 115/71; PULSE 60; RESP 16; TEMP 98
--- NOTE | 2023-12-06 15:22 | XR ---
EXAMINATION TYPE: XR chest 2V DATE OF EXAM: 12/06/2023 COMPARISON: 04/12/2023 HISTORY: 23 year-old female shortness of breath and cough TECHNIQUE: PA and lateral views FINDINGS: The cardiomediastinal silhouette, aorta, and pulmonary vasculature are within normal limits. Lungs an d pleural spaces are clear. IMPRESSION: No acute cardiopulmonary process.
== END 2023-12-06 17:17 | disposition home or self-care (01) ==
LOC: EC 14:27
DX: B34.9 Viral infection, unspecified (principal); F12.90 Cannabis use, unspecified, uncomplicated; Z86.59 Personal history of other mental and behavioral disorders; Z88.1 Allergy status to other antibiotic agents; Z20.822 Contact with and (suspected) exposure to COVID-19
CPT/HCPCS: 71046; 87636; 99284

== ENCOUNTER 2025-02-28 09:37 | Emergency (ER) | payer OTHER ==
[2025-02-28 10:54] LABS: Appearance,Urine Cloudy (Clear); Bilirubin,Urine Negative (Negative); Blood,Urine Negative (Negative); Color,Urine Light Yellow; Glucose,Urine (UA) Negative (Negative); Ketones,Urine Negative (Negative); Leukocyte Esterase,Urine Large (Negative); Mucus,Urine Many /hpf; Nitrite,Urine Negative (Negative); Protein,Urine Negative (Negative); RBC,Urine 1 /hpf (0-5); Specific Gravity,Urine 1.023 (1.001-1.035); Squamous Epithelial Cell,Urine 38 /hpf (0-4); Urobilinogen,Urine <2.0 mg/dL (<2.0); WBC,Urine 1 /hpf (0-5)
--- NOTE | 2025-02-28 10:54 | ED ---
General Adult HPI - General Source: patient Mode of arrival: ambulatory Limitations: no limitations <Quinones,Sushma - Last Filed: 02/28/25 11:26> <Alexys Cherry - Last Filed: 03/03/25 20:15> - General Chief complaint: Recheck/Abnormal Lab/Rx Stated complaint: pelvic pain Time Seen by Provider: 02/28/25 09:54 - History of Present Illness Initial comments: Patient is a 24-year-old female primigravida who presents to the ER with her fianc with abdominal pain. Patient does endorse history of endometriosis and states her pain is similar prior episodes and is not progressively worsening. Patient states she has taken 2 tests in the last 24 hours and they have both been positive. Patient states her last menstrual period was at the end of November. She has not established care yet. She does not have a PCP either. Patient reports that she did have some vaginal bleeding on Opal ntine's Day after intercourse. She states it did not last long has not occurred since. Had Influenza A last month and took unknown medication that she d/t because she didnt like how it made her feel. Stable diet and hydration. Patient reports she is not on any medications, denies any allergies and is not taking a vitamin at this time. Patient denies nausea, vomiting, decreased oral intake, fevers, chills, vaginal bleeding or leakage of fluids. (Sushma Quinones) - Related Data Previous Rx's Medication Instructions Recorded Acetaminophen Tab [Tylenol] 650 mg PO Q6HR PRN tab 12/17/21 Ibuprofen [Motrin] 600 mg PO Q6HR PRN #30 tab 07/28/22 Amoxic-Pot Clav 875-125Mg 1 tab PO Q12HR 10 Days #20 tab 12/05/22 [Augmentin 875-125] Ibuprofen [Motrin] 800 mg PO Q8HR PRN #30 tab 12/05/22 Cephalexin [Keflex] 500 mg PO Q6HR #40 cap 12/26/22 Ketorolac [Toradol] 10 mg PO Q8HR #15 tab 12/26/22 Ibuprofen [Motrin] 800 mg PO Q8HR PRN #30 tab 04/12/23 Ondansetron Odt [Zofran Odt] 4 mg PO Q8HR PRN #10 tab 04/12/23 Albuterol Inhaler [Ventolin Hfa 1 - 2 puff INHALATION Q6H PRN #1 12/06/23 Inhaler] each Albuterol Nebulized [Ventolin 2.5 mg INHALATION Q4H PRN #75 ml 12/06/23 Nebulized] Nsh-Iqmn-Tvvou Acid 1 cap PO DAILY #30 cap 02/28/25 [-U Capsule (formulary)] Allergies Allergy/AdvReac Type Severity Reaction Status Date / Time azithromycin AdvReac Nausea & Verified 12/26/22 13:54 Vomiting Review of Systems ROS Other: All systems not noted in ROS Statement are negative. Constitutional: Denies: fever, chills Respiratory: Denies: cough, dyspnea, wheezes Cardiovascular: Denies: chest pain, palpitations Endocrine: Denies: fatigue Gastrointestinal: Reports: abdominal pain. Denies: nausea, vomiting, diarrhea Genitourinary: Denies: urgency, dysuria, frequency, hematuria Skin: Denies: rash, lesions Neurological: Denies: headache <Sushma Quinones - Last Filed: 02/28/25 11:26> ROS Other: All systems not noted in ROS Statement are negative. <Alexys Cherry - Last Filed: 03/03/25 20:15> ROS Statement: Those systems with pertinent positive or pertinent negative responses have been documented in the HPI. Past Medical History Past Medical History: No Reported History Additional Past Medical History / Comment(s): endometriosis,ovrian cyst History of Any Multi-Drug Resistant Organisms: None Reported Past Surgical History: No Surgical Hx Reported Additional Past Surgical History / Comment(s): laprascopic ovarian cyst removal Past Anesthesia/Blood Transfusion Reactions: No Reported Reaction Past Psychological History: Anxiety, Depression Smoking Status: Never smoker Past Alcohol Use History: None Reported Past Drug Use History: Marijuana - Past Family History Mother Family Medical History: No Reported History Additional Family Medical History / Comment(s): ovarian cysts Father Family Medical History: Myocardial Infarction ([place]) Additional Family Medical History / Comment(s): father in june from a heart attack <Sushma Quinones - Last Filed: 02/28/25 11:26> General Exam Limitations: no limitations General appearance: alert, in no apparent distress Head exam: Present: atraumatic, normocephalic Eye exam: Present: normal appearance, PERRL, EOMI Respiratory exam: Present: normal lung sounds bilaterally. Absent: respiratory distress, wheezes, rales, stridor Cardiovascular Exam: Present: regular rate, normal rhythm, normal heart sounds GI/Abdominal exam: Present: tenderness (Mild epigastric tenderness noted to deep palpation), normal bowel sounds. Absent: soft, distended, mass, bruit Neurological exam: Present: alert, oriented X3, CN II-XII intact Psychiatric exam: Present: normal affect, normal mood Skin exam: Present: warm, dry, intact <Sushma Quinones - Last Filed: 02/28/25 11:26> Course <Sushma Quinones - Last Filed: 02/28/25 11:26> Vital Signs 02/28/25 02/28/25 09:40 11:36 Temperature 98.0 F 98.2 F Pulse Rate 78 76 Respiratory 20 16 Rate Blood Pressure 115/67 118/72 O2 Sat by Pulse 100 97 Oximetry - Reevaluation(s) Reevaluation #1: 02/28/25 11:22 Patient resting comfortably in bed. Patient not currently endorsing any abdominal pain. No worsening of symptoms. (Sushma Quinones) Medical Decision Making <Sushma Quinones - Last Filed: 02/28/25 11:26> <Alexys Cherry - Last Filed: 03/03/25 20:15> - Medical Decision Making Was pt. sent in by a medical professional or institution (, PA, MICROBIOLOGY ANALYST, urgent care, hospital, or senior living...) When possible be specific @ -No Did you speak to anyone other than the patient for history (EMS, parent, family, police, friend...)? What history was obtained from this source @ -No Did you review nursing and triage notes (agree or disagree)? Why? @ -I reviewed and agree with nursing and triage notes Were old charts reviewed (outside hosp., previous admission, EMS record, old EK G, old radiological studies, urgent care reports/EKG's, senior living records)? Report findings @ -No old charts were reviewed Differential Diagnosis? @ -Differential Abdominal Pain Women: Appendicitis, Cholecystitis, diverticulosis, ischemic bowel, pancreatitis, hepatitis, UTI, gastroenteritis, AAA, incarcerated hernia, bowel obstruction, constipation, inflammatory bowel, hepatitis, peptic ulcer disease, splenic infarction, perforated viscus, vulvitis, ovarian torsion, PID, kidney stone, placenta abruption, this is not meant to be an all-inclusive list EKG interpreted by me (3pts min.). @ -None done X-rays interpreted by me (1pt min.). @ -None done CT interpreted by me (1pt min.). @ -None done U/S interpreted by me (1pt. min.). @ -None done What testing was considered but not performed or refused? (CT, X-rays, U/S, labs)? Why? @ -None What meds were considered but not given or refused? Why? @ -None Did you discuss the management of the patient with other professionals (professionals i.e. , PA, MICROBIOLOGY ANALYST, lab, RT, psych nurse, director of social media marketing, termite exterminator, teacher, chief contract officer, case reviewer)? Give summary @ -Case was discussed with ED attending physician Dr. Cherry. UA, serum hCG, POC hCG were ordered. Patient will be discharged home. Patient has to follow-up with PCP and start routine care. Was smoking cessation discussed for >3mins.? @ -No Was critical care preformed (if so, how long)? @ -No Were there social determinants of health that impacted care today? How? (Homelessness, low income, unemployed, alcoholism, drug addiction, transportation, low edu. Level, literacy, decrease access to med. care, prison, rehab)? @ -No Was there de-escalation of care discussed even if they declined (Discuss DNR or withdrawal of care, Hospice)? DNR status @ -No What co-morbidities impacted this encounter? (DM, HTN, Smoking, COPD, CAD, Cancer, CVA, ARF, Chemo, Hep., AIDS, mental health diagnosis, sleep apnea, morbid obesity)? @ -None Was patient admitted / discharged? Hospital course, mention meds given and route, prescriptions, significant lab abnormalities, going to OR and other pertinent info. @ -Discharged home with self-care. Prescription for vitamins sent to pharmacy. Patient to establish with PCP and start routine care. Undiagnosed new problem with uncertain prognosis? @ -No Drug Therapy requiring intensive monitoring for toxicity (Heparin, Nitro, Insulin, Cardizem)? @ -No Were any procedures done? @ -No Diagnosis/symptom? @ -Abdominal pain, positive test Acute, or Chronic, or Acute on Chronic? @ -Acute Uncomplicated (without systemic symptoms) or Complicated (systemic symptoms)? @ -Uncomplicated Side effects of treatment? @ -No Exacerbation, Progression, or Severe Exacerbation? @ -No Poses a threat to life or bodily function? How? (Chest pain, [place], [place], pneumonia, PE, COPD, DKA, ARF, appy, cholecystitis, CVA, Diverticulitis, Homicidal, Suicidal, threat to staff... and all critical care pts) @ -No (Sushma Quinones) I personally saw the patient and performed the critical portion of the service. I discussed the patient care with the resident. I directed management, care planning and final disposition of the patient. This includes, but not limited to, review of all lab work, radiological studies, EKG's, consultations, vital signs, and nursing notes. EKG interpreted by me (3pts min.) @As above X-Rays interpreted by me (1 pt min.) @None CT interpreted by me ( 1pt min.) @None U/S interpreted by me (1 pt min.) @None Critical care time of 0 minutes excluding separately billable procedures was spent in conjunction with critical care activities provided by the Resident and Attending simultaneously. I was present during no procedures for all critical portions of the procedure and as immediately available to furnish service during the entire procedure. (Alexys Cherry) - Lab Data Lab Results 02/28/25 02/28/25 Range/Units 10:36 10:36 HCG, Quant 25.4 mIU/mL Urine Color Light Yellow Urine Appearance Cloudy H (Clear) Urine pH 6.0 (5.0-8.0) Ur Specific [place] 1.023 (1.001-1.035) Urine Protein Negative (Negative) Urine Glucose (UA) Negative (Negative) Urine Ketones Negative (Negative) Urine Blood Negative (Negative) Urine Nitrite Negative (Negative) Urine Bilirubin Negative (Negative) Urine Urobilinogen <2.0 (<2.0) mg/dL Ur Leukocyte Esterase Large H (Negative) Urine RBC 1 (0-5) /hpf Urine WBC 1 (0-5) /hpf Ur Squamous Epith Cells 38 H (0-4) /hpf Urine Mucus Many H (None) /hpf Disposition Is patient prescribed a controlled substance at d/c from ED?: No Time of Disposition: 11:00 <Sushma Quinones - Last Filed: 02/28/25 11:26> <Alexys Cherry - Last Filed: 03/03/25 20:15> Clinical Impression: Disposition: HOME SELF-CARE Additional Instructions: Patient is to follow-up with PCP in 1 to 2 days to establish routine care. Patient is to take vitamin daily. Patient is reminded to hydrate adequately. Regarding headaches or pain, Tylenol was recommended to patient. Please return to ED if symptoms worsen, increasing abdominal pain or if there is increased vaginal bleeding accompanied with fevers or chills. Prescriptions: Qfe-Wfvj-Uwauy Acid [-U Capsule (formulary)] 1 cap PO DAILY #30 cap Referrals: Sushma Quinones MD [Emergency Provider] - 1-2 days
[2025-02-28 11:37] VITALS: BP 118/72; PULSE 76; RESP 16; TEMP 98.2
== END 2025-02-28 11:37 | disposition home or self-care (01) ==
LOC: EC 09:37
DX: O26.899 Other specified pregnancy related conditions, unspecified trimester (principal); R10.13 Epigastric pain; Z88.1 Allergy status to other antibiotic agents; Z3A.00 Weeks of gestation of pregnancy not specified
CPT/HCPCS: 36415; 81001; 84702; 99284

== ENCOUNTER 2025-03-17 15:07 | Emergency (ER) | payer OTHER ==
--- NOTE | 2025-03-17 16:14 | ED ---
Nausea/Vomiting/Diarrhea HPI - General Chief complaint: Nausea/Vomiting/Diarrhea Stated complaint: 11 Weeks , Vomitting/R Side Pain Time Seen by Provider: 03/17/25 15:42 Source: patient, RN notes reviewed Mode of arrival: ambulatory Limitations: no limitations - History of Present Illness Initial comments: 24-year-old female gestational age not confirmed with abdominal pain, nausea vomiting. Patient reports she has started care and has been taking her vitamins. Reports she has not been able to eat for the last 2 days. She reports that with her previous she had hyperemesis gravidarum. She denies any fevers, chills, dysuria, constipation or diarrhea. - Related Data Previous Rx's Medication Instructions Recorded Acetaminophen Tab [Tylenol] 650 mg PO Q6HR PRN tab 12/17/21 Ibuprofen [Motrin] 600 mg PO Q6HR PRN #30 tab 07/28/22 Amoxic-Pot Clav 875-125Mg 1 tab PO Q12HR 10 Days #20 tab 12/05/22 [Augmentin 875-125] Ibuprofen [Motrin] 800 mg PO Q8HR PRN #30 tab 12/05/22 Cephalexin [Keflex] 500 mg PO Q6HR #40 cap 12/26/22 Ketorolac [Toradol] 10 mg PO Q8HR #15 tab 12/26/22 Ibuprofen [Motrin] 800 mg PO Q8HR PRN #30 tab 04/12/23 Ondansetron Odt [Zofran Odt] 4 mg PO Q8HR PRN #10 tab 04/12/23 Albuterol Inhaler [Ventolin Hfa 1 - 2 puff INHALATION Q6H PRN #1 12/06/23 Inhaler] each Albuterol Nebulized [Ventolin 2.5 mg INHALATION Q4H PRN #75 ml 12/06/23 Nebulized] Vim-Mtra-Ingaw Acid 1 cap PO DAILY #30 cap 02/28/25 [-U Capsule (formulary)] Cephalexin [Keflex] 500 mg PO Q12HR 1 Days #14 cap 03/17/25 Ondansetron [Zofran] 4 mg PO Q8HR PRN #15 tab 03/17/25 Allergies Allergy/AdvReac Type Severity Reaction Status Date / Time azithromycin AdvReac Nausea & Verified 03/17/25 15:15 Vomiting Review of Systems ROS Statement: Those systems with pertinent positive or pertinent negative responses have been documented in the HPI. ROS Other: All systems not noted in ROS Statement are negative. Constitutional: Denies: fever, chills Cardiovascular: Denies: chest pain, palpitations Gastrointestinal: Reports: abdominal pain, nausea, vomiting. Denies: diarrhea, constipation Genitourinary: Denies: urgency, dysuria Musculoskeletal: Denies: back pain Skin: Denies: rash, lesions Neurological: Denies: headache, weakness Past Medical History Past Medical History: No Reported History Additional Past Medical History / Comment(s): endometriosis,ovrian cyst History of Any Multi-Drug Resistant Organisms: None Reported Past Surgical History: No Surgical Hx Reported Additional Past Surgical History / Comment(s): laprascopic ovarian cyst removal Past Anesthesia/Blood Transfusion Reactions: No Reported Reaction Past Psychological History: Anxiety, Depression Smoking Status: Never smoker Past Alcohol Use History: None Reported Past Drug Use History: Marijuana - Past Family History Mother Family Medical History: No Reported History Additional Family Medical History / Comment(s): ovarian cysts Father Family Medical History: Myocardial Infarction ([place]) Additional Family Medical History / Comment(s): father in june m a heart attack General Exam Limitations: no limitations General appearance: alert, in no apparent distress Respiratory exam: Present: normal lung sounds bilaterally. Absent: respiratory distress, wheezes Cardiovascular Exam: Present: regular rate, normal rhythm GI/Abdominal exam: Present: soft. Absent: distended, tenderness Neurological exam: Present: alert, oriented X3 Psychiatric exam: Present: normal affect, normal mood Skin exam: Present: warm, dry, intact Course Vital Signs 03/17/25 03/17/25 03/17/25 15:13 18:27 19:17 Temperature 98.3 F 97.6 F 98.7 F Pulse Rate 74 68 75 Respiratory 16 18 18 Rate Blood Pressure 125/83 134/78 121/72 O2 Sat by Pulse 98 98 98 Oximetry Medical Decision Making - Medical Decision Making Was pt. sent in by a medical professional or institution (, PA, BOOKKEEPING CLERKS SUPERVISOR, urgent care, hospital, or custodial...) When possible be specific @ -No Did you speak to anyone other than the patient for history (EMS, parent, family, police, friend...)? What history was obtained from this source @ -No Did you review nursing and triage notes (agree or disagree)? Why? @ -I reviewed and agree with nursing and triage notes Were old charts reviewed (outside hosp., previous admission, EMS record, old EKG, old radiological studies, urgent care reports/EKG's, custodial records)? Report findings @ -No old charts were reviewed Differential Diagnosis? @ -Differential Abdominal Pain Women: Appendicitis, Cholecystitis, diverticulosis, ischemic bowel, pancreatitis, hepatitis, UTI, gastroenteritis, AAA, incarcerated hernia, bowel obstruction, constipation, inflammatory bowel, hepatitis, peptic ulcer disease, splenic infarction, perforated viscus, vulvitis, ovarian torsion, PID, kidney stone, placenta abruption, this is not meant to be an all-inclusive list EKG interpreted by me (3pts min.). @ -As above X-rays interpreted by me (1pt min.). @ -None done CT interpreted by me (1pt min.). @ -None done U/S interpreted by me (1pt. min.). @ -None done What testing was considered but not performed or refused? (CT, X-rays, U/S, labs)? Why? @ -None What meds were considered but not given or refused? Why? @ -None Did you discuss the management of the patient with other professionals (professionals i.e. , PA, BOOKKEEPING CLERKS SUPERVISOR, lab, RT, psych nurse, secondary social studies teacher, door worker, teacher, hazard mitigation officer, case management director)? Give summary @ -No Was smoking cessation discussed for >3mins.? @ -No Was critical care preformed (if so, how long)? @ -No Were there social determinants of health that impacted care today? How? (Homelessness, low income, unemployed, alcoholism, drug addiction, transportation, low edu. Level, literacy, decrease access to med. care, correction, rehab)? @ -No Was there de-escalation of care discussed even if they declined (Discuss DNR or withdrawal of care, Hospice)? DNR status @ -No What co-morbidities impacted this encounter? (DM, HTN, Smoking, COPD, CAD, Cancer, CVA, ARF, Chemo, Hep., AIDS, mental health diagnosis, sleep apnea, morbid obesity)? @ -None Was patient admitted / discharged? Hospital course, mention meds given and route, prescriptions, significant lab abnormalities, going to OR and other pertinent info. @ -Patient received fluid bolus and Zofran and symptoms improved. Labs shows hCG is sufficiently elevated. UA suggestive of UTI. Patient will be discharged home with self-care. Patient will be discharged with antibiotic course and Zofran. ultrasound shows viable intrauterine dated around 5 weeks and 5 days based on crown-rump length. Patient to follow-up with PCP in 1 to 2 days and follow routine care. Return precautions discussed. Undiagnosed new problem with uncertain prognosis? @ -No Drug Therapy requiring intensive monitoring for toxicity (Heparin, Nitro, Insulin, Cardizem)? @ -No Were any procedures done? @ -No Diagnosis/symptom? @ -Hyperemesis gravidarum, UTI Acute, or Chronic, or Acute on Chronic? @ -Acute Uncomplicated (without systemic symptoms) or Complicated (systemic symptoms)? @ -Default Side effects of treatment? @ -No Exacerbation, Progression, or Severe Exacerbation? @ -No Poses a threat to life or bodily function? How? (Chest pain, [place], [place], pneumonia, PE, COPD, DKA, ARF, appy, cholecystitis, CVA, Diverticulitis, Homicidal, Suicidal, threat to staff... and all critical care pts) @ -No - Lab Data Result diagrams: 03/17/25 17:15 03/17/25 17:15 Lab Results 03/17/25 03/17/25 03/17/25 Range/Units 17:15 17:15 18:24 WBC 7.15 (4.50-10.00) 10*3/uL RBC 4.28 (4.10-5.20) 10*6/uL Hgb 13.2 (12.0-15.0) g/dL Hct 38.3 (37.2-46.3) % MCV 89.5 (80.0-97.0) fL MCH 30.8 (27.0-32.0) pg MCHC 34.5 (32.0-37.0) g/dL Plt Count 261 (140-440) 10*3/uL MPV 10.0 (9.5-12.2) fL Immature Gran % (Auto) 0.3 % Neutrophils % 68.4 % Lymphocytes % 24.9 % Monocytes % 6.3 % Eosinophils % 0.0 % Basophils % 0.1 % Immature Gran # 0.02 (0.00-0.04) 10*3/uL Neutrophils # 4.89 (1.80-7.70) 10*3/uL Lymphocytes # 1.78 (0.90-5.00) 10*3/uL Monocytes # 0.45 (0.20-1.00) 10*3/uL Eosinophils # 0.00 L (0.04-0.35) 10*3/uL Basophils # 0.01 (0.00-0.10) 10*3/uL Sodium 139 (137-145) mmol/L Potassium 3.5 (3.5-5.1) mmol/L Chloride 106 (98-107) mmol/L Carbon Dioxide 23 (22-30) mmol/L Anion Gap 10 mmol/L BUN 6 L (7-17) mg/dL Creatinine 0.42 L (0.52-1.04) mg/dL Est GFR (CKD-EPI)AfAm >90 (>60 ml/min/1.73 sqM) Est GFR (CKD-EPI)NonAf >90 (>60 ml/min/1.73 sqM) Glucose 92 (74-99) mg/dL Calcium 9.5 (8.4-10.2) mg/dL Total Bilirubin 0.8 (0.2-1.3) mg/dL AST 17 (14-36) U/L ALT 13 (4-34) U/L Alkaline Phosphatase 50 (38-126) U/L Total Protein 7.7 (6.3-8.2) g/dL Albumin 4.9 (3.5-5.0) g/dL Lipase 65 (23-300) U/L HCG, Quant 50561.8 mIU/mL Urine Color Yellow Urine Appearance Cloudy H (Clear) Urine pH 6.0 (5.0-8.0) Ur Specific [place] 1.028 (1.001-1.035) Urine Protein Trace H (Negative) Urine Glucose (UA) Negative (Negative) Urine Ketones 4+ H (Negative) Urine Blood Negative (Negative) Urine Nitrite Negative (Negative) Urine Bilirubin Negative (Negative) Urine Urobilinogen 2.0 (<2.0) mg/dL Ur Leukocyte Esterase Large H (Negative) Urine RBC 5 (0-5) /hpf Urine WBC 39 H (0-5) /hpf Ur Squamous Epith Cells 40 H (0-4) /hpf Urine Mucus Many H (None) /hpf Disposition Clinical Impression: Hyperemesis gravidarum, UTI (urinary tract infection) Disposition: HOME SELF-CARE Additional Instructions: Every disease is a spectrum and a small chance still exists that a serious condition could develop, for this reason, please monitor yourself closely for new, changing or worsening symptoms, symptoms that persist beyond 48 hours, any further episodes of vomiting blood, difficulty in breathing, severe abdominal pain, symptoms that did not improve in the next 48 hours, black or bloody stools, fever, inability to tolerate/keep down fluids or your medications, inability to follow up with outpatient providers as instructed and should you experience these symptoms or should you have any further concerns for your wellbeing please return to the ED or call 911 immediately. PLEASE take prescriptions as listed in discharge instructions. PLEASE call your primary care physician as soon as possible to arrange / discuss plan for followup appointment. Appointment in the next 1-3 days is strongly encouraged if possible. PLEASE let us know here before you leave if there is anything further we can do to be of any assistance. Take care and feel Better! Prescriptions: Cephalexin [Keflex] 500 mg PO Q12HR 1 Days #14 cap Ondansetron [Zofran] 4 mg PO Q8HR PRN #15 tab PRN Reason: Nausea And Vomiting Is patient prescribed a controlled substance at d/c from ED?: No Referrals: None,Stated [Primary Care Provider] - 1-2 days
[2025-03-17 17:20] LABS: Basophils # (A) 0.01 10*3/uL (0.00-0.10); Basophils % (A) 0.1 %; HCT 38.3 % (37.2-46.3); HGB 13.2 g/dL (12.0-15.0); Lymphocytes # (A) 1.78 10*3/uL (0.90-5.00); Lymphocytes % (A) 24.9 %; MCH 30.8 pg (27.0-32.0); MCHC 34.5 g/dL (32.0-37.0); MCV 89.5 fL (80.0-97.0); Monocytes # (A) 0.45 10*3/uL (0.20-1.00); Monocytes % (A) 6.3 %; Neutrophils # (A) 4.89 10*3/uL (1.80-7.70); Neutrophils % (A) 68.4 %; Platelet Count 261 10*3/uL (140-440); RBC 4.28 10*6/uL (4.10-5.20); RDW 14.4 % (11.5-14.5); WBC 7.15 10*3/uL (4.50-10.00)
[2025-03-17] MEDS: SODIUM CHLORIDE 0.9% 1,000 ML IV STA (17:20)
[2025-03-17] MEDS: ONDANSETRON 4 MG/2 ML VIAL IVP STA (17:21)
[2025-03-17 17:38] LABS: ALT 13 U/L (4-34); AST 17 U/L (14-36); African American GFR (CKD) >90 (>60 ml/min/1.73 sqM); Albumin 4.9 g/dL (3.5-5.0); Alkaline Phosphatase 50 U/L (38-126); Anion Gap 10 mmol/L; Blood Urea Nitrogen 6 mg/dL (7-17); Calcium 9.5 mg/dL (8.4-10.2); Carbon Dioxide 23 mmol/L (22-30); Chloride 106 mmol/L (98-107); Glucose 92 mg/dL (74-99); Lipase 65 U/L (23-300); Non-African American GFR(CKD) >90 (>60 ml/min/1.73 sqM); Potassium 3.5 mmol/L (3.5-5.1); Sodium 139 mmol/L (137-145); Total Bilirubin 0.8 mg/dL (0.2-1.3); Total Protein 7.7 g/dL (6.3-8.2)
[2025-03-17 18:22] LABS: HCG,Quantitative Serum 30505.8 mIU/mL
[2025-03-17 18:28] VITALS: RESP 18
[2025-03-17 18:39] LABS: Appearance,Urine Cloudy (Clear); Bilirubin,Urine Negative (Negative); Blood,Urine Negative (Negative); Color,Urine Yellow; Glucose,Urine (UA) Negative (Negative); Ketones,Urine 4+ (Negative); Leukocyte Esterase,Urine Large (Negative); Mucus,Urine Many /hpf; Nitrite,Urine Negative (Negative); Protein,Urine Trace (Negative); RBC,Urine 5 /hpf (0-5); Specific Gravity,Urine 1.028 (1.001-1.035); Squamous Epithelial Cell,Urine 40 /hpf (0-4); WBC,Urine 39 /hpf (0-5)
--- NOTE | 2025-03-17 18:39 | US ---
EXAMINATION TYPE: Transabdominal DATE OF EXAM: 03/17/2025 6:06 PM COMPARISON: NONE CLINICAL INDICATION: Female, 24 years old with history of confirmation of IUP; patient states right s ided pain upper and left shoulder pain. no ultrasound for this yet. TECHNIQUE: Transabdominal (TA) with grayscale and color Doppler imaging including first trimester pre gnancy. FINDINGS: EXAM MEASUREMENTS: GESTATIONAL AGE / DATING Physician Established: Not yet established Dates by LMP: (11 weeks/6 days) EDC: 09/30/2025 Dates by First Scan: No previous this is first scan Dates by Current Scan for: (5 weeks/6 days) EDC: 11/11/2025 MATERNAL ANATOMY Uterus: 9.5 x 5.7 x 6.4 Right Ovary: 4.2 x 2.5 x 2.5cm Left Ovary: 2.0 x 2.3 x 1.9 Post CDS / Adnexa: wnl Presence of free fluid: not seen Presence of corpus luteal cyst: there is a 2.8 x 1.7 x 1.9cm anechoic area seen within the right ovar y Presence of subchorionic bleed: not seen GESTATION / SURVEY CRL: 0.22cm (5 weeks/5 days) Gestational Sac morphology: Normal Gestational Sac MSD: 1.57cm (5 weeks/6 days) Yolk Sac (normal less than 6mm): 3mm Cardiac Activity/Heart Rate: 121 bpm Rhythm: Normal IUP: Viable IUP Date of LMP: states 12/24/2024 Beta HcG (if available): Not available at this time IMPRESSION: 1. Single intrauterine gestation estimated at 5 weeks 5 days gestation based on crown-rump length. Ca rdiac activity measures 121 bpm was observed. [facility], , 03/17/2025 6:37 PM
[2025-03-17 19:18] VITALS: BP 121/72; PULSE 75; TEMP 98.7
[2025-03-17] MEDS: CEPHALEXIN 500 MG CAP PO STA (19:33)
== END 2025-03-17 19:34 | disposition home or self-care (01) ==
LOC: EC 15:07
DX: O21.0 Mild hyperemesis gravidarum (principal); O23.41 Unspecified infection of urinary tract in pregnancy, first trimester; N39.0 Urinary tract infection, site not specified; Z88.1 Allergy status to other antibiotic agents; Z3A.11 11 weeks gestation of pregnancy
CPT/HCPCS: 36415; 80053; 83690; 85025; 81001; 84702; 87086; 76801; 99284; 96374; J2405